=== PATIENT | male | born 1960 | race American Indian/Alaskan Native ===

== ENCOUNTER 2018-03-21 13:48 | Inpatient (IN) | payer OTHER ==
[2018-03-21] MEDS ORDERED: NACL 0.9% 1000 ML 2,000 ML ONE (14:19)
[2018-03-21] MEDS ORDERED: NACL 0.9% 500 ML 500 ML IV ONE (14:21)
[2018-03-21] MEDS ORDERED: TYLENOL PO STA (14:21)
[2018-03-21 14:25] LABS: Hematocrit 41.8 % (35.5-45.6); Hemoglobin 14.2 gm/dl (11.8-15.2); Mean Corpuscular HGB Conc 34 % (32-34); Mean Corpuscular Hemoglobin 32 pg (28-32); Mean Corpuscular Volume 95 fl (84-94); Platelet Count 142 K/mm3 (140-440); Red Blood Count 4.39 M/mm3 (3.65-5.03); Red Cell Distribution Width 15.6 % (13.2-15.2)
[2018-03-21 14:34] LABS: Calcium 9.1 mg/dL (8.4-10.2)
[2018-03-21 15:01] LABS: Basophils % (Manual) 0 % (0.0-1.8); Eosinophils % (Manual) 0 % (0.0-4.3); Total Cells Counted 100
[2018-03-21 15:02] LABS: INR 0.97 (0.87-1.13)
[2018-03-21 15:02] LABS: Anisocytosis 1+; Large Platelets Few; Platelet Estimate Cons
[2018-03-21] MEDS ORDERED: VANCOMYCIN/NS 1 GM/250 ML 1 GM/250 ML BAG IV ONE (15:08)
[2018-03-21] MEDS ORDERED: ROCEPHIN 1,000 MG in NACL 0.9% 50 ML IV ONE (15:08)
[2018-03-21] MEDS ORDERED: NACL 0.9% 1000 ML 1,000 ML IV ONE (15:11)
--- NOTE | 2018-03-21 15:14 | XRay Report ---
AP chest: SOB There is a moderately dense infiltrate primarily involving the right upper lobe and probably also involving the perihilar region. The left lung appears generally clear. The lungs are hypoventilated making cardiac size evaluation difficult there is no overt evidence of enlargement or vascular congestion. There is no priors exam for comparison. Impressions: The findings are consistent with right sided pneumonia.
[2018-03-21 15:38] LABS: Bilirubin,Direct 2.2 mg/dL (0-0.2)
[2018-03-21] MEDS ORDERED: VANCOMYCIN 2,000 MG in NACL 0.9% 500 ML 500 ML IV ONE (16:00)
[2018-03-21] MEDS ORDERED: VANCOMYCIN PHARMACY TO DOSE IV SCH (16:00)
[2018-03-21] MEDS ORDERED: ROCEPHIN/NS 1 GM/50 ML 1 GM/50 ML BAG IV SCH (16:00)
--- NOTE | 2018-03-21 16:31 | Cat Scan Report ---
FINAL REPORT PROCEDURE: CT abdomen and pelvis without contrast. TECHNIQUE: Computerized axial tomography of the abdomen and pelvis was performed without intravenous contrast. This study is performed without intravascular contrast material and its sensitivity for abdominal and pelvic pathology, including neoplasms, inflammation, abscess, free fluid, thrombosis, arterial dissection and infarction, is reduced compared with a contrast enhanced study. HISTORY: Fever. COMPARISON: No prior studies are available for comparison. FINDINGS: There is some patchy opacity in both lower lobes. This could represent pneumonia or subsegmental atelectasis. There is a partially imaged nodule located peripherally in the right middle lobe. This measures 6.6 millimeters as far as visualized. Follow-up studies to document stability or resolution are recommended. There is a small right pleural effusion. The heart size is normal. There is a small focal mass of low attenuation in the left lobe of the liver. This measures 13 millimeters in maximum dimension. This probably represents a benign lesion such as a cyst or cavernous hemangioma. The exact etiology is uncertain however. The gallbladder is present. The pancreas and spleen are grossly normal. The adrenal glands are not enlarged. Both kidneys appear normal in size and configuration. There is a tiny nonobstructing calculus in the midportion of the right kidney. This measures 2.3 millimeters. The abdominal aorta has a normal caliber. There is no retroperitoneal adenopathy. The unopacified gastrointestinal tract is unremarkable. A normal appendix is visible. The bladder, seminal vesicles and prostate appear normal. The regional skeleton appears intact. IMPRESSION: Probable pneumonia or subsegmental atelectasis in both lower lobes. Small indeterminate nodule in the right middle lobe. Small mass in the left lobe of the liver which is likely benign. Tiny nonobstructing right renal calculus.
[2018-03-21] MEDS ORDERED: BENADRYL PO ONE (17:54)
[2018-03-21] MEDS ORDERED: NACL 0.9% 500 ML 500 ML ONE (17:54)
--- NOTE | 2018-03-21 18:07 | Emergency Department Report ---
ED Fever HPI - General Chief Complaint: Fever Stated Complaint: FEVER WEAK AND COLD Time Seen by Provider: 03/21/18 14:40 Source: patient, family Exam Limitations: no limitations - History of Present Illness Timing/Duration: week Fever Severity/Quality: subjective Associated Symptoms: cough (with sputum production), muscle aches, shortness of breath, weakness (generalized). denies: abdominal pain, chest pain, confusion, diaphoresis, headache, nausea/vomiting, rash, sore throat, stiff neck, syncope ED Review of Systems ROS: Stated complaint: FEVER WEAK AND COLD Other details as noted in HPI Other: GENERAL: fever chills SKIN: No changes in skin or hair, no itching, no rashes, no jaundice HEAD: No trauma, headache, or visual changes EYES: No blurriness, tearing, itching, acute visual loss, conjunctival discoloration, or scleral icterus EARS: No hearing loss, tinnitus, vertigo, or earache NOSE: No rhinorrhea, stuffiness, sneezing, itching, or epistaxis MOUTH: No bleeding gums, hoarseness, sore throat, or swelling CARDIAC: No new murmur, chest pain, palpitations, dyspnea on exertion, orthopnea , PND, or edema RESPIRATORY: dyspnea, cough productive GI: No change in appetite, nausea, vomiting, dysphagia, change in bowel frequency, diarrhea, constipation, bleeding, hematemesis, melena, hematochezia, or abdominal pain URINARY: No frequency, urgency, polyuria, dysuria, hematuria, or incontinence MUSCULOSKELETAL: No muscle weakness, joint stiffness, decrease in range of motion, redness, swelling NEUROLOGIC: weakness generalized. HEMATOLOGIC: No anemia, easy bruising, bleeding, petechiae, or purpura ED Past Medical Hx - Past Medical History Previous Medical History?: No - Surgical History Past Surgical History?: No - Social History Smoking Status: Current Every Day Smoker Substance Use Type: Alcohol ED Physical Exam - General Limitations: No Limitations - Other Other exam information: GENERAL: Patient in no acute distress. Febrile HEAD: Normocephalic, atraumatic EYES: PERRLA, EOM intact, no scleral icterus, visual horta and acuity wnl NOSE: No tenderness, discharge, sinus tenderness MOUTH: No erythema, bleeding, exudate HEART: Regular rate and rhythm, no murmur, S1-S2 are auscultated, pulses are symmetric LUNGS: tachypnea, rales ABDOMEN: Normal bowel sounds, no tenderness, no rebound, no guarding, no masses , no CVA tenderness MUSCULOSKELETAL: Normal joint range of motion, no redness, no swelling, no tenderness NEUROLOGIC: GCS 15, Alert and Oriented x3, Cranial nerves intact, normal sensation, normal strength, normal gait, no cerebellar deficit PSYCHIATRIC: No homicidal or suicidal ideation, no anxiety, no depression, no hallucinations SKIN: Skin is warm and dry, no wounds, no rashes ED Course Vital Signs 03/21/18 03/21/18 03/21/18 13:52 15:19 16:15 Temperature 103 F H Pulse Rate 108 H 91 H Respiratory 20 33 H Rate Blood Pressure 154/97 142/86 146/90 O2 Sat by Pulse 88 Oximetry 03/21/18 03/21/18 03/21/18 17:54 18:00 19:19 Temperature 99.2 F Pulse Rate 79 90 Respiratory 28 H 14 Rate Blood Pressure 145/72 135/70 O2 Sat by Pulse Oximetry ED Medical Decision Making - Lab Data Result diagrams: 03/21/18 14:06 03/21/18 14:06 Laboratory Results - last 24 hr 03/21/18 03/21/18 03/21/18 14:06 14:06 14:11 WBC 17.1 H RBC 4.39 Hgb 14.2 Hct 41.8 MCV 95 H MCH 32 MCHC 34 RDW 15.6 H Plt Count 142 Add Manual Diff Complete Total Counted 100 Seg Neuts % (Manual) 94.0 H Band Neutrophils % 0 Lymphocytes % (Manual) 4.0 L Reactive Lymphs % (Man) 0 Monocytes % (Manual) 2.0 Eosinophils % (Manual) 0 Basophils % (Manual) 0 Metamyelocytes % 0 Myelocytes % 0 Promyelocytes % 0 Blast Cells % 0 Nucleated RBC % Not Reportable Seg Neutrophils # Man 16.1 H Band Neutrophils # 0.0 Lymphocytes # (Manual) 0.7 L Abs React Lymphs (Man) 0.0 Monocytes # (Manual) 0.3 Eosinophils # (Manual) 0.0 Basophils # (Manual) 0.0 Metamyelocytes # 0.0 Myelocytes # 0.0 Promyelocytes # 0.0 Blast Cells # 0.0 WBC Morphology Not Reportable Hypersegmented Neuts Not Reportable Hyposegmented Neuts Not Reportable Hypogranular Neuts Not Reportable Smudge Cells Not Reportable Toxic Granulation Not Reportable Toxic Vacuolation Not Reportable Dohle Bodies Not Reportable Pelger-Huet Anomaly Not Reportable [place] Rods Not Reportable Platelet Estimate Cons Clumped Platelets Not Reportable Plt Clumps, EDTA Not Reportable Large Platelets Few Giant Platelets Not Reportable Platelet Satelliting Not Reportable Plt Morphology Comment Not Reportable RBC Morphology Not Reportable Dimorphic RBCs Not Reportable Polychromasia Not Reportable Hypochromasia Not Reportable Poikilocytosis Not Reportable Anisocytosis 1+ Microcytosis Not Reportable Macrocytosis Not Reportable Spherocytes Not Reportable Pappenheimer Bodies Not Reportable Sickle Cells Not Reportable Target Cells Not Reportable Tear Drop Cells Not Reportable Ovalocytes Not Reportable Helmet Cells Not Reportable [place] Bodies Not Reportable [place] Rings Not Reportable [place] Cells Not Reportable Bite Cells Not Reportable Crenated Cell Not Reportable Elliptocytes Not Reportable Acanthocytes (Spur) Not Reportable Rouleaux Not Reportable Hemoglobin C Crystals Not Reportable Schistocytes Not Reportable Malaria parasites Not Reportable Jeovany Bodies Not Reportable Hem Pathologist Commnt No PT INR VBG pH Sodium 127 L Potassium 3.5 L Chloride 83.6 L Carbon Dioxide 24 Anion Gap 23 BUN 49 H Creatinine 6.4 H Estimated GFR 11 BUN/Creatinine Ratio 8 Glucose 114 H Lactic Acid 1.50 Calcium 9.1 Total Bilirubin Direct Bilirubin Indirect Bilirubin AST ALT Alkaline Phosphatase Troponin T NT-Pro-B Natriuret Pep Total Protein Albumin Albumin/Globulin Ratio Urine Color Urine Turbidity Urine pH Ur Specific [place] Urine Protein Urine Glucose (UA) Urine Ketones Urine Blood Urine Nitrite Urine Bilirubin Urine Urobilinogen Ur Leukocyte Esterase Urine WBC (Auto) Urine RBC (Auto) U Epithel Cells (Auto) Urine Bacteria (Auto) Amorphous Crystals 03/21/18 03/21/18 03/21/18 14:25 14:31 15:13 WBC RBC Hgb Hct MCV MCH MCHC RDW Plt Count Add Manual Diff Total Counted Seg Neuts % (Manual) Band Neutrophils % Lymphocytes % (Manual) Reactive Lymphs % (Man) Monocytes % (Manual) Eosinophils % (Manual) Basophils % (Manual) Metamyelocytes % Myelocytes % Promyelocytes % Blast Cells % Nucleated RBC % Seg Neutrophils # Man Band Neutrophils # Lymphocytes # (Manual) Abs React Lymphs (Man) Monocytes # (Manual) Eosinophils # (Manual) Basophils # (Manual) Metamyelocytes # Myelocytes # Promyelocytes # Blast Cells # WBC Morphology Hypersegmented Neuts Hyposegmented Neuts Hypogranular Neuts Smudge Cells Toxic Granulation Toxic Vacuolation Dohle Bodies Pelger-Huet Anomaly [place] Rods Platelet Estimate Clumped Platelets Plt Clumps, EDTA Large Platelets Giant Platelets Platelet Satelliting Plt Morphology Comment RBC Morphology Dimorphic RBCs Polychromasia Hypochromasia Poikilocytosis Anisocytosis Microcytosis Macrocytosis Spherocytes Pappenheimer Bodies Sickle Cells Target Cells Tear Drop Cells Ovalocytes Helmet Cells [place]-L[place] Bodies [place] Rings [place] Cells Bite Cells Crenated Cell Elliptocytes Acanthocytes (Spur) Rouleaux Hemoglobin C Crystals Schistocytes Malaria parasites Jeovany Bodies Hem Pathologist Commnt PT 13.4 INR 0.97 VBG pH 7.371 Sodium Potassium Chloride Carbon Dioxide Anion Gap BUN Creatinine Estimated GFR BUN/Creatinine Ratio Glucose Lactic Acid Calcium Total Bilirubin 2.90 H Direct Bilirubin 2.2 H Indirect Bilirubin 0.7 AST 234 H ALT 195 H Alkaline Phosphatase 148 H Troponin T NT-Pro-B Natriuret Pep Total Protein 7.3 Albumin 3.0 L Albumin/Globulin Ratio 0.7 Urine Color Urine Turbidity Urine pH Ur Specific [place] Urine Protein Urine Glucose (UA) Urine Ketones Urine Blood Urine Nitrite Urine Bilirubin Urine Urobilinogen Ur Leukocyte Esterase Urine WBC (Auto) Urine RBC (Auto) U Epithel Cells (Auto) Urine Bacteria (Auto) Amorphous Crystals 03/21/18 03/21/18 03/21/18 15:17 17:11 17:52 WBC RBC Hgb Hct MCV MCH MCHC RDW Plt Count Add Manual Diff Total Counted Seg Neuts % (Manual) Band Neutrophils % Lymphocytes % (Manual) Reactive Lymphs % (Man) Monocytes % (Manual) Eosinophils % (Manual) Basophils % (Manual) Metamyelocytes % Myelocytes % Promyelocytes % Blast Cells % Nucleated RBC % Seg Neutrophils # Man Band Neutrophils # Lymphocytes # (Manual) Abs React Lymphs (Man) Monocytes # (Manual) Eosinophils # (Manual) Basophils # (Manual) Metamyelocytes # Myelocytes # Promyelocytes # Blast Cells # WBC Morphology Hypersegmented Neuts Hyposegmented Neuts Hypogranular Neuts Smudge Cells Toxic Granulation Toxic Vacuolation Dohle Bodies Pelger-Huet Anomaly [place] Rods Platelet Estimate Clumped Platelets Plt Clumps, EDTA Large Platelets Giant Platelets Platelet Satelliting Plt Morphology Comment RBC Morphology Dimorphic RBCs Polychromasia Hypochromasia Poikilocytosis Anisocytosis Microcytosis Macrocytosis Spherocytes Pappenheimer Bodies Sickle Cells Target Cells Tear Drop Cells Ovalocytes Helmet Cells [place] Bodies Elmer Rings [place] Cells Bite Cells Crenated Cell Elliptocytes Acanthocytes (Spur) Rouleaux Hemoglobin C Crystals Schistocytes Malaria parasites Jeovany Bodies Hem Pathologist Commnt PT INR VBG pH Sodium Potassium Chloride Carbon Dioxide Anion Gap BUN Creatinine Estimated GFR BUN/Creatinine Ratio Glucose Lactic Acid 1.10 Calcium Total Bilirubin Direct Bilirubin Indirect Bilirubin AST ALT Alkaline Phosphatase Troponin T < 0.010 NT-Pro-B Natriuret Pep 1188 H Total Protein Albumin Albumin/Globulin Ratio Urine Color Yellow Urine Turbidity Clear Urine pH 5.0 Ur Specific [place] 1.010 Urine Protein 30 mg/dl Urine Glucose (UA) Neg Urine Ketones Neg Urine Blood Mod Urine Nitrite Neg Urine Bilirubin Neg Urine Urobilinogen 4.0 Ur Leukocyte Esterase Neg Urine WBC (Auto) 5.0 Urine RBC (Auto) 16.0 U Epithel Cells (Auto) 1.0 Urine Bacteria (Auto) 1+ Amorphous Crystals Few - EKG Data When compared to previous EKG there are: no significant change - Radiology Data Radiology results: report reviewed - Medical Decision Making Patient comfortable. Updated with results. Plan admit for further evaluation. Hospitalists accepts admission. Critical care attestation.: If time is entered above; I have spent that time in minutes in the direct care of this critically ill patient, excluding procedure time. ED Disposition Clinical Impression: Weakness Sepsis Qualifiers: Sepsis type: sepsis due to unspecified organism Qualified Code(s): A41.9 - Sepsis, unspecified organism Pneumonia Qualifiers: Pneumonia type: due to unspecified organism Laterality: right Lung location: lower lobe of lung Qualified Code(s): J18.1 - Lobar pneumonia, unspecified organism Acute renal failure Qualifiers: Acute renal failure type: unspecified Qualified Code(s): N17.9 - Acute kidney failure, unspecified Disposition: OP ADMIT IP TO THIS HOSP Is pt being admited?: Yes Condition: Stable Instructions: Bacterial Pneumonia (ED) Referrals: PRIMARY CARE, [Primary Care Provider] - 3-5 Days Time of Disposition: 18:07
[2018-03-21 18:23] LABS: Amorphous Crystals,Urine Few; Bacteria,Urine 1+ /HPF (Negative); Bilirubin,Urine NEG (Negative); Blood,Urine MOD (Negative); Color,Urine Yellow (Yellow)
--- NOTE | 2018-03-21 18:56 | History and Physical Report ---
History of Present Illness Date of examination: 03/21/18 Date of admission: 03/21/2018 Chief complaint: Chief complaint: Fever and cough for 4 days History of present illness: History of present illness: 58-year-old black male with no significant past medical history comes in for fever and cough of 4 days duration. Cough productive of mucoid to yellow sputum. No chills. Some shortness of breath present. No chest pain. Patient smokes a word to half a pack a day. For the last 40 years. No other drugs. No history of congestive heart failure or coronary artery disease. No exacerbating or relieving factors Past History Past Medical History: No medical history Past Surgical History: No surgical history Social history: lives with family, smoking, full code Family history: hypertension Medications and Allergies Allergies Allergy/AdvReac Type Severity Reaction Status Date / Time No Known Allergies Allergy Unverified 03/21/18 13:52 Active Meds: Active Medications Ceftriaxone Sodium (Rocephin/Ns 1 Gm/50 Ml) 1 gm in 50 mls @ 100 mls/hr IV ONCE ALF Last Admin: 03/21/18 16:57 Dose: 100 mls/hr Vancomycin HCl (Vancomycin Pharmacy To Dose) 1 each IV PKCONSULT [facility] Review of Systems All systems: negative Constitutional: fever, sweats, weakness, malaise, no weight loss, no weight gain , no chills, no anorexia, no fatigue, no lethargy, no chronic headaches, no poor appetite, no daytime sleepiness, no chronic pain, no other Ears, nose, mouth and throat: no dysphagia, no hoarseness, no sore throat, no swelling in mouth, no swelling in throat Cardiovascular: shortness of breath, no chest pain, no orthopnea, no palpitations, no rapid/irregular heart beat, no edema, no syncope, no lightheadedness Respiratory: cough, cough with sputum, shortness of breath, congestion Gastrointestinal: no abdominal pain, no nausea, no vomiting, no diarrhea, no constipation, no change in bowel habits, no hematemesis, no coffee ground emesis Genitourinary Male: no dysuria, no hematuria, no flank pain, no discharge, no urinary frequency, no urinary hesitancy, no nocturia Musculoskeletal: no neck stiffness, no neck pain, no shooting arm pain, no arm numbness/tingling, no low back pain Integumentary: no rash, no pruritis, no redness, no sores, no wounds, no jaundice, no boils, no blisters Neurological: no head injury, no transient paralysis, no paralysis, no weakness , no parathesias, no numbness, no tingling, no seizures, no syncope, no tremors , no ataxia, no lack of coordination Psychiatric: no anxiety, no memory loss, no change in sleep habits, no sleep disturbances, no insomnia, no hypersomnia, no change in appetite, no change in libido, no suicidal ideation, no disorientation, no hallucinations Endocrine: no cold intolerance, no heat intolerance, no polyphagia, no excessive thirst, no polydipsia, no polyuria, no nocturia, no excessive sweating , no flushing, no weight change Hematologic/Lymphatic: no easy bruising, no easy bleeding Allergic/Immunologic: no urticaria, no allergic rhinitis, no wheezing Exam - Constitutional Vitals: Temp Pulse Resp BP Pulse Ox 99.2 F 108 H 20 154/97 88 03/21/18 17:54 03/21/18 13:52 03/21/18 13:52 03/21/18 13:52 03/21/18 13:52 General appearance: Present: no acute distress, well-nourished - EENT Eyes: Present: PERRL ENT: hearing intact, clear oral mucosa - Neck Neck: Present: supple, normal ROM - Respiratory Respiratory effort: normal Respiratory: bilateral: CTA - Cardiovascular Heart rate: 78 Rhythm: regular Heart Sounds: Present: S1 & S2. Absent: rub, click - Extremities Extremities: no ischemia, pulses intact, pulses symmetrical, No edema Peripheral Pulses: within normal limits - Abdominal General gastrointestinal: Present: soft, non-tender, non-distended, normal bowel sounds Male genitourinary: Present: normal - Integumentary Integumentary: Present: clear, warm, dry - Musculoskeletal Musculoskeletal: gait normal, strength equal bilaterally - Psychiatric Psychiatric: appropriate mood/affect, intact judgment & insight - Neurologic Neurologic: CNII-XII intact, moves all extremities - Allied Health Allied health notes reviewed: nursing, case management Results - Labs CBC & Chem 7: 03/21/18 14:06 03/21/18 14:06 Labs: Laboratory Last Values WBC 17.1 K/mm3 (4.5-11.0) H 03/21/18 14:06 RBC 4.39 M/mm3 (3.65-5.03) 03/21/18 14:06 Hgb 14.2 gm/dl (11.8-15.2) 03/21/18 14:06 Hct 41.8 % (35.5-45.6) 03/21/18 14:06 MCV 95 fl (84-94) H 03/21/18 14:06 MCH 32 pg (28-32) 03/21/18 14:06 MCHC 34 % (32-34) 03/21/18 14:06 RDW 15.6 % (13.2-15.2) H 03/21/18 14:06 Plt Count 142 K/mm3 (140-440) 03/21/18 14:06 Add Manual Diff Complete 03/21/18 14:06 Total Counted 100 03/21/18 14:06 Seg Neuts % (Manual) 94.0 % (40.0-70.0) H 03/21/18 14:06 Band Neutrophils % 0 % 03/21/18 14:06 Lymphocytes % (Manual) 4.0 % (13.4-35.0) L 03/21/18 14:06 Reactive Lymphs % (Man) 0 % 03/21/18 14:06 Monocytes % (Manual) 2.0 % (0.0-7.3) 03/21/18 14:06 Eosinophils % (Manual) 0 % (0.0-4.3) 03/21/18 14:06 Basophils % (Manual) 0 % (0.0-1.8) 03/21/18 14:06 Metamyelocytes % 0 % 03/21/18 14:06 Myelocytes % 0 % 03/21/18 14:06 Promyelocytes % 0 % 03/21/18 14:06 Blast Cells % 0 % 03/21/18 14:06 Nucleated RBC % Not Reportable 03/21/18 14:06 Seg Neutrophils # Man 16.1 K/mm3 (1.8-7.7) H 03/21/18 14:06 Band Neutrophils # 0.0 K/mm3 03/21/18 14:06 Lymphocytes # (Manual) 0.7 K/mm3 (1.2-5.4) L 03/21/18 14:06 Abs React Lymphs (Man) 0.0 K/mm3 03/21/18 14:06 Monocytes # (Manual) 0.3 K/mm3 (0.0-0.8) 03/21/18 14:06 Eosinophils # (Manual) 0.0 K/mm3 (0.0-0.4) 03/21/18 14:06 Basophils # (Manual) 0.0 K/mm3 (0.0-0.1) 03/21/18 14:06 Metamyelocytes # 0.0 K/mm3 03/21/18 14:06 Myelocytes # 0.0 K/mm3 03/21/18 14:06 Promyelocytes # 0.0 K/mm3 03/21/18 14:06 Blast Cells # 0.0 K/mm3 03/21/18 14:06 WBC Morphology Not Reportable 03/21/18 14:06 Hypersegmented Neuts Not Reportable 03/21/18 14:06 Hyposegmented Neuts Not Reportable 03/21/18 14:06 Hypogranular Neuts Not Reportable 03/21/18 14:06 Smudge Cells Not Reportable 03/21/18 14:06 Toxic Granulation Not Reportable 03/21/18 14:06 Toxic Vacuolation Not Reportable 03/21/18 14:06 Dohle Bodies Not Reportable 03/21/18 14:06 Pelger-Huet Anomaly Not Reportable 03/21/18 14:06 [place] Rods Not Reportable 03/21/18 14:06 Platelet Estimate Cons 03/21/18 14:06 Clumped Platelets Not Reportable 03/21/18 14:06 Plt Clumps, EDTA Not Reportable 03/21/18 14:06 Large Platelets Few 03/21/18 14:06 Giant Platelets Not Reportable 03/21/18 14:06 Platelet Satelliting Not Reportable 03/21/18 14:06 Plt Morphology Comment Not Reportable 03/21/18 14:06 RBC Morphology Not Reportable 03/21/18 14:06 Dimorphic RBCs Not Reportable 03/21/18 14:06 Polychromasia Not Reportable 03/21/18 14:06 Hypochromasia Not Reportable 03/21/18 14:06 Poikilocytosis Not Reportable 03/21/18 14:06 Anisocytosis 1+ 03/21/18 14:06 Microcytosis Not Reportable 03/21/18 14:06 Macrocytosis Not Reportable 03/21/18 14:06 Spherocytes Not Reportable 03/21/18 14:06 Pappenheimer Bodies Not Reportable 03/21/18 14:06 Sickle Cells Not Reportable 03/21/18 14:06 Target Cells Not Reportable 03/21/18 14:06 Tear Drop Cells Not Reportable 03/21/18 14:06 Ovalocytes Not Reportable 03/21/18 14:06 Helmet Cells Not Reportable 03/21/18 14:06 [place] Common Bodies Not Reportable 03/21/18 14:06 [place] Rings Not Reportable 03/21/18 14:06 Corn Cells Not Reportable 03/21/18 14:06 Bite Cells Not Reportable 03/21/18 14:06 Crenated Cell Not Reportable 03/21/18 14:06 Elliptocytes Not Reportable 03/21/18 14:06 Acanthocytes (Spur) Not Reportable 03/21/18 14:06 Rouleaux Not Reportable 03/21/18 14:06 Hemoglobin C Crystals Not Reportable 03/21/18 14:06 Schistocytes Not Reportable 03/21/18 14:06 Malaria parasites Not Reportable 03/21/18 14:06 Jeovany Bodies Not Reportable 03/21/18 14:06 Hem Pathologist Commnt No 03/21/18 14:06 PT 13.4 Sec. (12.2-14.9) 03/21/18 14:31 INR 0.97 (0.87-1.13) 03/21/18 14:31 VBG pH 7.371 (7.320-7.420) 03/21/18 14:25 Sodium 127 mmol/L (137-145) L 03/21/18 14:06 Potassium 3.5 mmol/L (3.6-5.0) L 03/21/18 14:06 Chloride 83.6 mmol/L (98-107) L 03/21/18 14:06 Carbon Dioxide 24 mmol/L (22-30) 03/21/18 14:06 Anion Gap 23 mmol/L 03/21/18 14:06 BUN 49 mg/dL (9-20) H 03/21/18 14:06 Creatinine 6.4 mg/dL (0.8-1.5) H 03/21/18 14:06 Estimated GFR 11 ml/min 03/21/18 14:06 BUN/Creatinine Ratio 8 % 03/21/18 14:06 Glucose 114 mg/dL (75-100) H 03/21/18 14:06 Lactic Acid 1.10 mmol/L (0.7-2.0) 03/21/18 17:11 Calcium 9.1 mg/dL (8.4-10.2) 03/21/18 14:06 Total Bilirubin 2.90 mg/dL (0.1-1.2) H 03/21/18 15:13 Direct Bilirubin 2.2 mg/dL (0-0.2) H 03/21/18 15:13 Indirect Bilirubin 0.7 mg/dL 03/21/18 15:13 AST 234 units/L (5-40) H 03/21/18 15:13 ALT 195 units/L (7-56) H 03/21/18 15:13 Alkaline Phosphatase 148 units/L (35-129) H 03/21/18 15:13 Troponin T < 0.010 ng/mL (0.00-0.029) 03/21/18 15:17 NT-Pro-B Natriuret Pep 1188 pg/mL (0-900) H 03/21/18 15:17 Total Protein 7.3 g/dL (6.3-8.2) 03/21/18 15:13 Albumin 3.0 g/dL (3.9-5) L 03/21/18 15:13 Albumin/Globulin Ratio 0.7 % 03/21/18 15:13 Urine Color Yellow (Yellow) 03/21/18 17:52 Urine Turbidity Clear (Clear) 03/21/18 17:52 Urine pH 5.0 (5.0-7.0) 03/21/18 17:52 Ur Specific [place] 1.010 (1.003-1.030) 03/21/18 17:52 Urine Protein 30 mg/dl mg/dL (Negative) 03/21/18 17:52 Urine Glucose (UA) Neg mg/dL (Negative) 03/21/18 17:52 Urine Ketones Neg mg/dL (Negative) 03/21/18 17:52 Urine Blood Mod (Negative) 03/21/18 17:52 Urine Nitrite Neg (Negative) 03/21/18 17:52 Urine Bilirubin Neg (Negative) 03/21/18 17:52 Urine Urobilinogen 4.0 mg/dL (<2.0) 03/21/18 17:52 Ur Leukocyte Esterase Neg (Negative) 03/21/18 17:52 Urine WBC (Auto) 5.0 /HPF (0.0-6.0) 03/21/18 17:52 Urine RBC (Auto) 16.0 /HPF (0.0-6.0) 03/21/18 17:52 U Epithel Cells (Auto) 1.0 /HPF (0-13.0) 03/21/18 17:52 Urine Bacteria (Auto) 1+ /HPF (Negative) 03/21/18 17:52 Amorphous Crystals Few 03/21/18 17:52 Short CBC 03/21/18 Range/Units 14:06 WBC 17.1 H (4.5-11.0) K/mm3 Hgb 14.2 (11.8-15.2) gm/dl Hct 41.8 (35.5-45.6) % Plt Count 142 (140-440) K/mm3 BMP 03/21/18 14:06 Sodium 127 L Potassium 3.5 L Chloride 83.6 L Carbon Dioxide 24 BUN 49 H Creatinine 6.4 H Glucose 114 H Calcium 9.1 Cardiac Enzymes 03/21/18 Range/Units 15:17 Troponin T < 0.010 (0.00-0.029) ng/mL Liver Function 03/21/18 Range/Units 15:13 Total Bilirubin 2.90 H (0.1-1.2) mg/dL Direct Bilirubin 2.2 H (0-0.2) mg/dL AST 234 H (5-40) units/L ALT 195 H (7-56) units/L Alkaline Phosphatase 148 H (35-129) units/L Albumin 3.0 L (3.9-5) g/dL Urine 03/21/18 Range/Units 17:52 Urine Color Yellow (Yellow) Urine pH 5.0 (5.0-7.0) Ur Specific [place] 1.010 (1.003-1.030) Urine Protein 30 mg/dl (Negative) mg/dL Urine Glucose (UA) Neg (Negative) mg/dL - Imaging and Cardiology EKG: report reviewed (sinus bradycardia heart rate of 53 per minute no acute ST- T wave changes EKG interpreted by me.) Chest x-ray: report reviewed Imaging and Cardiology: Chest x-ray There is a moderately dense infiltrate primarily involving the right upper lobe and probably also involving the perihilar region. The left lung appears generally clear. The lungs are hypoventilated making cardiac size evaluation difficult there is no overt evidence of enlargement or vascular congestion. There is no priors exam for comparison. Impressions: The findings are consistent with right sided pneumonia. CT abdomen: IMPRESSION: Probable pneumonia or subsegmental atelectasis in both lower lobes. Small indeterminate nodule in the right middle lobe. Small mass in the left lobe of the liver which is likely benign. Tiny nonobstructing right renal calculus. Assessment and Plan Advance Directives: Yes (full code) VTE prophylaxis?: Chemical Plan of care discussed with patient/family: Yes - Patient Problems (1) SIRS (systemic inflammatory response syndrome) Current Visit: Yes Status: Acute Plan to address problem: Given the Leukocytosis, Increased Creatinine and Hyponatremia --I am in favor of SIRS. (2) Acute respiratory failure Current Visit: Yes Status: Acute Qualifiers: Respiratory failure complication: hypoxia Qualified Code(s): J96.01 - Acute respiratory failure with hypoxia Plan to address problem: Initial sats are 88 2 liters oxygen (3) Pneumonia Current Visit: Yes Status: Acute Qualifiers: Pneumonia type: due to unspecified organism Laterality: right Lung location: lower lobe of lung Qualified Code(s): J18.1 - Lobar pneumonia, unspecified organism Plan to address problem: Extensive pneumonia on the right side of the lung involving upper middle and lower lobe. IV Rocephin and Zithromax initiated. Not in favor of aspiration pneumonia. Blood cultures sputum cultures ordered. ID consult if necessary (4) OSIEL (acute kidney injury) Current Visit: Yes Status: Acute Plan to address problem: IV fluids Nephrology consult (5) Acute hyponatremia Current Visit: Yes Status: Acute Plan to address problem: IV normal saline for now SIADH a possibilty because of pneumonia (6) DVT prophylaxis Current Visit: Yes Status: Acute Plan to address problem: On Heparin 5000 IU SQ Q12h
[2018-03-21] MEDS ORDERED: ZOFRAN IV PRN (19:25)
[2018-03-21] MEDS ORDERED: TYLENOL PO PRN (19:25)
[2018-03-21] MEDS ORDERED: MORPHINE IV PRN (19:25)
[2018-03-21] MEDS ORDERED: PERCOCET 5/325 PO PRN (19:25)
[2018-03-21] MEDS ORDERED: SODIUM CHLORIDE FLUSH SYRINGE 10 ML IV PRN (19:25)
[2018-03-21] MEDS ORDERED: DUONEB *Not for PRN Use IH ONE (22:09)
[2018-03-21] MEDS: HEPARIN SUB-Q SCH (23:23)
[2018-03-21] MEDS: D5NS 1,000 ML IV SCH (23:23)
[2018-03-21] MEDS: ZITHROMAX 500 MG in NACL 0.9% 250ML 250 ML IV SCH (23:24)
[2018-03-21] MEDS: SODIUM CHLORIDE FLUSH SYRINGE 10 ML IV SCH (23:24)
[2018-03-21] MEDS: DUONEB *Not for PRN Use IH SCH (23:49)
[2018-03-22 07:55] LABS: Hematocrit 36.6 % (35.5-45.6); Hemoglobin 12.4 gm/dl (11.8-15.2); Mean Corpuscular HGB Conc 34 % (32-34); Mean Corpuscular Hemoglobin 32 pg (28-32); Mean Corpuscular Volume 95 fl (84-94); Platelet Count 144 K/mm3 (140-440); Red Blood Count 3.85 M/mm3 (3.65-5.03); Red Cell Distribution Width 15.8 % (13.2-15.2)
[2018-03-22 08:12] LABS: Albumin 2.5 g/dL (3.9-5); Calcium 7.9 mg/dL (8.4-10.2)
[2018-03-22] MEDS: DUONEB *Not for PRN Use IH SCH ×4 (08:45→19:52)
--- NOTE | 2018-03-22 09:07 | Consultation ---
History of Present Illness - History of Present Illness Thank you for the consultation ! History of present illness: Patient is a 58-year-old -[place] male who has been admitted here with 4 -5 days of fever or chills cough congestion-like symptom at home the temperature was close to 101.5 he wasn't feeling well his appetite has been very poor. Patient does not follow up with any physician and does not remember seeing a doctor in getting any blood work last several years. Last time he was seen by a physician was for, sue Davis but no lab work was done. Patient is an extremely poor historian and often times during the conversation his who was present at the bedside Correcting him for several, that he made. Patient does not take any follow-up nonsteroidal drug he does not have any known history of hepatitis B C HIV. He is admitted here with acute severe renal failure, and has not been feeling well for last 7-10 days at least Past medical history is significant for No medical problem documented as patient has not been seeing a physician Current allergies: None as he is not taking any medication Social history: Very poorly involved in his health denies any history of alcohol abuse Positive for chronic tobacco abuse off and on for last 40 years Family history: Hypertension Review of system cough cold congestion fever poor appetite last 4-5 days ongoing chronic tobacco abuse No history of any difficulty voiding and joint pain all other review of systems negative Physical examination General: No acute distress HEENT: Oral mucosa dry no pharyngeal erythema no nasal bleeding Neck: Supple no evidence of any jugular venous distention no masses Chest: few basilar crackles Heart: Regular rate and rhythm S1 and S2 heard no S3-S4 or any pericardial rub Abdomen: Soft nontender bowel sounds present no renal bruit no suprapubic masses no CVA tenderness Extremity: Dry skin less than 1+ edema no peripheral petechial rashes Endocrine: Thyroid not enlarged Psychiatric: No evidence of any agitation or aggression noted Musculoskeletal: No joint effusion noted Lab studies and pertinent imagings were reviewed My assessment and plan are as follows My assessment and plan are as follows Renal failure; severe in a patient who is 58-year-old admitted with, currently no better, also has respiratory symptoms and hematuria, Patient is in need for further workup of renal failure and is no acute emergent indication for renal replacement therapy today Given that patient is presenting with pneumonia and renal failure would like to rule out any possibility of pulmonary renal syndrome patient will need a full workup for renal failure No old records available in our system CT scan of the abdomen pelvis obtained March 21 shows evidence of pneumonia; kidneys unremarkable small kidney stone nonobstructing If his renal function fails to improve patient may require initiation of renal replacement therapy with a central venous catheter, the sodium clearly discussed with patient as well as his Poorly compliant patient has never seen physicians in many many years, we may be dealing with a case of chronic kidney disease here we'll check renal ultrasonogram Abnormal liver function test currently improving, etiology unclear? Fatty liver rule out hepatitis rule out other causes Hypokalemia: To monitor and follow goal potassium around 4 check magnesium level as well Hyponatremia: Stable today at 129 improving correction of hypokalemia is also important No evidence of lactic acidosis bicarbonate around 22 Admitted with fever leukocytosis, in our system recorded MAXIMUM TEMPERATURE 102.6 blood pressure has been stable Patient was adequately counseled and educated regarding all the renal related issues Renal prognosis remains guarded at this time to follow, necessary labs and imagings will be honored as indicated by the clinical course We'll continue to follow and make recommendation from renal standpoint Thank you for the consultation. Past History Past Medical History: No medical history Past Surgical History: No surgical history Social history: lives with family, smoking, full code Family history: hypertension Medications and Allergies Allergies Allergy/AdvReac Type Severity Reaction Status Date / Time No Known Allergies Allergy Unverified 03/21/18 13:52 Home Medications Medication Instructions Recorded Confirmed Last Taken Type No Known Home Medications [No 03/21/18 03/21/18 Unknown History Reported Home Medications] Active Meds: Active Medications Acetaminophen (Tylenol) 650 mg PO Q4H PRN PRN Reason: Pain MILD(1-3)/Fever >100.5/KIRK Last Admin: 03/21/18 23:23 Dose: 650 mg Albuterol/Ipratropium (Duoneb *Not For Prn Use*) 1 ampul IH QIDRT [facility] Last Admin: 03/22/18 08:45 Dose: 1 ampul Heparin Sodium (Porcine) (Heparin) 5,000 unit SUB-Q Q12HR [facility] Last Admin: 03/21/18 23:23 Dose: 5,000 unit Dextrose/Sodium Chloride (D5ns) 1,000 mls @ 100 mls/hr IV DIRECT [facility] Last Admin: 03/21/18 23:23 Dose: 100 mls/hr Azithromycin 500 mg/ Sodium (Chloride) 250 mls @ 250 mls/hr IV Q24HR [facility] Last Admin: 03/21/18 23:24 Dose: 250 mls/hr Ceftriaxone Sodium (Rocephin/Ns 1 Gm/50 Ml) 1 gm in 50 mls @ 100 mls/hr IV Q24HR [facility] Morphine Sulfate (Morphine) 2 mg IV Q4H PRN PRN Reason: Pain, Moderate (4-6) Ondansetron HCl (Zofran) 4 mg IV Q8H PRN PRN Reason: Nausea And Vomiting Oxycodone/Acetaminophen (Percocet 5/325) 1 tab PO Q6H PRN PRN Reason: Pain, Moderate (4-6) Pneumococcal Polyvalent Vaccine (Pneumovax 23) 0.5 ml IM .ONCE ONE Stop: 03/22/18 12:01 Sodium Chloride (Sodium Chloride Flush Syringe 10 Ml) 10 ml IV BID [facility] Last Admin: 03/21/18 23:24 Dose: 10 ml Sodium Chloride (Sodium Chloride Flush Syringe 10 Ml) 10 ml IV PRN PRN PRN Reason: LINE FLUSH Exam - Vital Signs Vital signs: Vital Signs Temp Pulse Resp BP Pulse Ox 103 F H 108 H 20 154/97 88 03/21/18 13:52 03/21/18 13:52 03/21/18 13:52 03/21/18 13:52 03/21/18 13:52 Results - Lab Results 03/22/18 06:54 03/22/18 06:54 Most recent lab results Calcium 7.9 mg/dL (8.4-10.2) L 03/22/18 06:54
[2018-03-22 09:34] LABS: Anisocytosis 1+; Basophils % (Manual) 0 % (0.0-1.8); Eosinophils % (Manual) 0 % (0.0-4.3); Large Platelets Few; Total Cells Counted 100
[2018-03-22 09:35] LABS: Platelet Estimate Cons
[2018-03-22] MEDS: ZITHROMAX 500 MG in NACL 0.9% 250ML 250 ML IV SCH (10:01)
[2018-03-22] MEDS: HEPARIN SUB-Q SCH ×2 (10:02→22:20)
[2018-03-22] MEDS: SODIUM CHLORIDE FLUSH SYRINGE 10 ML IV SCH ×2 (10:02→22:21)
[2018-03-22] MEDS: ROCEPHIN/NS 1 GM/50 ML 1 GM/50 ML BAG IV SCH (10:04)
[2018-03-22] MEDS: D5NS 1,000 ML IV SCH (11:12)
--- NOTE | 2018-03-22 11:21 | Progress Note ---
Assessment and Plan Assessment and plan: Sepsis. Patient meets criteria given the fever, leukocytosis and diagnosis of pneumonia. Continue IV antibiotics and follow cultures. Acute hypoxemic respiratory failure. Cont O2 to maintain sats>92%. BiPap as clinically indicated. Right pneumonia. Extensive pneumonia on the right side of the lung involving upper middle and lower lobe. IV Rocephin and Zithromax initiated. Not in favor of aspiration pneumonia. Blood cultures sputum cultures ordered. ID consult if necessary Acute renal failure. Patient with a creatinine greater than 6. We do not have a baseline creatinine to compare. However, after discussion with Dr. Duong Ozuna of nephrology, we believe that this most likely represents acute on chronic disease. Continue to follow closely and patient may need PHARMACEUTICAL DETAILER if no significant improvement. Hyponatremia. 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 Continue to follow BMP. DVT prophylaxis. Continue heparin. History Interval history: No new issues overnight. Hospitalist Physical - Constitutional Vitals: Temp Pulse Resp BP Pulse Ox 101.1 F H 97 H 24 145/92 92 03/22/18 11:01 03/22/18 11:01 03/22/18 11:01 03/22/18 11:01 03/22/18 11:01 General appearance: Present: no acute distress, well-nourished - EENT Eyes: Present: PERRL, EOM intact ENT: hearing intact, clear oral mucosa, dentition normal - Neck Neck: Present: supple, normal ROM - Respiratory Respiratory effort: normal Respiratory: bilateral: diminished, rhonchi - Cardiovascular Rhythm: regular Heart Sounds: Present: S1 & S2. Absent: gallop, rub - Extremities Extremities: no ischemia, No edema, Full ROM - Abdominal General gastrointestinal: soft, non-tender, non-distended, normal bowel sounds - Integumentary Integumentary: Present: clear, warm, dry - Neurologic Neurologic: CNII-XII intact, moves all extremities Results - Labs CBC & Chem 7: 03/22/18 06:54 03/22/18 06:54 Labs: Laboratory Last Values WBC 16.9 K/mm3 (4.5-11.0) H 03/22/18 06:54 RBC 3.85 M/mm3 (3.65-5.03) 03/22/18 06:54 Hgb 12.4 gm/dl (11.8-15.2) 03/22/18 06:54 Hct 36.6 % (35.5-45.6) 03/22/18 06:54 MCV 95 fl (84-94) H 03/22/18 06:54 MCH 32 pg (28-32) 03/22/18 06:54 MCHC 34 % (32-34) 03/22/18 06:54 RDW 15.8 % (13.2-15.2) H 03/22/18 06:54 Plt Count 144 K/mm3 (140-440) 03/22/18 06:54 Add Manual Diff Complete 03/22/18 06:54 Total Counted 100 03/22/18 06:54 Seg Neuts % (Manual) 94.0 % (40.0-70.0) H 03/22/18 06:54 Band Neutrophils % 0 % 03/22/18 06:54 Lymphocytes % (Manual) 4.0 % (13.4-35.0) L 03/22/18 06:54 Reactive Lymphs % (Man) 0 % 03/22/18 06:54 Monocytes % (Manual) 2.0 % (0.0-7.3) 03/22/18 06:54 Eosinophils % (Manual) 0 % (0.0-4.3) 03/22/18 06:54 Basophils % (Manual) 0 % (0.0-1.8) 03/22/18 06:54 Metamyelocytes % 0 % 03/22/18 06:54 Myelocytes % 0 % 03/22/18 06:54 Promyelocytes % 0 % 03/22/18 06:54 Blast Cells % 0 % 03/22/18 06:54 Nucleated RBC % Not Reportable 03/22/18 06:54 Seg Neutrophils # Man 15.9 K/mm3 (1.8-7.7) H 03/22/18 06:54 Band Neutrophils # 0.0 K/mm3 03/22/18 06:54 Lymphocytes # (Manual) 0.7 K/mm3 (1.2-5.4) L 03/22/18 06:54 Abs React Lymphs (Man) 0.0 K/mm3 03/22/18 06:54 Monocytes # (Manual) 0.3 K/mm3 (0.0-0.8) 03/22/18 06:54 Eosinophils # (Manual) 0.0 K/mm3 (0.0-0.4) 03/22/18 06:54 Basophils # (Manual) 0.0 K/mm3 (0.0-0.1) 03/22/18 06:54 Metamyelocytes # 0.0 K/mm3 03/22/18 06:54 Myelocytes # 0.0 K/mm3 03/22/18 06:54 Promyelocytes # 0.0 K/mm3 03/22/18 06:54 Blast Cells # 0.0 K/mm3 03/22/18 06:54 WBC Morphology Not Reportable 03/22/18 06:54 Hypersegmented Neuts Not Reportable 03/22/18 06:54 Hyposegmented Neuts Not Reportable 03/22/18 06:54 Hypogranular Neuts Not Reportable 03/22/18 06:54 Smudge Cells Not Reportable 03/22/18 06:54 Toxic Granulation Not Reportable 03/22/18 06:54 Toxic Vacuolation Not Reportable 03/22/18 06:54 Dohle Bodies Not Reportable 03/22/18 06:54 Pelger-Huet Anomaly Not Reportable 03/22/18 06:54 [place] Rods Not Reportable 03/22/18 06:54 Platelet Estimate Cons 03/22/18 06:54 Clumped Platelets Not Reportable 03/22/18 06:54 Plt Clumps, EDTA Not Reportable 03/22/18 06:54 Large Platelets Few 03/22/18 06:54 Giant Platelets Not Reportable 03/22/18 06:54 Platelet Satelliting Not Reportable 03/22/18 06:54 Plt Morphology Comment Not Reportable 03/22/18 06:54 RBC Morphology Not Reportable 03/22/18 06:54 Dimorphic RBCs Not Reportable 03/22/18 06:54 Polychromasia Not Reportable 03/22/18 06:54 Hypochromasia Not Reportable 03/22/18 06:54 Poikilocytosis Not Reportable 03/22/18 06:54 Anisocytosis 1+ 03/22/18 06:54 Microcytosis Not Reportable 03/22/18 06:54 Macrocytosis Not Reportable 03/22/18 06:54 Spherocytes Not Reportable 03/22/18 06:54 Pappenheimer Bodies Not Reportable 03/22/18 06:54 Sickle Cells Not Reportable 03/22/18 06:54 Target Cells Not Reportable 03/22/18 06:54 Tear Drop Cells Not Reportable 03/22/18 06:54 Ovalocytes Not Reportable 03/22/18 06:54 Helmet Cells Not Reportable 03/22/18 06:54 [place] Bodies Not Reportable 03/22/18 06:54 [place] Rings Not Reportable 03/22/18 06:54 [place] Cells Not Reportable 03/22/18 06:54 Bite Cells Not Reportable 03/22/18 06:54 Crenated Cell Not Reportable 03/22/18 06:54 Elliptocytes Not Reportable 03/22/18 06:54 Acanthocytes (Spur) Not Reportable 03/22/18 06:54 Rouleaux Not Reportable 03/22/18 06:54 Hemoglobin C Crystals Not Reportable 03/22/18 06:54 Schistocytes Not Reportable 03/22/18 06:54 Malaria parasites Not Reportable 03/22/18 06:54 [place] Bodies Not Reportable 03/22/18 06:54 Hem Pathologist Commnt No 03/22/18 06:54 PT 13.4 Sec. (12.2-14.9) 03/21/18 14:31 INR 0.97 (0.87-1.13) 03/21/18 14:31 VBG pH 7.371 (7.320-7.420) 03/21/18 14:25 Sodium 129 mmol/L (137-145) L 03/22/18 06:54 Potassium 3.5 mmol/L (3.6-5.0) L 03/22/18 06:54 Chloride 89.6 mmol/L (98-107) L 03/22/18 06:54 Carbon Dioxide 22 mmol/L (22-30) 03/22/18 06:54 Anion Gap 21 mmol/L 03/22/18 06:54 BUN 55 mg/dL (9-20) H 03/22/18 06:54 Creatinine 6.8 mg/dL (0.8-1.5) H 03/22/18 06:54 Estimated GFR 10 ml/min 03/22/18 06:54 BUN/Creatinine Ratio 8 % 03/22/18 06:54 Glucose 117 mg/dL (75-100) H 03/22/18 06:54 Hemoglobin A1c 5.8 % (4-6) 03/21/18 14:06 Lactic Acid 1.10 mmol/L (0.7-2.0) 03/21/18 17:11 Calcium 7.9 mg/dL (8.4-10.2) L 03/22/18 06:54 Total Bilirubin 1.90 mg/dL (0.1-1.2) H 03/22/18 06:54 Direct Bilirubin 2.2 mg/dL (0-0.2) H 03/21/18 15:13 Indirect Bilirubin 0.7 mg/dL 03/21/18 15:13 AST 136 units/L (5-40) H 03/22/18 06:54 ALT 142 units/L (7-56) H 03/22/18 06:54 Alkaline Phosphatase 135 units/L (35-129) H 03/22/18 06:54 Troponin T < 0.010 ng/mL (0.00-0.029) 03/21/18 15:17 NT-Pro-B Natriuret Pep 1188 pg/mL (0-900) H 03/21/18 15:17 Total Protein 6.0 g/dL (6.3-8.2) L 03/22/18 06:54 Albumin 2.5 g/dL (3.9-5) L 03/22/18 06:54 Albumin/Globulin Ratio 0.7 % 03/22/18 06:54 Urine Color Yellow (Yellow) 03/21/18 17:52 Urine Turbidity Clear (Clear) 03/21/18 17:52 Urine pH 5.0 (5.0-7.0) 03/21/18 17:52 Ur Specific [place] 1.010 (1.003-1.030) 03/21/18 17:52 Urine Protein 30 mg/dl mg/dL (Negative) 03/21/18 17:52 Urine Glucose (UA) Neg mg/dL (Negative) 03/21/18 17:52 Urine Ketones Neg mg/dL (Negative) 03/21/18 17:52 Urine Blood Mod (Negative) 03/21/18 17:52 Urine Nitrite Neg (Negative) 03/21/18 17:52 Urine Bilirubin Neg (Negative) 03/21/18 17:52 Urine Urobilinogen 4.0 mg/dL (<2.0) 03/21/18 17:52 Ur Leukocyte Esterase Neg (Negative) 03/21/18 17:52 Urine WBC (Auto) 5.0 /HPF (0.0-6.0) 03/21/18 17:52 Urine RBC (Auto) 16.0 /HPF (0.0-6.0) 03/21/18 17:52 U Epithel Cells (Auto) 1.0 /HPF (0-13.0) 03/21/18 17:52 Urine Bacteria (Auto) 1+ /HPF (Negative) 03/21/18 17:52 Amorphous Crystals Few 03/21/18 17:52
[2018-03-22] MEDS ORDERED: PNEUMOVAX 23 IM ONE (12:00)
[2018-03-22] MEDS ORDERED: ZOSYN/NS 2.25 GM/50ML 2.25 GM/50 ML BAG IV SCH (16:00)
--- NOTE | 2018-03-22 16:49 | XRay Report ---
FINAL REPORT EXAM: XR CHEST 1V AP HISTORY: resp failure TECHNIQUE: Frontal chest radiograph. PRIORS: None. FINDINGS: The cardiomediastinal silhouette is normal. Multifocal patchy consolidative opacities are seen, most severe in the upper lobes. No pleural effusion. No pneumothorax. No acute osseous abnormality. IMPRESSION: Multifocal patchy opacities in the lungs, most severe in the upper lobes concerning for multifocal pneumonia.
[2018-03-22 17:13] LABS: Hepatitis A Antibody IgM Non-Reactive (NonReactive); Hepatitis B Core IgM Non-Reactive (NonReactive); Hepatitis B Surface Antigen Non-Reactive (Negative); Hepatitis C Virus Antibody Non-Reactive (NonReactive)
[2018-03-22] MEDS ORDERED: ZOSYN/NS 3.375GM/50ML 3.375 GM/50 ML BAG IV SCH (22:00)
[2018-03-22] MEDS: ZOSYN/NS 2.25 GM/50ML 2.25 GM/50 ML BAG IV SCH (22:09)
[2018-03-23] MEDS: D5NS 1,000 ML IV SCH ×2 (03:00→19:32)
[2018-03-23] MEDS: ZOSYN/NS 2.25 GM/50ML 2.25 GM/50 ML BAG IV SCH ×3 (05:00→23:04)
[2018-03-23] MEDS: DUONEB *Not for PRN Use IH SCH ×4 (08:20→20:56)
--- NOTE | 2018-03-23 09:04 | Progress Note ---
Subjective Interval history: Came to see the patient in the room patient has gone down for testing: Met with patient's according to him he has been urinating within 5 and 6 times a day , Reviewed the labs doesn't and chart vitals intake and output. Intake and output niece to be monitored closely Will follow up on the pending labs, obtain renal ultrasonogram there is no emergent indication for renal replacement therapy but if kidney function does not improve by tomorrow patient may need initiation of therapy Objective - Vital Signs Vital signs: Vital Signs - 12hr 03/22/18 03/22/18 22:00 23:07 Temperature 97.5 F L Pulse Rate 69 Respiratory 18 18 Rate Blood Pressure 140/90 O2 Sat by Pulse 96 96 Oximetry - Lab 03/23/18 14:58 03/23/18 13:47 Most recent lab results Calcium 7.9 mg/dL (8.4-10.2) L 03/22/18 06:54
--- NOTE | 2018-03-23 09:12 | Cat Scan Report ---
CTA CHEST INDICATION: Hypoxia. COMPARISON: 03/21/[address] FINDINGS: Chest CTA performed following intravenous administration of 100 cc of Omnipaque 350. Rotational MIP's also obtained. Limited inspiration with mild exaggerated heart size/borderline cardiomegaly. No pericardial effusion. Minimal left pleural effusion. Small right pleural effusion measuring 2.5 cm AP thickness. Mild bibasilar atelectasis. Diffuse bilateral multifocal pneumonias noted, most involving the right upper lobe with an index confluent measurement of approximately 10 x 6.5 cm as on axial series 2, image 28. Pneumonias appear nodular at places, most in the left upper lobe as on axial images 27-57 with the largest index peripheral lesion measuring approximately 2 cm on axial image 31. Air bronchograms, mild peribronchial consolidation and right hilar lymphoid soft tissue prominence also noted. No discrete remainder lymphadenopathy. Patent central airway. No aortic aneurysm or dissection. Mild aortic arch calcifications. No focal suspicious pulmonary arterial filling defects, to the extent assessed. Normal imaged thyroid. Slight nonspecific distal esophageal prominence/thickening. Minimal upper abdominal ascites noted anterior perihepatic and perisplenic as on axial image 87, amongst others. A 0.9 cm indeterminate left hepatic hypodensity. Slight bilateral perinephric stranding. Multilevel mid to lower thoracic spine degenerative spurring noted. CONCLUSION: 1. Extensive bilateral pneumonias and small pleural effusions, right more than left, as described above. 2. No CT evidence of pulmonary embolism, to the extent assessed with various other findings, including minimal upper abdominal ascites, new since 2 days ago. Please correlate. Thank you for the opportunity to participate in this patient's care.
--- NOTE | 2018-03-23 09:48 | Event Note ---
Date: 03/23/18 Came by to see patient but he was off the floor for testing. Will f/u in AM.
[2018-03-23] MEDS: ZITHROMAX 500 MG in NACL 0.9% 250ML 250 ML IV SCH (10:00)
[2018-03-23] MEDS: HEPARIN SUB-Q SCH ×2 (10:00→23:03)
[2018-03-23] MEDS: SODIUM CHLORIDE FLUSH SYRINGE 10 ML IV SCH (10:00)
--- NOTE | 2018-03-23 10:40 | Progress Note ---
Assessment and Plan Assessment and plan: Sepsis. Patient meets criteria given the fever, leukocytosis and diagnosis of pneumonia. Continue IV antibiotics and follow cultures. ID consultation. Acute hypoxemic respiratory failure. Cont O2 to maintain sats>92%. BiPap as clinically indicated. Pulmonary consultation pending. CTA negative for PE Bilateral pneumonia. Patient was admitted with IV Rocephin and Zithromax. Zosyn added yesterday. ID consultation pending. Acute renal failure. Patient was admitted with a creatinine greater than 6. We do not have a baseline creatinine to compare. This most likely represents acute on chronic disease. 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 Renal ultrasound is pending Hyponatremia. 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 Continue to follow BMP. DVT prophylaxis. Continue heparin. History Interval history: No new issues overnight. Hospitalist Physical - Constitutional Vitals: Temp Pulse Resp BP Pulse Ox 97.5 F L 69 18 140/90 96 03/22/18 23:07 03/22/18 23:07 03/22/18 23:07 03/22/18 23:07 03/22/18 23:07 General appearance: Present: mild distress, well-nourished - EENT Eyes: Present: PERRL, EOM intact ENT: hearing intact, clear oral mucosa, dentition normal - Neck Neck: Present: supple, normal ROM - Respiratory Respiratory effort: normal Respiratory: bilateral: CTA - Cardiovascular Rhythm: regular Heart Sounds: Present: S1 & S2. Absent: gallop, rub - Extremities Extremities: no ischemia, No edema, Full ROM - Abdominal General gastrointestinal: soft, non-tender, non-distended, normal bowel sounds - Integumentary Integumentary: Present: clear, warm, dry - Neurologic Neurologic: CNII-XII intact, moves all extremities Results - Labs CBC & Chem 7: 03/22/18 06:54 03/22/18 06:54 Labs: Laboratory Last Values WBC 16.9 K/mm3 (4.5-11.0) H 03/22/18 06:54 RBC 3.85 M/mm3 (3.65-5.03) 03/22/18 06:54 Hgb 12.4 gm/dl (11.8-15.2) 03/22/18 06:54 Hct 36.6 % (35.5-45.6) 03/22/18 06:54 MCV 95 fl (84-94) H 03/22/18 06:54 MCH 32 pg (28-32) 03/22/18 06:54 MCHC 34 % (32-34) 03/22/18 06:54 RDW 15.8 % (13.2-15.2) H 03/22/18 06:54 Plt Count 144 K/mm3 (140-440) 03/22/18 06:54 Add Manual Diff Complete 03/22/18 06:54 Total Counted 100 03/22/18 06:54 Seg Neuts % (Manual) 94.0 % (40.0-70.0) H 03/22/18 06:54 Band Neutrophils % 0 % 03/22/18 06:54 Lymphocytes % (Manual) 4.0 % (13.4-35.0) L 03/22/18 06:54 Reactive Lymphs % (Man) 0 % 03/22/18 06:54 Monocytes % (Manual) 2.0 % (0.0-7.3) 03/22/18 06:54 Eosinophils % (Manual) 0 % (0.0-4.3) 03/22/18 06:54 Basophils % (Manual) 0 % (0.0-1.8) 03/22/18 06:54 Metamyelocytes % 0 % 03/22/18 06:54 Myelocytes % 0 % 03/22/18 06:54 Promyelocytes % 0 % 03/22/18 06:54 Blast Cells % 0 % 03/22/18 06:54 Nucleated RBC % Not Reportable 03/22/18 06:54 Seg Neutrophils # Man 15.9 K/mm3 (1.8-7.7) H 03/22/18 06:54 Band Neutrophils # 0.0 K/mm3 03/22/18 06:54 Lymphocytes # (Manual) 0.7 K/mm3 (1.2-5.4) L 03/22/18 06:54 Abs React Lymphs (Man) 0.0 K/mm3 03/22/18 06:54 Monocytes # (Manual) 0.3 K/mm3 (0.0-0.8) 03/22/18 06:54 Eosinophils # (Manual) 0.0 K/mm3 (0.0-0.4) 03/22/18 06:54 Basophils # (Manual) 0.0 K/mm3 (0.0-0.1) 03/22/18 06:54 Metamyelocytes # 0.0 K/mm3 03/22/18 06:54 Myelocytes # 0.0 K/mm3 03/22/18 06:54 Promyelocytes # 0.0 K/mm3 03/22/18 06:54 Blast Cells # 0.0 K/mm3 03/22/18 06:54 WBC Morphology Not Reportable 03/22/18 06:54 Hypersegmented Neuts Not Reportable 03/22/18 06:54 Hyposegmented Neuts Not Reportable 03/22/18 06:54 Hypogranular Neuts Not Reportable 03/22/18 06:54 Smudge Cells Not Reportable 03/22/18 06:54 Toxic Granulation Not Reportable 03/22/18 06:54 Toxic Vacuolation Not Reportable 03/22/18 06:54 Dohle Bodies Not Reportable 03/22/18 06:54 Pelger-Huet Anomaly Not Reportable 03/22/18 06:54 [place] Rods Not Reportable 03/22/18 06:54 Platelet Estimate Cons 03/22/18 06:54 Clumped Platelets Not Reportable 03/22/18 06:54 Plt Clumps, EDTA Not Reportable 03/22/18 06:54 Large Platelets Few 03/22/18 06:54 Giant Platelets Not Reportable 03/22/18 06:54 Platelet Satelliting Not Reportable 03/22/18 06:54 Plt Morphology Comment Not Reportable 03/22/18 06:54 RBC Morphology Not Reportable 03/22/18 06:54 Dimorphic RBCs Not Reportable 03/22/18 06:54 Polychromasia Not Reportable 03/22/18 06:54 Hypochromasia Not Reportable 03/22/18 06:54 Poikilocytosis Not Reportable 03/22/18 06:54 Anisocytosis 1+ 03/22/18 06:54 Microcytosis Not Reportable 03/22/18 06:54 Macrocytosis Not Reportable 03/22/18 06:54 Spherocytes Not Reportable 03/22/18 06:54 Pappenheimer Bodies Not Reportable 03/22/18 06:54 Sickle Cells Not Reportable 03/22/18 06:54 Target Cells Not Reportable 03/22/18 06:54 Tear Drop Cells Not Reportable 03/22/18 06:54 Ovalocytes Not Reportable 03/22/18 06:54 Helmet Cells Not Reportable 03/22/18 06:54 [place] Bodies Not Reportable 03/22/18 06:54 [place] Rings Not Reportable 03/22/18 06:54 [place] Cells Not Reportable 03/22/18 06:54 Bite Cells Not Reportable 03/22/18 06:54 Crenated Cell Not Reportable 03/22/18 06:54 Elliptocytes Not Reportable 03/22/18 06:54 Acanthocytes (Spur) Not Reportable 03/22/18 06:54 Rouleaux Not Reportable 03/22/18 06:54 Hemoglobin C Crystals Not Reportable 03/22/18 06:54 Schistocytes Not Reportable 03/22/18 06:54 Malaria parasites Not Reportable 03/22/18 06:54 [place] Bodies Not Reportable 03/22/18 06:54 Hem Pathologist Commnt No 03/22/18 06:54 PT 13.4 Sec. (12.2-14.9) 03/21/18 14:31 INR 0.97 (0.87-1.13) 03/21/18 14:31 POC ABG pH 7.376 (7.35-7.45) 03/22/18 15:07 POC ABG pCO2 36.9 (35-45) 03/22/18 15:07 POC ABG pO2 62 (80-105) L 03/22/18 15:07 POC ABG HCO3 21.6 03/22/18 15:07 POC ABG Total CO2 23 03/22/18 15:07 POC ABG O2 Sat 91 03/22/18 15:07 POC ABG Base Excess -4 03/22/18 15:07 VBG pH 7.371 (7.320-7.420) 03/21/18 14:25 FiO2 40 % 03/22/18 15:07 Sodium 129 mmol/L (137-145) L 03/22/18 06:54 Potassium 3.5 mmol/L (3.6-5.0) L 03/22/18 06:54 Chloride 89.6 mmol/L (98-107) L 03/22/18 06:54 Carbon Dioxide 22 mmol/L (22-30) 03/22/18 06:54 Anion Gap 21 mmol/L 03/22/18 06:54 BUN 55 mg/dL (9-20) H 03/22/18 06:54 Creatinine 6.8 mg/dL (0.8-1.5) H 03/22/18 06:54 Estimated GFR 10 ml/min 03/22/18 06:54 BUN/Creatinine Ratio 8 % 03/22/18 06:54 Glucose 117 mg/dL (75-100) H 03/22/18 06:54 Hemoglobin A1c 5.8 % (4-6) 03/21/18 14:06 Lactic Acid 1.10 mmol/L (0.7-2.0) 03/21/18 17:11 Uric Acid 7.2 mg/dL (3.5-7.6) 03/22/18 16:21 Calcium 7.9 mg/dL (8.4-10.2) L 03/22/18 06:54 Total Bilirubin 1.90 mg/dL (0.1-1.2) H 03/22/18 06:54 Direct Bilirubin 2.2 mg/dL (0-0.2) H 03/21/18 15:13 Indirect Bilirubin 0.7 mg/dL 03/21/18 15:13 AST 136 units/L (5-40) H 03/22/18 06:54 ALT 142 units/L (7-56) H 03/22/18 06:54 Alkaline Phosphatase 135 units/L (35-129) H 03/22/18 06:54 Troponin T < 0.010 ng/mL (0.00-0.029) 03/21/18 15:17 NT-Pro-B Natriuret Pep 1188 pg/mL (0-900) H 03/21/18 15:17 Total Protein 6.0 g/dL (6.3-8.2) L 03/22/18 06:54 Albumin 2.5 g/dL (3.9-5) L 03/22/18 06:54 Albumin/Globulin Ratio 0.7 % 03/22/18 06:54 Urine Color Yellow (Yellow) 03/21/18 17:52 Urine Turbidity Clear (Clear) 03/21/18 17:52 Urine pH 5.0 (5.0-7.0) 03/21/18 17:52 Ur Specific [place] 1.010 (1.003-1.030) 03/21/18 17:52 Urine Protein 30 mg/dl mg/dL (Negative) 03/21/18 17:52 Urine Glucose (UA) Neg mg/dL (Negative) 03/21/18 17:52 Urine Ketones Neg mg/dL (Negative) 03/21/18 17:52 Urine Blood Mod (Negative) 03/21/18 17:52 Urine Nitrite Neg (Negative) 03/21/18 17:52 Urine Bilirubin Neg (Negative) 03/21/18 17:52 Urine Urobilinogen 4.0 mg/dL (<2.0) 03/21/18 17:52 Ur Leukocyte Esterase Neg (Negative) 03/21/18 17:52 Urine WBC (Auto) 5.0 /HPF (0.0-6.0) 03/21/18 17:52 Urine RBC (Auto) 16.0 /HPF (0.0-6.0) 03/21/18 17:52 U Epithel Cells (Auto) 1.0 /HPF (0-13.0) 03/21/18 17:52 Urine Bacteria (Auto) 1+ /HPF (Negative) 03/21/18 17:52 Amorphous Crystals Few 03/21/18 17:52 Hepatitis A IgM Ab Non-reactive (NonReactive) 03/22/18 16:21 Hep Bs Antigen Non-reactive (Negative) 03/22/18 16:21 Hep B Core IgM Ab Non-reactive (NonReactive) 03/22/18 16:21 Hepatitis C Antibody Non-reactive (NonReactive) 03/22/18 16:21
[2018-03-23] MEDS: ROCEPHIN/NS 1 GM/50 ML 1 GM/50 ML BAG IV SCH (11:47)
--- NOTE | 2018-03-23 13:47 | Ultrasound Report ---
ULTRASOUND RENAL INDICATION: Renal failure. COMPARISON: None similar. FINDINGS: Renal sonography suggests mild increased renal cortical echogenicity. Grossly preserved contours. No hydronephrosis. RIGHT KIDNEY measures 11.1 x 6.1 x 6.2 cm with cortical thickness of 2 cm. LEFT KIDNEY estimated at 9 x 5.2 x 5.8 cm with cortical thickness of 1.7 cm. URINARY BLADDER suboptimally distended and assessed, though grossly unremarkable, in so far seen. CONCLUSION: Mild underlying medical renal disease sonographically without acute renal abnormality. Please correlate. Thank you for the opportunity to participate in this patient's care.
[2018-03-23 14:42] LABS: Calcium 8.5 mg/dL (8.4-10.2)
[2018-03-23 15:27] LABS: Hematocrit 39.4 % (35.5-45.6); Hemoglobin 13.1 gm/dl (11.8-15.2); Mean Corpuscular HGB Conc 33 % (32-34); Mean Corpuscular Hemoglobin 32 pg (28-32); Mean Corpuscular Volume 96 fl (84-94); Platelet Count 215 K/mm3 (140-440); Red Blood Count 4.11 M/mm3 (3.65-5.03); Red Cell Distribution Width 15.9 % (13.2-15.2)
[2018-03-23 16:55] LABS: Basophils % (Manual) 0 % (0.0-1.8); Eosinophils % (Manual) 0 % (0.0-4.3); Total Cells Counted 100
[2018-03-23 16:56] LABS: RBC Morphology Normal
[2018-03-23 22:08] LABS: Creatinine,Urine 87.4 mg/dL (0.1-20.0)
[2018-03-24] MEDS: SODIUM CHLORIDE FLUSH SYRINGE 10 ML IV SCH ×3 (00:56→21:59)
[2018-03-24] MEDS: ZOSYN/NS 2.25 GM/50ML 2.25 GM/50 ML BAG IV SCH (05:44)
[2018-03-24] MEDS: D5NS 1,000 ML IV SCH (05:44)
[2018-03-24 06:27] LABS: Hematocrit 34.7 % (35.5-45.6); Hemoglobin 11.7 gm/dl (11.8-15.2); Mean Corpuscular HGB Conc 34 % (32-34); Mean Corpuscular Hemoglobin 32 pg (28-32); Mean Corpuscular Volume 94 fl (84-94); Platelet Count 240 K/mm3 (140-440)
[2018-03-24 06:53] LABS: Calcium 8.6 mg/dL (8.4-10.2)
[2018-03-24 08:02] LABS: Acanthocytes Few; Anisocytosis 1+; Band Neutrophils # (Manual) 0.2 K/mm3; Basophils % (Manual) 0 % (0.0-1.8); Eosinophils % (Manual) 0 % (0.0-4.3); Poikilocytosis 1+; Target Cells Few; Total Cells Counted 100
[2018-03-24 08:03] LABS: Large Platelets Few; Platelet Estimate Cons
[2018-03-24] MEDS: DUONEB *Not for PRN Use IH SCH ×4 (08:28→19:33)
[2018-03-24] MEDS ORDERED: LEVAQUIN 750MG/150ML 750 MG/150 ML BAG IV SCH (10:00)
--- NOTE | 2018-03-24 10:22 | Progress Note ---
Assessment and Plan Assessment and plan: Sepsis. Patient meets criteria given the fever, leukocytosis and diagnosis of pneumonia. Continue IV antibiotics and follow cultures. ID consultation. Acute hypoxemic respiratory failure. Cont O2 to maintain sats>92%. BiPap as clinically indicated. Pulmonary consultation pending. CTA negative for PE Bilateral pneumonia. Continue antibiotics per ID recommendations. Acute renal failure. Patient was admitted with a creatinine greater than 6. We do not have a baseline creatinine to compare. This most likely represents acute on chronic disease. 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 Renal ultrasound is pending Hyponatremia. Improved. 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 Continue to follow BMP. DVT prophylaxis. Continue heparin. History Interval history: Patient appears much improved today. Hospitalist Physical - Constitutional Vitals: Temp Pulse Resp BP Pulse Ox 97.6 F 73 20 152/85 98 03/23/18 23:49 03/23/18 23:49 03/23/18 23:49 03/23/18 23:49 03/23/18 23:49 General appearance: Present: no acute distress, well-nourished - EENT Eyes: Present: PERRL, EOM intact ENT: hearing intact, clear oral mucosa, dentition normal - Neck Neck: Present: supple, normal ROM - Respiratory Respiratory effort: normal Respiratory: bilateral: CTA - Cardiovascular Rhythm: regular Heart Sounds: Present: S1 & S2. Absent: gallop, rub - Extremities Extremities: no ischemia, No edema, Full ROM - Abdominal General gastrointestinal: soft, non-tender, non-distended, normal bowel sounds - Integumentary Integumentary: Present: clear, warm, dry - Neurologic Neurologic: CNII-XII intact, moves all extremities Results - Labs CBC & Chem 7: 03/24/18 05:54 03/24/18 05:54 Labs: Laboratory Last Values WBC 22.6 K/mm3 (4.5-11.0) H 03/24/18 05:54 RBC 3.70 M/mm3 (3.65-5.03) 03/24/18 05:54 Hgb 11.7 gm/dl (11.8-15.2) L 03/24/18 05:54 Hct 34.7 % (35.5-45.6) L 03/24/18 05:54 MCV 94 fl (84-94) 03/24/18 05:54 MCH 32 pg (28-32) 03/24/18 05:54 MCHC 34 % (32-34) 03/24/18 05:54 RDW 16.0 % (13.2-15.2) H 03/24/18 05:54 Plt Count 240 K/mm3 (140-440) 03/24/18 05:54 Lymph % (Auto) Creel Clerk 03/23/18 14:58 Schuyler % (Auto) Creel Clerk 03/23/18 14:58 Eos % (Auto) Creel Clerk 03/23/18 14:58 Baso % (Auto) Creel Clerk 03/23/18 14:58 Lymph # Creel Clerk 03/23/18 14:58 [place]uyler # Creel Clerk 03/23/18 14:58 Eos # Creel Clerk 03/23/18 14:58 Baso # Creel Clerk 03/23/18 14:58 Add Manual Diff Complete 03/24/18 05:54 Total Counted 100 03/24/18 05:54 Seg Neutrophils % Creel Clerk 03/24/18 05:54 Seg Neuts % (Manual) 96.0 % (40.0-70.0) H 03/24/18 05:54 Band Neutrophils % 1.0 % 03/24/18 05:54 Lymphocytes % (Manual) 2.0 % (13.4-35.0) L 03/24/18 05:54 Reactive Lymphs % (Man) 0 % 03/24/18 05:54 Monocytes % (Manual) 1.0 % (0.0-7.3) 03/24/18 05:54 Eosinophils % (Manual) 0 % (0.0-4.3) 03/24/18 05:54 Basophils % (Manual) 0 % (0.0-1.8) 03/24/18 05:54 Metamyelocytes % 0 % 03/24/18 05:54 Myelocytes % 0 % 03/24/18 05:54 Promyelocytes % 0 % 03/24/18 05:54 Blast Cells % 0 % 03/24/18 05:54 Nucleated RBC % Not Reportable 03/24/18 05:54 Seg Neutrophils # Creel Clerk 03/23/18 14:58 Seg Neutrophils # Man 21.7 K/mm3 (1.8-7.7) H 03/24/18 05:54 Band Neutrophils # 0.2 K/mm3 03/24/18 05:54 Lymphocytes # (Manual) 0.5 K/mm3 (1.2-5.4) L 03/24/18 05:54 Abs React Lymphs (Man) 0.0 K/mm3 03/24/18 05:54 Monocytes # (Manual) 0.2 K/mm3 (0.0-0.8) 03/24/18 05:54 Eosinophils # (Manual) 0.0 K/mm3 (0.0-0.4) 03/24/18 05:54 Basophils # (Manual) 0.0 K/mm3 (0.0-0.1) 03/24/18 05:54 Metamyelocytes # 0.0 K/mm3 03/24/18 05:54 Myelocytes # 0.0 K/mm3 03/24/18 05:54 Promyelocytes # 0.0 K/mm3 03/24/18 05:54 Blast Cells # 0.0 K/mm3 03/24/18 05:54 WBC Morphology Not Reportable 03/24/18 05:54 Hypersegmented Neuts Not Reportable 03/24/18 05:54 Hyposegmented Neuts Not Reportable 03/24/18 05:54 Hypogranular Neuts Not Reportable 03/24/18 05:54 Smudge Cells Not Reportable 03/24/18 05:54 Toxic Granulation Not Reportable 03/24/18 05:54 Toxic Vacuolation Not Reportable 03/24/18 05:54 Dohle Bodies Not Reportable 03/24/18 05:54 Pelger-Huet Anomaly Not Reportable 03/24/18 05:54 [place] Rods Not Reportable 03/24/18 05:54 Platelet Estimate Cons 03/24/18 05:54 Clumped Platelets Not Reportable 03/24/18 05:54 Plt Clumps, EDTA Not Reportable 03/24/18 05:54 Large Platelets Few 03/24/18 05:54 Giant Platelets Not Reportable 03/24/18 05:54 Platelet Satelliting Not Reportable 03/24/18 05:54 Plt Morphology Comment Not Reportable 03/24/18 05:54 RBC Morphology Not Reportable 03/24/18 05:54 Dimorphic RBCs Not Reportable 03/24/18 05:54 Polychromasia Not Reportable 03/24/18 05:54 Hypochromasia Not Reportable 03/24/18 05:54 Poikilocytosis 1+ 03/24/18 05:54 Anisocytosis 1+ 03/24/18 05:54 Microcytosis Not Reportable 03/24/18 05:54 Macrocytosis Not Reportable 03/24/18 05:54 Spherocytes Not Reportable 03/24/18 05:54 Pappenheimer Bodies Not Reportable 03/24/18 05:54 Sickle Cells Not Reportable 03/24/18 05:54 Target Cells Few 03/24/18 05:54 Tear Drop Cells Not Reportable 03/24/18 05:54 Ovalocytes Not Reportable 03/24/18 05:54 Helmet Cells Not Reportable 03/24/18 05:54 [place] Bodies Not Reportable 03/24/18 05:54 [place] Rings Not Reportable 03/24/18 05:54 [place] Cells Not Reportable 03/24/18 05:54 Bite Cells Not Reportable 03/24/18 05:54 Crenated Cell Not Reportable 03/24/18 05:54 Elliptocytes Not Reportable 03/24/18 05:54 Acanthocytes (Spur) Few 03/24/18 05:54 Rouleaux Not Reportable 03/24/18 05:54 Hemoglobin C Crystals Not Reportable 03/24/18 05:54 Schistocytes Not Reportable 03/24/18 05:54 Malaria parasites Not Reportable 03/24/18 05:54 [place] Bodies Not Reportable 03/24/18 05:54 Hem Pathologist Commnt No 03/24/18 05:54 PT 13.4 Sec. (12.2-14.9) 03/21/18 14:31 INR 0.97 (0.87-1.13) 03/21/18 14:31 POC ABG pH 7.376 (7.35-7.45) 03/22/18 15:07 POC ABG pCO2 36.9 (35-45) 03/22/18 15:07 POC ABG pO2 62 (80-105) L 03/22/18 15:07 POC ABG HCO3 21.6 03/22/18 15:07 POC ABG Total CO2 23 03/22/18 15:07 POC ABG O2 Sat 91 03/22/18 15:07 POC ABG Base Excess -4 03/22/18 15:07 VBG pH 7.371 (7.320-7.420) 03/21/18 14:25 FiO2 40 % 03/22/18 15:07 Sodium 136 mmol/L (137-145) L D 03/24/18 05:54 Potassium 4.1 mmol/L (3.6-5.0) 03/24/18 05:54 Chloride 99.1 mmol/L (98-107) 03/24/18 05:54 Carbon Dioxide 19 mmol/L (22-30) L 03/24/18 05:54 Anion Gap 22 mmol/L 03/24/18 05:54 BUN 74 mg/dL (9-20) H 03/24/18 05:54 Creatinine 7.2 mg/dL (0.8-1.5) H 03/24/18 05:54 Estimated GFR 9 ml/min 03/24/18 05:54 BUN/Creatinine Ratio 10 % 03/24/18 05:54 Glucose 136 mg/dL (75-100) H 03/24/18 05:54 Hemoglobin A1c 5.8 % (4-6) 03/21/18 14:06 Lactic Acid 1.10 mmol/L (0.7-2.0) 03/21/18 17:11 Uric Acid 7.2 mg/dL (3.5-7.6) 03/22/18 16:21 Calcium 8.6 mg/dL (8.4-10.2) 03/24/18 05:54 Total Bilirubin 1.90 mg/dL (0.1-1.2) H 03/22/18 06:54 Direct Bilirubin 2.2 mg/dL (0-0.2) H 03/21/18 15:13 Indirect Bilirubin 0.7 mg/dL 03/21/18 15:13 AST 136 units/L (5-40) H 03/22/18 06:54 ALT 142 units/L (7-56) H 03/22/18 06:54 Alkaline Phosphatase 135 units/L (35-129) H 03/22/18 06:54 Troponin T < 0.010 ng/mL (0.00-0.029) 03/21/18 15:17 NT-Pro-B Natriuret Pep 1188 pg/mL (0-900) H 03/21/18 15:17 Total Protein 6.0 g/dL (6.3-8.2) L 03/22/18 06:54 Albumin 2.5 g/dL (3.9-5) L 03/22/18 06:54 Albumin/Globulin Ratio 0.7 % 03/22/18 06:54 Urine Color Yellow (Yellow) 03/21/18 17:52 Urine Turbidity Clear (Clear) 03/21/18 17:52 Urine pH 5.0 (5.0-7.0) 03/21/18 17:52 Ur Specific [place] 1.010 (1.003-1.030) 03/21/18 17:52 Urine Protein 30 mg/dl mg/dL (Negative) 03/21/18 17:52 Urine Glucose (UA) Neg mg/dL (Negative) 03/21/18 17:52 Urine Ketones Neg mg/dL (Negative) 03/21/18 17:52 Urine Blood Mod (Negative) 03/21/18 17:52 Urine Nitrite Neg (Negative) 03/21/18 17:52 Urine Bilirubin Neg (Negative) 03/21/18 17:52 Urine Urobilinogen 4.0 mg/dL (<2.0) 03/21/18 17:52 Ur Leukocyte Esterase Neg (Negative) 03/21/18 17:52 Urine WBC (Auto) 5.0 /HPF (0.0-6.0) 03/21/18 17:52 Urine RBC (Auto) 16.0 /HPF (0.0-6.0) 03/21/18 17:52 U Epithel Cells (Auto) 1.0 /HPF (0-13.0) 03/21/18 17:52 Urine Bacteria (Auto) 1+ /HPF (Negative) 03/21/18 17:52 Amorphous Crystals Few 03/21/18 17:52 Urine Creatinine 87.4 mg/dL (0.1-20.0) H 03/23/18 21:15 Urine Sodium 53 mmol/L 03/23/18 21:15 Urine Total Protein 21 mg/dL (5-11.8) H 03/23/18 21:15 Hepatitis A IgM Ab Non-reactive (NonReactive) 03/22/18 16:21 Hep Bs Antigen Non-reactive (Negative) 03/22/18 16:21 Hep B Core IgM Ab Non-reactive (NonReactive) 03/22/18 16:21 Hepatitis C Antibody Non-reactive (NonReactive) 03/22/18 16:21
[2018-03-24] MEDS: HEPARIN SUB-Q SCH ×2 (11:09→21:59)
[2018-03-24] MEDS: LEVAQUIN 750MG/150ML 750 MG/150 ML BAG IV SCH (11:10)
--- NOTE | 2018-03-24 11:43 | Consultation ---
History of Present Illness - Reason for Consult Consult date: 03/24/18 bilateral pneumonia/sepsis Requesting physician: COLLEEN FRANCO - History of Present Illness 58 y/o male with no significant past medical history except for obesity; admitted on 03/16/2018 due to fever at 101.8, anorexia, malaise and cough of 4 days duration. Cough productive of mucoid to yellow sputum. No chills. Some shortness of breath present. He is a heavy smoker for 40 years. No chest pain. Patient smokes a word to half a pack a day. In the ED, initial temperature was 103, heart rate 108, respiration 20, O2 sat 88, blood pressure 154/97. Initial white count 17. Hemoglobin 14. Platelets 142. Sodium 127. creatinine 6.4. AST 234, ALT 195. CTA show extensive bilateral pneumonia right more than left. Kidney ultrasound was unremarkable. CT of the abdomen shows sina pneumonia. Microbiology: Blood cultures: 03/21 ngtd Urine cultures: 03/21 10-100K mixed Other: Current Antimicrobials: Zosyn Ceftriaxone Vancomycin Previous Antimicrobials: Past History Past Medical History: No medical history Past Surgical History: No surgical history Social history: lives with family, smoking, full code Family history: hypertension Medications and Allergies Allergies Allergy/AdvReac Type Severity Reaction Status Date / Time No Known Allergies Allergy Unverified 03/21/18 13:52 Home Medications Medication Instructions Recorded Confirmed Last Taken Type No Known Home Medications [No 03/21/18 03/21/18 Unknown History Reported Home Medications] Active Meds: Active Medications Acetaminophen (Tylenol) 650 mg PO Q4H PRN PRN Reason: Pain MILD(1-3)/Fever >100.5/KIRK Last Admin: 03/21/18 23:23 Dose: 650 mg Albuterol/Ipratropium (Duoneb *Not For Prn Use*) 1 ampul IH QIDRT [facility] Last Admin: 03/24/18 08:28 Dose: 1 ampul Heparin Sodium (Porcine) (Heparin) 5,000 unit SUB-Q Q12HR [facility] Last Admin: 03/24/18 11:09 Dose: 5,000 unit Dextrose/Sodium Chloride (D5ns) 1,000 mls @ 100 mls/hr IV DIRECT [facility] Last Admin: 03/24/18 05:44 Dose: 100 mls/hr Ceftriaxone Sodium (Rocephin/Ns 2 Gm/100 Ml) 2 gm in 100 mls @ 200 mls/hr IV Q24HR [facility]; Protocol Levofloxacin/Dextrose (Levaquin 750mg/150ml) 750 mg in 150 mls @ 100 mls/hr IV Q48HR ALF; Protocol Last Admin: 03/24/18 11:10 Dose: 100 mls/hr Methylprednisolone Sodium Succinate (Solu-Medrol) 40 mg IV Q8HR [facility] Last Admin: 03/24/18 05:44 Dose: 40 mg Morphine Sulfate (Morphine) 2 mg IV Q4H PRN PRN Reason: Pain, Moderate (4-6) Ondansetron HCl (Zofran) 4 mg IV Q8H PRN PRN Reason: Nausea And Vomiting Oxycodone/Acetaminophen (Percocet 5/325) 1 tab PO Q6H PRN PRN Reason: Pain, Moderate (4-6) Sodium Chloride (Sodium Chloride Flush Syringe 10 Ml) 10 ml IV BID [facility] Last Admin: 03/24/18 11:10 Dose: 10 ml Sodium Chloride (Sodium Chloride Flush Syringe 10 Ml) 10 ml IV PRN PRN PRN Reason: LINE FLUSH Review of Systems All systems: negative (as per HPI) Physical Examination - Physical Exam Narrative exam: General appearance: Alert in NAD, conversant Eyes: anicteric sclerae, moist conjunctivae; no lid-lag; PERRLA HENT: Atraumatic; oropharynx clear with moist mucous membranes and no mucosal ulcerations/no oral thrush; normal hard and soft palate. Normal external ears. Neck: Trachea midline; supple, no thyromegaly or lymphadenopathy Lungs: sina crackles CV: RRR, no murmurs Abdomen: Soft, non-tender; no masses or hepatosplenomegaly Extremities: No peripheral edema or extremity lymphadenopathy Skin: Normal temperature, turgor and texture; no rash, ulcers or subcutaneous nodules Psych: Appropriate affect, alert and oriented to person, place and time. Neuro: alert and oriented x 3. Moving all extermities Lines: No CVL / PICC - Constitutional Vitals: Vital Signs Temp Pulse Resp BP Pulse Ox 97.6 F 72 20 152/85 93 03/23/18 23:49 03/24/18 08:28 03/24/18 08:28 03/23/18 23:49 03/24/18 08:28 Temperature -Last 24 Hours Temperature 97.6 F Temperature 96.5 F Temperature 97.4 F Results - Labs CBC & Chem 7: 03/24/18 05:54 03/24/18 05:54 Labs: Abnormal lab results 03/23/18 03/23/18 03/23/18 Range/Units 13:47 14:58 21:15 WBC 24.0 H (4.5-11.0) K/mm3 Hgb (11.8-15.2) gm/dl Hct (35.5-45.6) % MCV 96 H (84-94) fl RDW 15.9 H (13.2-15.2) % Seg Neuts % (Manual) 94.0 H (40.0-70.0) % Lymphocytes % (Manual) 4.0 L (13.4-35.0) % Seg Neutrophils # Man 22.6 H (1.8-7.7) K/mm3 Lymphocytes # (Manual) 1.0 L (1.2-5.4) K/mm3 Sodium 128 L (137-145) mmol/L Chloride 92.9 L (98-107) mmol/L Carbon Dioxide 18 L (22-30) mmol/L BUN 67 H (9-20) mg/dL Creatinine 6.8 H (0.8-1.5) mg/dL Glucose 183 H (75-100) mg/dL Urine Creatinine 87.4 H (0.1-20.0) mg/dL Urine Total Protein 21 H (5-11.8) mg/dL 03/24/18 03/24/18 Range/Units 05:54 05:54 WBC 22.6 H (4.5-11.0) K/mm3 Hgb 11.7 L (11.8-15.2) gm/dl Hct 34.7 L (35.5-45.6) % MCV (84-94) fl RDW 16.0 H (13.2-15.2) % Seg Neuts % (Manual) 96.0 H (40.0-70.0) % Lymphocytes % (Manual) 2.0 L (13.4-35.0) % Seg Neutrophils # Man 21.7 H (1.8-7.7) K/mm3 Lymphocytes # (Manual) 0.5 L (1.2-5.4) K/mm3 Sodium 136 L D (137-145) mmol/L Chloride (98-107) mmol/L Carbon Dioxide 19 L (22-30) mmol/L BUN 74 H (9-20) mg/dL Creatinine 7.2 H (0.8-1.5) mg/dL Glucose 136 H (75-100) mg/dL Urine Creatinine (0.1-20.0) mg/dL Urine Total Protein (5-11.8) mg/dL Assessment and Plan Assessment: 1) Sepsis: Present on admission, manifested by fever, tachycardia, leukocytosis. Etiology most likely bilateral pneumonia. 2) Bilateral pneumonia/CAP: DDx. Strep, Legionaires -CTA show extensive bilateral pneumonia right more than left 3) Acute respiratory failure 4) Smoking abuse 5) Elevated LFTs ? viral hepatitis panel neg 6) OSIEL - Kidney ultrasound was unremarkable. Plan: -follow-up blood cultures -obtain respiratory cultures -check influenza antigen PCR in nasopharinx -check Legionella urine antigen, Streptococcus pneumoniae urine antigen, Mycoplasma serology, Chlamydia pneumophila serology -check CRP, URIEL with reflex, C3, C4, ANCA, HIV -stop zosyn -increase ceftriaxone 2 g IV qday -add levaquin -close monitoring I am rounding this weekend Thank you for your consultation, will follow up with you. Cassia Ridley MD Infectious Diseases Specialist [facility] M [phone] O [phone]
--- NOTE | 2018-03-24 12:46 | Progress Note ---
Subjective Interval history: Patient was seen today for follow-up on multiple renal related issues No complaints of any chest pain pressure or shortness of breath or any voiding problems he appears to be feeling better Urinated 10-15 times yesterday but not documented Since morning about 500 cc today Events of this hospitalization noted Interdisciplinary notes were also reviewed Past medical history: Reviewed Family history: Reviewed Social history: Reviewed Vitals: Reviewed HEENT: Oral mucosa dry Neck: Supple no thyromegaly no JVD Chest: bilateral basilar crackles Heart: Regular rate and rhythm S1-S2 heard no S3-S4 Abdomen: Soft nontender dry skin and no organomegaly Extremity: Less than 1+ edema dry skin no petechial rash Musculoskeletal: No joint effusion noted Assessment and plan: Renal failure severe creatinine worse but patient's urine output has markedly improved, no emergent indication for renal replacement therapy today will need to follow, electrolytes appears to be stabilizing sodium better potassium stable Discussed at length with patient as well as his about the nature and severity of renal failure: The act surprised which is very bothersome despite counseling and education that he has severe renal failure patient has never been involved in his health Status post IV contrast March 23, 2018 patient has bilateral pneumonia effusion no evidence of pulmonary embolism, contrast related renal injury can compromise his recovery, we'll still continue to monitor He has received enough education and counseling regarding renal failure possibilities pending lab etc. Blood pressure is satisfactory heart rate stable no fever Leukocytosis? Stress response, dehydration, infection, steroid despite request patient's urine output has not been measured well in fact ever since this morning he has made about 500 cc of urine which needs to be documented, per patient he has urinated at least 10-15 times yesterday Strict I intake and output should be obtained Hepatitis profile and HIV negative All related issues were discussed with patient Renal prognosis remains guarded at this time Patient does exhibit good understanding of all the renal related issues We'll continue to follow and make recommendations from renal standpoint For any questions feel free to contact me at [phone] Objective - Vital Signs Vital signs: Vital Signs - 12hr 03/24/18 03/24/18 03/24/18 08:28 11:44 11:55 Pulse Rate [ 72 79 78 Anterior Bilateral Throughout] Respiratory 20 20 20 Rate [Anterior Bilateral Throughout] O2 Sat by Pulse 98 Oximetry - Lab 03/24/18 05:54 03/24/18 05:54 Most recent lab results Calcium 8.6 mg/dL (8.4-10.2) 03/24/18 05:54 Urine Creatinine 87.4 mg/dL (0.1-20.0) H 03/23/18 21:15 Urine Sodium 53 mmol/L 03/23/18 21:15 Urine Total Protein 21 mg/dL (5-11.8) H 03/23/18 21:15
[2018-03-24] MEDS: ROCEPHIN/NS 2 GM/100 ML 2 GM/100 ML BAG IV SCH (13:07)
--- NOTE | 2018-03-24 15:35 | Consultation ---
History of Present Illness Consult date: 03/24/18 Requesting physician: COLLEEN FRANCO Reason for consult: dyspnea History of present illness: 58 yo who has not seen an MD for some time, presents with fairly acute onset SOB , fevers, cough with yellow sputum. He is now coughing up some blood-tinged sputum but SOB has improved since admit. No chest pain. Active Medications Acetaminophen (Tylenol) 650 mg PO Q4H PRN PRN Reason: Pain MILD(1-3)/Fever >100.5/KIRK Last Admin: 03/21/18 23:23 Dose: 650 mg Albuterol/Ipratropium (Duoneb *Not For Prn Use*) 1 ampul IH QIDRT [facility] Last Admin: 03/24/18 11:44 Dose: 1 ampul Heparin Sodium (Porcine) (Heparin) 5,000 unit SUB-Q Q12HR [facility] Last Admin: 03/24/18 11:09 Dose: 5,000 unit Dextrose/Sodium Chloride (D5ns) 1,000 mls @ 100 mls/hr IV DIRECT [facility] Last Admin: 03/24/18 05:44 Dose: 100 mls/hr Ceftriaxone Sodium (Rocephin/Ns 2 Gm/100 Ml) 2 gm in 100 mls @ 200 mls/hr IV Q24HR [facility]; Protocol Last Admin: 03/24/18 13:07 Dose: 200 mls/hr Levofloxacin/Dextrose (Levaquin 750mg/150ml) 750 mg in 150 mls @ 100 mls/hr IV Q48HR [facility]; Protocol Last Admin: 03/24/18 11:10 Dose: 100 mls/hr Methylprednisolone Sodium Succinate (Solu-Medrol) 40 mg IV Q8HR [facility] Last Admin: 03/24/18 05:44 Dose: 40 mg Morphine Sulfate (Morphine) 2 mg IV Q4H PRN PRN Reason: Pain, Moderate (4-6) Ondansetron HCl (Zofran) 4 mg IV Q8H PRN PRN Reason: Nausea And Vomiting Oxycodone/Acetaminophen (Percocet 5/325) 1 tab PO Q6H PRN PRN Reason: Pain, Moderate (4-6) Sodium Chloride (Sodium Chloride Flush Syringe 10 Ml) 10 ml IV BID [facility] Last Admin: 03/24/18 11:10 Dose: 10 ml Sodium Chloride (Sodium Chloride Flush Syringe 10 Ml) 10 ml IV PRN PRN PRN Reason: LINE FLUSH Past History Past Medical History: No medical history Past Surgical History: No surgical history Social history: lives with family, smoking, full code Family history: hypertension Medications and Allergies Allergies Allergy/AdvReac Type Severity Reaction Status Date / Time No Known Allergies Allergy Unverified 03/21/18 13:52 Home Medications Medication Instructions Recorded Confirmed Last Taken Type No Known Home Medications [No 03/21/18 03/21/18 Unknown History Reported Home Medications] Active Meds: Active Medications Acetaminophen (Tylenol) 650 mg PO Q4H PRN PRN Reason: Pain MILD(1-3)/Fever >100.5/KIRK Last Admin: 03/21/18 23:23 Dose: 650 mg Albuterol/Ipratropium (Duoneb *Not For Prn Use*) 1 ampul IH QIDRT [facility] Last Admin: 03/24/18 11:44 Dose: 1 ampul Heparin Sodium (Porcine) (Heparin) 5,000 unit SUB-Q Q12HR [facility] Last Admin: 03/24/18 11:09 Dose: 5,000 unit Dextrose/Sodium Chloride (D5ns) 1,000 mls @ 100 mls/hr IV DIRECT [facility] Last Admin: 03/24/18 05:44 Dose: 100 mls/hr Ceftriaxone Sodium (Rocephin/Ns 2 Gm/100 Ml) 2 gm in 100 mls @ 200 mls/hr IV Q24HR [facility]; Protocol Last Admin: 03/24/18 13:07 Dose: 200 mls/hr Levofloxacin/Dextrose (Levaquin 750mg/150ml) 750 mg in 150 mls @ 100 mls/hr IV Q48HR [facility]; Protocol Last Admin: 03/24/18 11:10 Dose: 100 mls/hr Methylprednisolone Sodium Succinate (Solu-Medrol) 40 mg IV Q8HR [facility] Last Admin: 03/24/18 05:44 Dose: 40 mg Morphine Sulfate (Morphine) 2 mg IV Q4H PRN PRN Reason: Pain, Moderate (4-6) Ondansetron HCl (Zofran) 4 mg IV Q8H PRN PRN Reason: Nausea And Vomiting Oxycodone/Acetaminophen (Percocet 5/325) 1 tab PO Q6H PRN PRN Reason: Pain, Moderate (4-6) Sodium Chloride (Sodium Chloride Flush Syringe 10 Ml) 10 ml IV BID [facility] Last Admin: 03/24/18 11:10 Dose: 10 ml Sodium Chloride (Sodium Chloride Flush Syringe 10 Ml) 10 ml IV PRN PRN PRN Reason: LINE FLUSH Review of Systems All systems: negative Physical Examination Vital signs: Vital Signs Temp Pulse Resp BP Pulse Ox 103 F H 108 H 20 154/97 88 03/21/18 13:52 03/21/18 13:52 03/21/18 13:52 03/21/18 13:52 03/21/18 13:52 General appearance: no acute distress, alert Eyes: non-icteric ENT: oropharynx moist Neck: supple Effort: normal Ascultation: Bilateral: diminished breath sounds (bases), wheezes (very faint expiratory) Cardiovascular: regular rate and rhythm (no mrg) Gastrointestinal: normoactive bowel sounds, soft, non-tender, non-distended Integumentary: normal Extremities: no cyanosis, pink and warm, edema (trace bilateral LE edema) normal mental status, non-focal exam, pupils equal and round, CN II-XII normal mood appropriate, affect normal Results - Laboratory Findings CBC and BMP: 03/24/18 05:54 03/24/18 05:54 ABG POC ABG pH 7.376 (7.35-7.45) 03/22/18 15:07 POC ABG pCO2 36.9 (35-45) 03/22/18 15:07 POC ABG pO2 62 (80-105) L 03/22/18 15:07 POC ABG HCO3 21.6 03/22/18 15:07 POC ABG Total CO2 23 03/22/18 15:07 POC ABG O2 Sat 91 03/22/18 15:07 PT/INR, D-dimer PT 13.4 Sec. (12.2-14.9) 03/21/18 14:31 INR 0.97 (0.87-1.13) 03/21/18 14:31 Abnormal lab findings: Abnormal Labs 03/21/18 03/21/18 03/21/18 14:06 14:06 15:13 WBC 17.1 H Hgb Hct MCV 95 H RDW 15.6 H Seg Neuts % (Manual) 94.0 H Lymphocytes % (Manual) 4.0 L Seg Neutrophils # Man 16.1 H Lymphocytes # (Manual) 0.7 L POC ABG pO2 Sodium 127 L Potassium 3.5 L Chloride 83.6 L Carbon Dioxide BUN 49 H Creatinine 6.4 H Glucose 114 H Calcium Total Bilirubin 2.90 H Direct Bilirubin 2.2 H AST 234 H ALT 195 H Alkaline Phosphatase 148 H C-Reactive Protein NT-Pro-B Natriuret Pep Total Protein Albumin 3.0 L Urine Creatinine Urine Total Protein 03/21/18 03/22/18 03/22/18 15:17 06:54 06:54 WBC 16.9 H Hgb Hct MCV 95 H RDW 15.8 H Seg Neuts % (Manual) 94.0 H Lymphocytes % (Manual) 4.0 L Seg Neutrophils # Man 15.9 H Lymphocytes # (Manual) 0.7 L POC ABG pO2 Sodium 129 L Potassium 3.5 L Chloride 89.6 L Carbon Dioxide BUN 55 H Creatinine 6.8 H Glucose 117 H Calcium 7.9 L Total Bilirubin 1.90 H Direct Bilirubin AST 136 H ALT 142 H Alkaline Phosphatase 135 H C-Reactive Protein NT-Pro-B Natriuret Pep 1188 H Total Protein 6.0 L Albumin 2.5 L Urine Creatinine Urine Total Protein 03/22/18 03/23/18 03/23/18 15:07 13:47 14:58 WBC 24.0 H Hgb Hct MCV 96 H RDW 15.9 H Seg Neuts % (Manual) 94.0 H Lymphocytes % (Manual) 4.0 L Seg Neutrophils # Man 22.6 H Lymphocytes # (Manual) 1.0 L POC ABG pO2 62 L Sodium 128 L Potassium Chloride 92.9 L Carbon Dioxide 18 L BUN 67 H Creatinine 6.8 H Glucose 183 H Calcium Total Bilirubin Direct Bilirubin AST ALT Alkaline Phosphatase C-Reactive Protein NT-Pro-B Natriuret Pep Total Protein Albumin Urine Creatinine Urine Total Protein 03/23/18 03/24/18 03/24/18 21:15 05:54 05:54 WBC 22.6 H Hgb 11.7 L Hct 34.7 L MCV RDW 16.0 H Seg Neuts % (Manual) 96.0 H Lymphocytes % (Manual) 2.0 L Seg Neutrophils # Man 21.7 H Lymphocytes # (Manual) 0.5 L POC ABG pO2 Sodium 136 L D Potassium Chloride Carbon Dioxide 19 L BUN 74 H Creatinine 7.2 H Glucose 136 H Calcium Total Bilirubin Direct Bilirubin AST ALT Alkaline Phosphatase C-Reactive Protein NT-Pro-B Natriuret Pep Total Protein Albumin Urine Creatinine 87.4 H Urine Total Protein 21 H 03/24/ 12:08 WBC Hgb Hct MCV RDW Seg Neuts % (Manual) Lymphocytes % (Manual) Seg Neutrophils # Man Lymphocytes # (Manual) POC ABG pO2 Sodium Potassium Chloride Carbon Dioxide BUN Creatinine Glucose Calcium Total Bilirubin Direct Bilirubin AST ALT Alkaline Phosphatase C-Reactive Protein 9.90 H NT-Pro-B Natriuret Pep Total Protein Albumin Urine Creatinine Urine Total Protein - Diagnostic Findings Chest x-ray: report reviewed, image reviewed CT scan - chest: report reviewed, image reviewed Assessment and Plan Imp: 1. CAP 2. Sepsis 3. Acute respiratory failure, hypoxia 4. OSIEL +/- CKD 5. Chronic nicotine dependence, cigarettes Rec: 1. Agree with current ABX, empiric steroids in case there is some component of underlying COPD, bronchodilators 2. F/u cultures, URIEL, ANCAs, complements 3. Stop smoking 4. Check Echo 5. Outpatient PFTs 6. F/u chest imaging to complete resolution of infiltrates 7. Further plans pending clinical course Plan of care reviewed w/ patient/family, they understand/agree Thanks kindly for the consult. Will follow closely.
[2018-03-25 07:00] LABS: Hematocrit 33.4 % (35.5-45.6); Hemoglobin 11.2 gm/dl (11.8-15.2); Mean Corpuscular HGB Conc 34 % (32-34); Mean Corpuscular Hemoglobin 32 pg (28-32); Mean Corpuscular Volume 94 fl (84-94); Platelet Count 297 K/mm3 (140-440); Red Blood Count 3.56 M/mm3 (3.65-5.03); Red Cell Distribution Width 16.1 % (13.2-15.2)
[2018-03-25] MEDS: D5NS 1,000 ML IV SCH ×2 (07:03→18:04)
[2018-03-25 07:06] LABS: Calcium 8.8 mg/dL (8.4-10.2)
[2018-03-25] MEDS: DUONEB *Not for PRN Use IH SCH ×4 (07:36→19:58)
[2018-03-25 09:22] LABS: Anisocytosis 1+; Band Neutrophils # (Manual) 1.8 K/mm3; Basophils % (Manual) 0 % (0.0-1.8); Eosinophils % (Manual) 0 % (0.0-4.3); Poikilocytosis Rare; Total Cells Counted 100
[2018-03-25 09:23] LABS: Large Platelets Few
[2018-03-25] MEDS: ROCEPHIN/NS 2 GM/100 ML 2 GM/100 ML BAG IV SCH (10:00)
[2018-03-25] MEDS: SODIUM CHLORIDE FLUSH SYRINGE 10 ML IV SCH ×2 (10:00→23:39)
[2018-03-25] MEDS: HEPARIN SUB-Q SCH ×2 (11:01→23:38)
--- NOTE | 2018-03-25 11:19 | Progress Note ---
Assessment and Plan Assessment and plan: Sepsis. Patient meets criteria given the fever, leukocytosis and diagnosis of pneumonia. Continue IV antibiotics and follow cultures. ID following. Acute hypoxemic respiratory failure. BiPap as clinically indicated. CTA negative for PE. Check echocardiogram. The patient will need outpatient PFTs. The patient has been started on empiric steroids. Pulmonary following Bilateral pneumonia. Continue antibiotics per ID recommendations. Acute renal failure. Patient was admitted with a creatinine greater than 6. We do not have a baseline creatinine to compare. This most likely represents acute on chronic disease. Continue to follow closely and patient may need BILLPOSTER if no significant improvement. Renal ultrasound is negative for obstruction. Follow-up URIEL, ANCA and complement Hyponatremia. Improved. 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 Continue to follow BMP. DVT prophylaxis. Continue heparin. History Interval history: No new issues overnight. Hospitalist Physical - Constitutional Vitals: Temp Pulse Resp BP Pulse Ox 97.4 F L 85 18 167/85 96 03/25/18 05:40 03/25/18 07:43 03/25/18 07:43 03/25/18 05:40 03/25/18 07:38 General appearance: Present: no acute distress, well-nourished - EENT Eyes: Present: PERRL, EOM intact ENT: hearing intact, clear oral mucosa, dentition normal - Neck Neck: Present: supple, normal ROM - Respiratory Respiratory effort: normal Respiratory: bilateral: diminished, rhonchi - Cardiovascular Rhythm: regular Heart Sounds: Present: S1 & S2. Absent: gallop, rub - Extremities Extremities: no ischemia, No edema, Full ROM - Abdominal General gastrointestinal: soft, non-tender, non-distended, normal bowel sounds - Integumentary Integumentary: Present: clear, warm, dry - Neurologic Neurologic: CNII-XII intact, moves all extremities Results - Labs CBC & Chem 7: 03/25/18 05:59 03/25/18 05:59 Labs: Laboratory Last Values WBC 19.7 K/mm3 (4.5-11.0) H 03/25/18 05:59 RBC 3.56 M/mm3 (3.65-5.03) L 03/25/18 05:59 Hgb 11.2 gm/dl (11.8-15.2) L 03/25/18 05:59 Hct 33.4 % (35.5-45.6) L 03/25/18 05:59 MCV 94 fl (84-94) 03/25/18 05:59 MCH 32 pg (28-32) 03/25/18 05:59 MCHC 34 % (32-34) 03/25/18 05:59 RDW 16.1 % (13.2-15.2) H 03/25/18 05:59 Plt Count 297 K/mm3 (140-440) 03/25/18 05:59 Lymph % (Auto) [employer] 03/23/18 14:58 [place] % (Auto) [employer] 03/23/18 14:58 Eos % (Auto) [employer] 03/23/18 14:58 Baso % (Auto) [employer] 03/23/18 14:58 Lymph # [employer] 03/23/18 14:58 [place] # [employer] 03/23/18 14:58 Eos # [employer] 03/23/18 14:58 Baso # [employer] 03/23/18 14:58 Add Manual Diff Complete 03/25/18 05:59 Total Counted 100 03/25/18 05:59 Seg Neutrophils % [employer] 03/25/18 05:59 Seg Neuts % (Manual) 78.0 % (40.0-70.0) H 03/25/18 05:59 Band Neutrophils % 9.0 % 03/25/18 05:59 Lymphocytes % (Manual) 9.0 % (13.4-35.0) L 03/25/18 05:59 Reactive Lymphs % (Man) 0 % 03/25/18 05:59 Monocytes % (Manual) 4.0 % (0.0-7.3) 03/25/18 05:59 Eosinophils % (Manual) 0 % (0.0-4.3) 03/25/18 05:59 Basophils % (Manual) 0 % (0.0-1.8) 03/25/18 05:59 Metamyelocytes % 0 % 03/25/18 05:59 Myelocytes % 0 % 03/25/18 05:59 Promyelocytes % 0 % 03/25/18 05:59 Blast Cells % 0 % 03/25/18 05:59 Nucleated RBC % Not Reportable 03/25/18 05:59 Seg Neutrophils # [employer] 03/23/18 14:58 Seg Neutrophils # Man 15.4 K/mm3 (1.8-7.7) H 03/25/18 05:59 Band Neutrophils # 1.8 K/mm3 03/25/18 05:59 Lymphocytes # (Manual) 1.8 K/mm3 (1.2-5.4) 03/25/18 05:59 Abs React Lymphs (Man) 0.0 K/mm3 03/25/18 05:59 Monocytes # (Manual) 0.8 K/mm3 (0.0-0.8) 03/25/18 05:59 Eosinophils # (Manual) 0.0 K/mm3 (0.0-0.4) 03/25/18 05:59 Basophils # (Manual) 0.0 K/mm3 (0.0-0.1) 03/25/18 05:59 Metamyelocytes # 0.0 K/mm3 03/25/18 05:59 Myelocytes # 0.0 K/mm3 03/25/18 05:59 Promyelocytes # 0.0 K/mm3 03/25/18 05:59 Blast Cells # 0.0 K/mm3 03/25/18 05:59 WBC Morphology Not Reportable 03/25/18 05:59 Hypersegmented Neuts Not Reportable 03/25/18 05:59 Hyposegmented Neuts Not Reportable 03/25/18 05:59 Hypogranular Neuts Not Reportable 03/25/18 05:59 Smudge Cells Not Reportable 03/25/18 05:59 Toxic Granulation Not Reportable 03/25/18 05:59 Toxic Vacuolation Not Reportable 03/25/18 05:59 Dohle Bodies Not Reportable 03/25/18 05:59 Pelger-Huet Anomaly Not Reportable 03/25/18 05:59 [place] Rods Not Reportable 03/25/18 05:59 Platelet Estimate Appears normal 03/25/18 05:59 Clumped Platelets Not Reportable 03/25/18 05:59 Plt Clumps, EDTA Not Reportable 03/25/18 05:59 Large Platelets Few 03/25/18 05:59 Giant Platelets Not Reportable 03/25/18 05:59 Platelet Satelliting Not Reportable 03/25/18 05:59 Plt Morphology Comment Not Reportable 03/25/18 05:59 RBC Morphology Not Reportable 03/25/18 05:59 Dimorphic RBCs Not Reportable 03/25/18 05:59 Polychromasia Not Reportable 03/25/18 05:59 Hypochromasia Not Reportable 03/25/18 05:59 Poikilocytosis Rare 03/25/18 05:59 Anisocytosis 1+ 03/25/18 05:59 Microcytosis Not Reportable 03/25/18 05:59 Macrocytosis Not Reportable 03/25/18 05:59 Spherocytes Not Reportable 03/25/18 05:59 Pappenheimer Bodies Not Reportable 03/25/18 05:59 Sickle Cells Not Reportable 03/25/18 05:59 Target Cells Not Reportable 03/25/18 05:59 Tear Drop Cells Not Reportable 03/25/18 05:59 Ovalocytes Not Reportable 03/25/18 05:59 Helmet Cells Not Reportable 03/25/18 05:59 [place] Neck Bodies Not Reportable 03/25/18 05:59 [place] Rings Not Reportable 03/25/18 05:59 [place] Cells Not Reportable 03/25/18 05:59 Bite Cells Not Reportable 03/25/18 05:59 Crenated Cell Not Reportable 03/25/18 05:59 Elliptocytes Not Reportable 03/25/18 05:59 Acanthocytes (Spur) Not Reportable 03/25/18 05:59 Rouleaux Not Reportable 03/25/18 05:59 Hemoglobin C Crystals Not Reportable 03/25/18 05:59 Schistocytes Not Reportable 03/25/18 05:59 Malaria parasites Not Reportable 03/25/18 05:59 Jeovany Bodies Not Reportable 03/25/18 05:59 Hem Pathologist Commnt No 03/25/18 05:59 PT 13.4 Sec. (12.2-14.9) 03/21/18 14:31 INR 0.97 (0.87-1.13) 03/21/18 14:31 POC ABG pH 7.376 (7.35-7.45) 03/22/18 15:07 POC ABG pCO2 36.9 (35-45) 03/22/18 15:07 POC ABG pO2 62 (80-105) L 03/22/18 15:07 POC ABG HCO3 21.6 03/22/18 15:07 POC ABG Total CO2 23 03/22/18 15:07 POC ABG O2 Sat 91 03/22/18 15:07 POC ABG Base Excess -4 03/22/18 15:07 VBG pH 7.371 (7.320-7.420) 03/21/18 14:25 FiO2 40 % 03/22/18 15:07 Sodium 138 mmol/L (137-145) 03/25/18 05:59 Potassium 3.8 mmol/L (3.6-5.0) 03/25/18 05:59 Chloride 100.1 mmol/L (98-107) 03/25/18 05:59 Carbon Dioxide 20 mmol/L (22-30) L 03/25/18 05:59 Anion Gap 22 mmol/L 03/25/18 05:59 BUN 73 mg/dL (9-20) H 03/25/18 05:59 Creatinine 6.7 mg/dL (0.8-1.5) H 03/25/18 05:59 Estimated GFR 10 ml/min 03/25/18 05:59 BUN/Creatinine Ratio 11 % 03/25/18 05:59 Glucose 103 mg/dL (75-100) H 03/25/18 05:59 Hemoglobin A1c 5.8 % (4-6) 03/21/18 14:06 Lactic Acid 1.10 mmol/L (0.7-2.0) 03/21/18 17:11 Uric Acid 7.2 mg/dL (3.5-7.6) 03/22/18 16:21 Calcium 8.8 mg/dL (8.4-10.2) 03/25/18 05:59 Total Bilirubin 1.90 mg/dL (0.1-1.2) H 03/22/18 06:54 Direct Bilirubin 2.2 mg/dL (0-0.2) H 03/21/18 15:13 Indirect Bilirubin 0.7 mg/dL 03/21/18 15:13 AST 136 units/L (5-40) H 03/22/18 06:54 ALT 142 units/L (7-56) H 03/22/18 06:54 Alkaline Phosphatase 135 units/L (35-129) H 03/22/18 06:54 Troponin T < 0.010 ng/mL (0.00-0.029) 03/21/18 15:17 C-Reactive Protein 9.90 mg/dL (0.00-1.30) H 03/24/18 12:08 NT-Pro-B Natriuret Pep 1188 pg/mL (0-900) H 03/21/18 15:17 Total Protein 6.0 g/dL (6.3-8.2) L 03/22/18 06:54 Albumin 2.5 g/dL (3.9-5) L 03/22/18 06:54 Albumin/Globulin Ratio 0.7 % 03/22/18 06:54 Urine Color Yellow (Yellow) 03/21/18 17:52 Urine Turbidity Clear (Clear) 03/21/18 17:52 Urine pH 5.0 (5.0-7.0) 03/21/18 17:52 Ur Specific [place] 1.010 (1.003-1.030) 03/21/18 17:52 Urine Protein 30 mg/dl mg/dL (Negative) 03/21/18 17:52 Urine Glucose (UA) Neg mg/dL (Negative) 03/21/18 17:52 Urine Ketones Neg mg/dL (Negative) 03/21/18 17:52 Urine Blood Mod (Negative) 03/21/18 17:52 Urine Nitrite Neg (Negative) 03/21/18 17:52 Urine Bilirubin Neg (Negative) 03/21/18 17:52 Urine Urobilinogen 4.0 mg/dL (<2.0) 03/21/18 17:52 Ur Leukocyte Esterase Neg (Negative) 03/21/18 17:52 Urine WBC (Auto) 5.0 /HPF (0.0-6.0) 03/21/18 17:52 Urine RBC (Auto) 16.0 /HPF (0.0-6.0) 03/21/18 17:52 U Epithel Cells (Auto) 1.0 /HPF (0-13.0) 03/21/18 17:52 Urine Bacteria (Auto) 1+ /HPF (Negative) 03/21/18 17:52 Amorphous Crystals Few 03/21/18 17:52 Urine Creatinine 87.4 mg/dL (0.1-20.0) H 03/23/18 21:15 Urine Sodium 53 mmol/L 03/23/18 21:15 Urine Total Protein 21 mg/dL (5-11.8) H 03/23/18 21:15 Hepatitis A IgM Ab Non-reactive (NonReactive) 03/22/18 16:21 Hep Bs Antigen Non-reactive (Negative) 03/22/18 16:21 Hep B Core IgM Ab Non-reactive (NonReactive) 03/22/18 16:21 Hepatitis C Antibody Non-reactive (NonReactive) 03/22/18 16:21 HIV 1&2 Antibody Rapid Non react (Non React) 03/24/18 12:08 HIV P24 Antigen Non react (Non React) 03/24/18 12:08
--- NOTE | 2018-03-25 11:37 | Progress Note ---
Assessment and Plan Assessment and Plan Imp: 1. CAP 2. Sepsis 3. Acute respiratory failure, hypoxia 4. OSIEL +/- CKD 5. Chronic nicotine dependence, cigarettes Rec: 1. Agree with current ABX, empiric steroids in case there is some component of underlying COPD, bronchodilators 2. F/u cultures, URIEL, ANCAs, complements 3. Stop smoking 4. Check Echo 5. Outpatient PFTs 6. F/u chest imaging to complete resolution of infiltrates 7. Further plans pending clinical course Subjective Date of service: 03/25/18 Interval history: Patient seems to be doing better. No new complaints. On supplemental oxygen through nasal cannula. Objective Vital Signs - 12hr 03/25/18 03/25/18 03/25/18 00:20 05:40 07:37 Temperature 97.4 F L 97.4 F L Pulse Rate 77 69 Pulse Rate [ 84 Anterior Bilateral Lower Lobe] Respiratory 20 24 Rate Respiratory 18 Rate [Anterior Bilateral Lower Lobe] Blood Pressure 158/85 167/85 O2 Sat by Pulse 99 100 Oximetry 03/25/18 03/25/18 07:38 07:43 Temperature Pulse Rate Pulse Rate [ 85 Anterior Bilateral Lower Lobe] Respiratory Rate Respiratory 18 Rate [Anterior Bilateral Lower Lobe] Blood Pressure O2 Sat by Pulse 96 Oximetry Constitutional: no acute distress, alert, other (obese) Eyes: non-icteric ENT: oropharynx moist Neck: supple Effort: normal Ascultation: Bilateral: diminished breath sounds (bases), rhonchi Cardiovascular: regular rate and rhythm (no mrg) Gastrointestinal: normoactive bowel sounds, soft, non-tender, non-distended Integumentary: normal Extremities: no cyanosis, pink and warm, edema (trace bilateral LE edema) Neurologic: normal mental status, non-focal exam, pupils equal and round, CN II- XII normal Psychiatric: mood appropriate, affect normal CBC and BMP: 03/25/18 05:59 03/25/18 05:59 ABG, PT/INR, D-dimer: ABG POC ABG pH 7.376 (7.35-7.45) 03/22/18 15:07 POC ABG pCO2 36.9 (35-45) 03/22/18 15:07 POC ABG pO2 62 (80-105) L 03/22/18 15:07 POC ABG HCO3 21.6 03/22/18 15:07 POC ABG Total CO2 23 03/22/18 15:07 POC ABG O2 Sat 91 03/22/18 15:07 PT/INR, D-dimer PT 13.4 Sec. (12.2-14.9) 03/21/18 14:31 INR 0.97 (0.87-1.13) 03/21/18 14:31 Abnormal lab findings: Abnormal Labs 03/21/18 03/21/18 03/21/18 14:06 14:06 15:13 WBC 17.1 H RBC Hgb Hct MCV 95 H RDW 15.6 H Seg Neuts % (Manual) 94.0 H Lymphocytes % (Manual) 4.0 L Seg Neutrophils # Man 16.1 H Lymphocytes # (Manual) 0.7 L POC ABG pO2 Sodium 127 L Potassium 3.5 L Chloride 83.6 L Carbon Dioxide BUN 49 H Creatinine 6.4 H Glucose 114 H Calcium Total Bilirubin 2.90 H Direct Bilirubin 2.2 H AST 234 H ALT 195 H Alkaline Phosphatase 148 H C-Reactive Protein NT-Pro-B Natriuret Pep Total Protein Albumin 3.0 L Urine Creatinine Urine Total Protein 03/21/18 03/22/18 03/22/18 15:17 06:54 06:54 WBC 16.9 H RBC Hgb Hct MCV 95 H RDW 15.8 H Seg Neuts % (Manual) 94.0 H Lymphocytes % (Manual) 4.0 L Seg Neutrophils # Man 15.9 H Lymphocytes # (Manual) 0.7 L POC ABG pO2 Sodium 129 L Potassium 3.5 L Chloride 89.6 L Carbon Dioxide BUN 55 H Creatinine 6.8 H Glucose 117 H Calcium 7.9 L Total Bilirubin 1.90 H Direct Bilirubin AST 136 H ALT 142 H Alkaline Phosphatase 135 H C-Reactive Protein NT-Pro-B Natriuret Pep 1188 H Total Protein 6.0 L Albumin 2.5 L Urine Creatinine Urine Total Protein 03/22/18 03/23/18 03/23/18 15:07 13:47 14:58 WBC 24.0 H RBC Hgb Hct MCV 96 H RDW 15.9 H Seg Neuts % (Manual) 94.0 H Lymphocytes % (Manual) 4.0 L Seg Neutrophils # Man 22.6 H Lymphocytes # (Manual) 1.0 L POC ABG pO2 62 L Sodium 128 L Potassium Chloride 92.9 L Carbon Dioxide 18 L BUN 67 H Creatinine 6.8 H Glucose 183 H Calcium Total Bilirubin Direct Bilirubin AST ALT Alkaline Phosphatase C-Reactive Protein NT-Pro-B Natriuret Pep Total Protein Albumin Urine Creatinine Urine Total Protein 03/23/18 03/24/18 03/24/18 21:15 05:54 05:54 WBC 22.6 H RBC Hgb 11.7 L Hct 34.7 L MCV RDW 16.0 H Seg Neuts % (Manual) 96.0 H Lymphocytes % (Manual) 2.0 L Seg Neutrophils # Man 21.7 H Lymphocytes # (Manual) 0.5 L POC ABG pO2 Sodium 136 L D Potassium Chloride Carbon Dioxide 19 L BUN 74 H Creatinine 7.2 H Glucose 136 H Calcium Total Bilirubin Direct Bilirubin AST ALT Alkaline Phosphatase C-Reactive Protein NT-Pro-B Natriuret Pep Total Protein Albumin Urine Creatinine 87.4 H Urine Total Protein 21 H 03/24/18 03/25/18 03/25/18 12:08 05:59 05:59 WBC 19.7 H RBC 3.56 L Hgb 11.2 L Hct 33.4 L MCV RDW 16.1 H Seg Neuts % (Manual) 78.0 H Lymphocytes % (Manual) 9.0 L Seg Neutrophils # Man 15.4 H Lymphocytes # (Manual) POC ABG pO2 Sodium Potassium Chloride Carbon Dioxide 20 L BUN 73 H Creatinine 6.7 H Glucose 103 H Calcium Total Bilirubin Direct Bilirubin AST ALT Alkaline Phosphatase C-Reactive Protein 9.90 H NT-Pro-B Natriuret Pep Total Protein Albumin Urine Creatinine Urine Total Protein CT scan - chest: image reviewed (extensive bilateral infiltrates)
--- NOTE | 2018-03-25 13:33 | Progress Note ---
Assessment and Plan Assessment: 1) Sepsis: fever resolved, leukocytosis improving. Etiology most likely bilateral pneumonia. 2) Bilateral pneumonia/CAP: DDx. Strep, Legionnaires -CTA show extensive bilateral pneumonia right more than left -HIV neg 3) Acute respiratory failure 4) Smoking abuse 5) Elevated LFTs ? viral hepatitis panel neg 6) OSIEL - Kidney ultrasound was unremarkable. Plan: -obtain respiratory cultures -check influenza antigen PCR in nasopharinx - pending -check Legionella urine antigen, Streptococcus pneumoniae urine antigen, Mycoplasma serology, Chlamydia pneumophila serology - pending -check CRP, URIEL with reflex, C3, C4, ANCA - pending -continue ceftriaxone 2 g IV qday and levaquin -close monitoring I am rounding on 03/27 Thank you for your consultation, will follow up with you. Cassia Ridley MD Infectious Diseases Specialist [facility] [phone] Subjective Date of service: 03/25/18 Principal diagnosis: pneumonia Interval history: Feels better, on [place] O2, no fever x 48h Microbiology: Blood cultures: 03/21 ngtd Urine cultures: 03/21 10-100K mixed Other: Current Antimicrobials: Zosyn Ceftriaxone Vancomycin Objective - Exam Narrative Exam: General appearance: Alert in NAD, conversant on NC O2 Eyes: anicteric sclerae, moist conjunctivae; no lid-lag; PERRLA HENT: Atraumatic; oropharynx clear with moist mucous membranes and no mucosal ulcerations/no oral thrush; normal hard and soft palate. Normal external ears. Neck: Trachea midline; supple, no thyromegaly or lymphadenopathy Lungs: sina crackles CV: RRR, no murmurs Abdomen: Soft, non-tender; no masses or hepatosplenomegaly Extremities: No peripheral edema or extremity lymphadenopathy Skin: Normal temperature, turgor and texture; no rash, ulcers or subcutaneous nodules Psych: Appropriate affect, alert and oriented to person, place and time. Neuro: alert and oriented x 3. Moving all extermities Lines: No CVL / PICC - Constitutional Vitals: Vital Signs Temp Pulse Resp BP Pulse Ox 98.0 F 85 18 162/88 96 03/25/18 12:22 03/25/18 13:22 03/25/18 13:22 03/25/18 12:22 03/25/18 12:22 Temperature -Last 24 Hours Temperature 98.0 F Temperature 97.4 F Temperature 97.4 F Temperature 97.4 F - Labs CBC & Chem 7: 03/25/18 05:59 03/25/18 05:59 Labs: Abnormal lab results 03/25/18 03/25/18 Range/Units 05:59 05:59 WBC 19.7 H (4.5-11.0) K/mm3 RBC 3.56 L (3.65-5.03) M/mm3 Hgb 11.2 L (11.8-15.2) gm/dl Hct 33.4 L (35.5-45.6) % RDW 16.1 H (13.2-15.2) % Seg Neuts % (Manual) 78.0 H (40.0-70.0) % Lymphocytes % (Manual) 9.0 L (13.4-35.0) % Seg Neutrophils # Man 15.4 H (1.8-7.7) K/mm3 Carbon Dioxide 20 L (22-30) mmol/L BUN 73 H (9-20) mg/dL Creatinine 6.7 H (0.8-1.5) mg/dL Glucose 103 H (75-100) mg/dL
--- NOTE | 2018-03-25 15:18 | Progress Note ---
Subjective Principal diagnosis: pneumonia Interval history: Patient was seen today for follow-up of multiple renal related issues, around 10 :00 in the morning Events of 24 hours noted, nonoliguric Renal function better Vitals labs intake output medications reviewed Medication: Reviewed Social history: Reviewed Family history: Reviewed Physical examination Vitals: Reviewed General: No acute distress HEENT: Oral mucosa moist Neck: Supple no JVD Chest: bilateral basilar crackle Heart: Regular rate and rhythm S1-S2 heard no S3-S4 Abdomen: Soft nontender bowel sounds present Extremities: Edema less than 1+ dry skin peripheral pulses palpable Psych: No agitation and aggression noted Skin: No petechial rash Assessment and plan: Acute kidney injury patient is currently nonoliguric electrolytes stable etiology of renal failure appears to be complicated but there is no emergent indication for renal replacement therapy given that his renal function appears to be stabilizing force last getting better Patiently continue to monitor renal function monitor serologies currently pending Status post-radiocontrast exposure which will contribute to some degree of renal damage as well due to radiocontrast nephropathy but was needed Hypertension: Continue to monitor patient currently does not have any fever Care plan was discussed with patient as well as his at length His urine output is still not being recorded the rate should be Patient does need strict intake and output monitoring Renal care plan was discussed with patient at length all questions were answered labs were explained and simple [place] Prognosis: Guarded at this time We'll continue to follow and make recommendations from renal standpoint Objective - Vital Signs Vital signs: Vital Signs - 12hr 03/25/18 03/25/18 03/25/18 05:40 07:37 07:38 Temperature 97.4 F L Pulse Rate 69 Pulse Rate [ 84 Anterior Bilateral Lower Lobe] Respiratory 24 Rate Respiratory 18 Rate [Anterior Bilateral Lower Lobe] Blood Pressure 167/85 O2 Sat by Pulse 100 96 Oximetry 03/25/18 03/25/18 03/25/18 07:43 12:22 13:17 Temperature 98.0 F Pulse Rate 72 Pulse Rate [ 85 90 Anterior Bilateral Lower Lobe] Respiratory 20 Rate Respiratory 18 18 Rate [Anterior Bilateral Lower Lobe] Blood Pressure 162/88 O2 Sat by Pulse 96 Oximetry 03/25/18 13:22 Temperature Pulse Rate Pulse Rate [ 85 Anterior Bilateral Lower Lobe] Respiratory Rate Respiratory 18 Rate [Anterior Bilateral Lower Lobe] Blood Pressure O2 Sat by Pulse Oximetry - Lab 03/25/18 05:59 03/25/18 05:59 Most recent lab results Calcium 8.8 mg/dL (8.4-10.2) 03/25/18 05:59 Urine Creatinine 87.4 mg/dL (0.1-20.0) H 03/23/18 21:15 Urine Sodium 53 mmol/L 03/23/18 21:15 Urine Total Protein 21 mg/dL (5-11.8) H 03/23/18 21:15
[2018-03-26] MEDS: DUONEB *Not for PRN Use IH SCH ×4 (08:25→20:11)
--- NOTE | 2018-03-26 09:21 | Progress Note ---
Subjective Principal diagnosis: pneumonia Interval history: Patient was seen today for follow-up of multiple renal related issues, he is making good amount of urine No nausea vomiting Events of 24 hours noted Vitals labs intake output medications reviewed Medication: Reviewed Social history: Reviewed Family history: Reviewed Physical examination Vitals: Reviewed General: No acute distress HEENT: Oral mucosa moist Neck: Supple no JVD Chest: Clear to auscultation anteriorly Heart: Regular rate and rhythm S1-S2 heard no S3-S4 Abdomen: Soft nontender bowel sounds present Extremities: Edema less than 1+ dry skin peripheral pulses palpable Psych: No agitation and aggression noted Skin: No petechial rash Assessment and plan: Renal failure in a patient who has never been to physician for last many years admitted with pneumonia, also received CAT scan with contrast IV fortunately patient's urine output has improved creatinine has been trending down pending today's lab Need follow-up on the serologies including anti-GBM antibodies which is currently pending Patient may have underlying chronic kidney disease as he does have some risk factors for this Hyponatremia: Slowly improving Metabolic acidosis: Slowly improving to monitor and follow Pneumonia: Currently an antibiotic being followed by infectious disease Obesity, chronic tobacco abuse, poor lifestyle counseled educated discussed Renal prognosis still remains guarded to poor but there is no immediate need for renal replacement therapy continue to follow renal function Mark eckert and follow-up lab today for renal function monitor intake and output which was done very poorly in the beginning Patient and his were thoroughly educated about the renal related issues Renal care plan was discussed with patient at length all questions were answered labs were explained and simple [place] Prognosis: Guarded at this time We'll continue to follow and make recommendations from renal standpoint Objective - Vital Signs Vital signs: Vital Signs - 12hr 03/25/18 03/25/18 03/26/18 22:00 23:53 00:02 Temperature 98.3 F Pulse Rate 80 85 Pulse Rate [ Anterior Bilateral Throughout] Respiratory 16 18 22 Rate Respiratory Rate [Anterior Bilateral Throughout] Blood Pressure 132/69 O2 Sat by Pulse 92 100 Oximetry 03/26/18 03/26/18 03/26/18 06:03 08:00 08:28 Temperature 97.7 F Pulse Rate 70 Pulse Rate [ 84 Anterior Bilateral Throughout] Respiratory 18 Rate Respiratory 18 Rate [Anterior Bilateral Throughout] Blood Pressure 153/88 O2 Sat by Pulse 95 92 Oximetry 03/26/18 08:51 Temperature Pulse Rate Pulse Rate [ 85 Anterior Bilateral Throughout] Respiratory Rate Respiratory 18 Rate [Anterior Bilateral Throughout] Blood Pressure O2 Sat by Pulse Oximetry - Lab 03/25/18 05:59 03/26/18 11:07 Most recent lab results Calcium 8.8 mg/dL (8.4-10.2) 03/25/18 05:59 Urine Creatinine 87.4 mg/dL (0.1-20.0) H 03/23/18 21:15 Urine Sodium 53 mmol/L 03/23/18 21:15 Urine Total Protein 21 mg/dL (5-11.8) H 03/23/18 21:15
[2018-03-26] MEDS: ROCEPHIN/NS 2 GM/100 ML 2 GM/100 ML BAG IV SCH (10:08)
[2018-03-26] MEDS: HEPARIN SUB-Q SCH ×2 (10:09→21:45)
[2018-03-26] MEDS: SODIUM CHLORIDE FLUSH SYRINGE 10 ML IV SCH ×2 (11:10→21:45)
--- NOTE | 2018-03-26 11:24 | Progress Note ---
Assessment and Plan Assessment and Plan Imp: 1. CAP 2. Sepsis 3. Acute respiratory failure, hypoxia 4. OSIEL +/- CKD 5. Chronic nicotine dependence, cigarettes Rec: 1. Agree with current ABX, empiric steroids in case there is some component of underlying COPD, bronchodilators 2. F/u cultures, URIEL, ANCAs, complements 3. Stop smoking 4. Check Echo 5. Outpatient PFTs 6. F/u chest imaging to complete resolution of infiltrates 7. Further plans pending clinical course 8. Repeat CBC and chest x-ray Subjective Date of service: 03/26/18 Principal diagnosis: pneumonia Interval history: Patient seems to be doing better. No new complaints. On supplemental oxygen through nasal cannula. Objective Vital Signs - 12hr 03/25/18 03/26/18 03/26/18 23:53 00:02 06:03 Temperature 98.3 F 97.7 F Pulse Rate 80 85 70 Pulse Rate [ Anterior Bilateral Throughout] Respiratory 18 22 18 Rate Respiratory Rate [Anterior Bilateral Throughout] Blood Pressure 132/69 153/88 O2 Sat by Pulse 92 100 95 Oximetry 03/26/18 03/26/18 03/26/18 08:00 08:28 08:51 Temperature Pulse Rate Pulse Rate [ 84 85 Anterior Bilateral Throughout] Respiratory Rate Respiratory 18 18 Rate [Anterior Bilateral Throughout] Blood Pressure O2 Sat by Pulse 92 Oximetry Constitutional: no acute distress, alert, other (obese) Eyes: non-icteric ENT: oropharynx moist Neck: supple Effort: normal Ascultation: Bilateral: diminished breath sounds (bases), wheezes (very faint expiratory), rhonchi Cardiovascular: regular rate and rhythm (no mrg) Gastrointestinal: normoactive bowel sounds, soft, non-tender, non-distended Integumentary: normal Extremities: no cyanosis, pink and warm, edema (trace bilateral LE edema) Neurologic: normal mental status, non-focal exam, pupils equal and round, CN II- XII normal Psychiatric: mood appropriate, affect normal CBC and BMP: 03/25/18 05:59 03/25/18 05:59 ABG, PT/INR, D-dimer: ABG POC ABG pH 7.376 (7.35-7.45) 03/22/18 15:07 POC ABG pCO2 36.9 (35-45) 03/22/18 15:07 POC ABG pO2 62 (80-105) L 03/22/18 15:07 POC ABG HCO3 21.6 03/22/18 15:07 POC ABG Total CO2 23 03/22/18 15:07 POC ABG O2 Sat 91 03/22/18 15:07 PT/INR, D-dimer PT 13.4 Sec. (12.2-14.9) 03/21/18 14:31 INR 0.97 (0.87-1.13) 03/21/18 14:31 Abnormal lab findings: Abnormal Labs 03/21/18 03/21/18 03/21/18 14:06 14:06 15:13 WBC 17.1 H RBC Hgb Hct MCV 95 H RDW 15.6 H Seg Neuts % (Manual) 94.0 H Lymphocytes % (Manual) 4.0 L Seg Neutrophils # Man 16.1 H Lymphocytes # (Manual) 0.7 L POC ABG pO2 Sodium 127 L Potassium 3.5 L Chloride 83.6 L Carbon Dioxide BUN 49 H Creatinine 6.4 H Glucose 114 H Calcium Total Bilirubin 2.90 H Direct Bilirubin 2.2 H AST 234 H ALT 195 H Alkaline Phosphatase 148 H C-Reactive Protein NT-Pro-B Natriuret Pep Total Protein Albumin 3.0 L Urine Creatinine Urine Total Protein 03/21/18 03/22/18 03/22/18 15:17 06:54 06:54 WBC 16.9 H RBC Hgb Hct MCV 95 H RDW 15.8 H Seg Neuts % (Manual) 94.0 H Lymphocytes % (Manual) 4.0 L Seg Neutrophils # Man 15.9 H Lymphocytes # (Manual) 0.7 L POC ABG pO2 Sodium 129 L Potassium 3.5 L Chloride 89.6 L Carbon Dioxide BUN 55 H Creatinine 6.8 H Glucose 117 H Calcium 7.9 L Total Bilirubin 1.90 H Direct Bilirubin AST 136 H ALT 142 H Alkaline Phosphatase 135 H C-Reactive Protein NT-Pro-B Natriuret Pep 1188 H Total Protein 6.0 L Albumin 2.5 L Urine Creatinine Urine Total Protein 03/22/18 03/23/18 03/23/18 15:07 13:47 14:58 WBC 24.0 H RBC Hgb Hct MCV 96 H RDW 15.9 H Seg Neuts % (Manual) 94.0 H Lymphocytes % (Manual) 4.0 L Seg Neutrophils # Man 22.6 H Lymphocytes # (Manual) 1.0 L POC ABG pO2 62 L Sodium 128 L Potassium Chloride 92.9 L Carbon Dioxide 18 L BUN 67 H Creatinine 6.8 H Glucose 183 H Calcium Total Bilirubin Direct Bilirubin AST ALT Alkaline Phosphatase C-Reactive Protein NT-Pro-B Natriuret Pep Total Protein Albumin Urine Creatinine Urine Total Protein 03/23/18 03/24/18 03/24/18 21:15 05:54 05:54 WBC 22.6 H RBC Hgb 11.7 L Hct 34.7 L MCV RDW 16.0 H Seg Neuts % (Manual) 96.0 H Lymphocytes % (Manual) 2.0 L Seg Neutrophils # Man 21.7 H Lymphocytes # (Manual) 0.5 L POC ABG pO2 Sodium 136 L D Potassium Chloride Carbon Dioxide 19 L BUN 74 H Creatinine 7.2 H Glucose 136 H Calcium Total Bilirubin Direct Bilirubin AST ALT Alkaline Phosphatase C-Reactive Protein NT-Pro-B Natriuret Pep Total Protein Albumin Urine Creatinine 87.4 H Urine Total Protein 21 H 03/24/18 03/25/18 03/25/18 12:08 05:59 05:59 WBC 19.7 H RBC 3.56 L Hgb 11.2 L Hct 33.4 L MCV RDW 16.1 H Seg Neuts % (Manual) 78.0 H Lymphocytes % (Manual) 9.0 L Seg Neutrophils # Man 15.4 H Lymphocytes # (Manual) POC ABG pO2 Sodium Potassium Chloride Carbon Dioxide 20 L BUN 73 H Creatinine 6.7 H Glucose 103 H Calcium Total Bilirubin Direct Bilirubin AST ALT Alkaline Phosphatase C-Reactive Protein 9.90 H NT-Pro-B Natriuret Pep Total Protein Albumin Urine Creatinine Urine Total Protein
--- NOTE | 2018-03-26 11:35 | Progress Note ---
Assessment and Plan Assessment and plan: Sepsis. Patient meets criteria given the fever, leukocytosis and diagnosis of pneumonia. Continue IV antibiotics and follow cultures. ID following. Acute hypoxemic respiratory failure. BiPap as clinically indicated. CTA negative for PE. Check echocardiogram. The patient will need outpatient PFTs. The patient has been started on empiric steroids. Pulmonary following Bilateral pneumonia. Continue antibiotics per ID recommendations. Acute renal failure. Patient was admitted with a creatinine greater than 6. We do not have a baseline creatinine to compare. This most likely represents acute on chronic disease. 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 Renal ultrasound is negative for obstruction. Follow-up URIEL, ANCA and complement Hyponatremia. Improved. 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 Continue to follow BMP. DVT prophylaxis. Continue heparin. History Interval history: No new issues overnight. Hospitalist Physical - Constitutional Vitals: Temp Pulse Resp BP Pulse Ox 97.7 F 85 18 153/88 92 03/26/18 06:03 03/26/18 08:51 03/26/18 08:51 03/26/18 06:03 03/26/18 08:28 General appearance: Present: no acute distress, well-nourished - EENT Eyes: Present: PERRL, EOM intact ENT: hearing intact, clear oral mucosa, dentition normal - Neck Neck: Present: supple, normal ROM - Respiratory Respiratory effort: normal Respiratory: bilateral: diminished, rhonchi - Cardiovascular Rhythm: regular Heart Sounds: Present: S1 & S2. Absent: gallop, rub - Extremities Extremities: no ischemia, No edema, Full ROM - Abdominal General gastrointestinal: soft, non-tender, non-distended, normal bowel sounds - Integumentary Integumentary: Present: clear, warm, dry - Neurologic Neurologic: CNII-XII intact, moves all extremities Results - Labs CBC & Chem 7: 03/25/18 05:59 03/25/18 05:59 Labs: Laboratory Last Values WBC 19.7 K/mm3 (4.5-11.0) H 03/25/18 05:59 RBC 3.56 M/mm3 (3.65-5.03) L 03/25/18 05:59 Hgb 11.2 gm/dl (11.8-15.2) L 03/25/18 05:59 Hct 33.4 % (35.5-45.6) L 03/25/18 05:59 MCV 94 fl (84-94) 03/25/18 05:59 MCH 32 pg (28-32) 03/25/18 05:59 MCHC 34 % (32-34) 03/25/18 05:59 RDW 16.1 % (13.2-15.2) H 03/25/18 05:59 Plt Count 297 K/mm3 (140-440) 03/25/18 05:59 Lymph % (Auto) Web Site Administrator 03/23/18 14:58 [place] % (Auto) Web Site Administrator 03/23/18 14:58 Eos % (Auto) Web Site Administrator 03/23/18 14:58 Baso % (Auto) Web Site Administrator 03/23/18 14:58 Lymph # Web Site Administrator 03/23/18 14:58 [place] # Web Site Administrator 03/23/18 14:58 Eos # Web Site Administrator 03/23/18 14:58 Baso # Web Site Administrator 03/23/18 14:58 Add Manual Diff Complete 03/25/18 05:59 Total Counted 100 03/25/18 05:59 Seg Neutrophils % Web Site Administrator 03/25/18 05:59 Seg Neuts % (Manual) 78.0 % (40.0-70.0) H 03/25/18 05:59 Band Neutrophils % 9.0 % 03/25/18 05:59 Lymphocytes % (Manual) 9.0 % (13.4-35.0) L 03/25/18 05:59 Reactive Lymphs % (Man) 0 % 03/25/18 05:59 Monocytes % (Manual) 4.0 % (0.0-7.3) 03/25/18 05:59 Eosinophils % (Manual) 0 % (0.0-4.3) 03/25/18 05:59 Basophils % (Manual) 0 % (0.0-1.8) 03/25/18 05:59 Metamyelocytes % 0 % 03/25/18 05:59 Myelocytes % 0 % 03/25/18 05:59 Promyelocytes % 0 % 03/25/18 05:59 Blast Cells % 0 % 03/25/18 05:59 Nucleated RBC % Not Reportable 03/25/18 05:59 Seg Neutrophils # Web Site Administrator 03/23/18 14:58 Seg Neutrophils # Man 15.4 K/mm3 (1.8-7.7) H 03/25/18 05:59 Band Neutrophils # 1.8 K/mm3 03/25/18 05:59 Lymphocytes # (Manual) 1.8 K/mm3 (1.2-5.4) 03/25/18 05:59 Abs React Lymphs (Man) 0.0 K/mm3 03/25/18 05:59 Monocytes # (Manual) 0.8 K/mm3 (0.0-0.8) 03/25/18 05:59 Eosinophils # (Manual) 0.0 K/mm3 (0.0-0.4) 03/25/18 05:59 Basophils # (Manual) 0.0 K/mm3 (0.0-0.1) 03/25/18 05:59 Metamyelocytes # 0.0 K/mm3 03/25/18 05:59 Myelocytes # 0.0 K/mm3 03/25/18 05:59 Promyelocytes # 0.0 K/mm3 03/25/18 05:59 Blast Cells # 0.0 K/mm3 03/25/18 05:59 WBC Morphology Not Reportable 03/25/18 05:59 Hypersegmented Neuts Not Reportable 03/25/18 05:59 Hyposegmented Neuts Not Reportable 03/25/18 05:59 Hypogranular Neuts Not Reportable 03/25/18 05:59 Smudge Cells Not Reportable 03/25/18 05:59 Toxic Granulation Not Reportable 03/25/18 05:59 Toxic Vacuolation Not Reportable 03/25/18 05:59 Dohle Bodies Not Reportable 03/25/18 05:59 Pelger-Huet Anomaly Not Reportable 03/25/18 05:59 [place] Rods Not Reportable 03/25/18 05:59 Platelet Estimate Appears normal 03/25/18 05:59 Clumped Platelets Not Reportable 03/25/18 05:59 Plt Clumps, EDTA Not Reportable 03/25/18 05:59 Large Platelets Few 03/25/18 05:59 Giant Platelets Not Reportable 03/25/18 05:59 Platelet Satelliting Not Reportable 03/25/18 05:59 Plt Morphology Comment Not Reportable 03/25/18 05:59 RBC Morphology Not Reportable 03/25/18 05:59 Dimorphic RBCs Not Reportable 03/25/18 05:59 Polychromasia Not Reportable 03/25/18 05:59 Hypochromasia Not Reportable 03/25/18 05:59 Poikilocytosis Rare 03/25/18 05:59 Anisocytosis 1+ 03/25/18 05:59 Microcytosis Not Reportable 03/25/18 05:59 Macrocytosis Not Reportable 03/25/18 05:59 Spherocytes Not Reportable 03/25/18 05:59 Pappenheimer Bodies Not Reportable 03/25/18 05:59 Sickle Cells Not Reportable 03/25/18 05:59 Target Cells Not Reportable 03/25/18 05:59 Tear Drop Cells Not Reportable 03/25/18 05:59 Ovalocytes Not Reportable 03/25/18 05:59 Helmet Cells Not Reportable 03/25/18 05:59 Salmeron-Waelder Bodies Not Reportable 03/25/18 05:59 [place] Rings Not Reportable 03/25/18 05:59 Sandra Cells Not Reportable 03/25/18 05:59 Bite Cells Not Reportable 03/25/18 05:59 Crenated Cell Not Reportable 03/25/18 05:59 Elliptocytes Not Reportable 03/25/18 05:59 Acanthocytes (Spur) Not Reportable 03/25/18 05:59 Rouleaux Not Reportable 03/25/18 05:59 Hemoglobin C Crystals Not Reportable 03/25/18 05:59 Schistocytes Not Reportable 03/25/18 05:59 Malaria parasites Not Reportable 03/25/18 05:59 Jeovany Bodies Not Reportable 03/25/18 05:59 Hem Pathologist Commnt No 03/25/18 05:59 PT 13.4 Sec. (12.2-14.9) 03/21/18 14:31 INR 0.97 (0.87-1.13) 03/21/18 14:31 POC ABG pH 7.376 (7.35-7.45) 03/22/18 15:07 POC ABG pCO2 36.9 (35-45) 03/22/18 15:07 POC ABG pO2 62 (80-105) L 03/22/18 15:07 POC ABG HCO3 21.6 03/22/18 15:07 POC ABG Total CO2 23 03/22/18 15:07 POC ABG O2 Sat 91 03/22/18 15:07 POC ABG Base Excess -4 03/22/18 15:07 VBG pH 7.371 (7.320-7.420) 03/21/18 14:25 FiO2 40 % 03/22/18 15:07 Sodium 138 mmol/L (137-145) 03/25/18 05:59 Potassium 3.8 mmol/L (3.6-5.0) 03/25/18 05:59 Chloride 100.1 mmol/L (98-107) 03/25/18 05:59 Carbon Dioxide 20 mmol/L (22-30) L 03/25/18 05:59 Anion Gap 22 mmol/L 03/25/18 05:59 BUN 73 mg/dL (9-20) H 03/25/18 05:59 Creatinine 6.7 mg/dL (0.8-1.5) H 03/25/18 05:59 Estimated GFR 10 ml/min 03/25/18 05:59 BUN/Creatinine Ratio 11 % 03/25/18 05:59 Glucose 103 mg/dL (75-100) H 03/25/18 05:59 Hemoglobin A1c 5.8 % (4-6) 03/21/18 14:06 Lactic Acid 1.10 mmol/L (0.7-2.0) 03/21/18 17:11 Uric Acid 7.2 mg/dL (3.5-7.6) 03/22/18 16:21 Calcium 8.8 mg/dL (8.4-10.2) 03/25/18 05:59 Total Bilirubin 1.90 mg/dL (0.1-1.2) H 03/22/18 06:54 Direct Bilirubin 2.2 mg/dL (0-0.2) H 03/21/18 15:13 Indirect Bilirubin 0.7 mg/dL 03/21/18 15:13 AST 136 units/L (5-40) H 03/22/18 06:54 ALT 142 units/L (7-56) H 03/22/18 06:54 Alkaline Phosphatase 135 units/L (35-129) H 03/22/18 06:54 Troponin T < 0.010 ng/mL (0.00-0.029) 03/21/18 15:17 C-Reactive Protein 9.90 mg/dL (0.00-1.30) H 03/24/18 12:08 NT-Pro-B Natriuret Pep 1188 pg/mL (0-900) H 03/21/18 15:17 Total Protein 6.0 g/dL (6.3-8.2) L 03/22/18 06:54 Albumin 2.5 g/dL (3.9-5) L 03/22/18 06:54 Albumin/Globulin Ratio 0.7 % 03/22/18 06:54 Urine Color Yellow (Yellow) 03/21/18 17:52 Urine Turbidity Clear (Clear) 03/21/18 17:52 Urine pH 5.0 (5.0-7.0) 03/21/18 17:52 Ur Specific [place] 1.010 (1.003-1.030) 03/21/18 17:52 Urine Protein 30 mg/dl mg/dL (Negative) 03/21/18 17:52 Urine Glucose (UA) Neg mg/dL (Negative) 03/21/18 17:52 Urine Ketones Neg mg/dL (Negative) 03/21/18 17:52 Urine Blood Mod (Negative) 03/21/18 17:52 Urine Nitrite Neg (Negative) 03/21/18 17:52 Urine Bilirubin Neg (Negative) 03/21/18 17:52 Urine Urobilinogen 4.0 mg/dL (<2.0) 03/21/18 17:52 Ur Leukocyte Esterase Neg (Negative) 03/21/18 17:52 Urine WBC (Auto) 5.0 /HPF (0.0-6.0) 03/21/18 17:52 Urine RBC (Auto) 16.0 /HPF (0.0-6.0) 03/21/18 17:52 U Epithel Cells (Auto) 1.0 /HPF (0-13.0) 03/21/18 17:52 Urine Bacteria (Auto) 1+ /HPF (Negative) 03/21/18 17:52 Amorphous Crystals Few 03/21/18 17:52 Urine Creatinine 87.4 mg/dL (0.1-20.0) H 03/23/18 21:15 Urine Sodium 53 mmol/L 03/23/18 21:15 Urine Total Protein 21 mg/dL (5-11.8) H 03/23/18 21:15 Hepatitis A IgM Ab Non-reactive (NonReactive) 03/22/18 16:21 Hep Bs Antigen Non-reactive (Negative) 03/22/18 16:21 Hep B Core IgM Ab Non-reactive (NonReactive) 03/22/18 16:21 Hepatitis C Antibody Non-reactive (NonReactive) 03/22/18 16:21 HIV 1&2 Antibody Rapid Non react (Non React) 03/24/18 12:08 HIV P24 Antigen Non react (Non React) 03/24/18 12:08
[2018-03-26] MEDS ORDERED: LEVAQUIN 750MG/150ML 750 MG/150 ML BAG IV SCH (12:00)
[2018-03-26 12:09] LABS: Calcium 8.8 mg/dL (8.4-10.2)
--- NOTE | 2018-03-26 14:50 | XRay Report ---
FINAL REPORT PROCEDURE: XR CHEST ROUTINE 2V TECHNIQUE: PA and lateral chest radiographs were obtained. CPT 07162 HISTORY: pneumonia COMPARISON: 03/22/2018 FINDINGS: Heart: Prominent cardiac silhouette. Mediastinum/Vessels: Prominent rosemarie may be related to vascular prominence or adenopathy. Lungs/Pleural space: There is linear atelectasis or scarring in the left lung base. On the lateral view, there is infrahilar airspace opacity. No effusion or pneumothorax is seen Bony thorax: No acute osseous abnormality. Other: IMPRESSION: Prominent rosemarie may be related to vascular prominence or adenopathy. Infrahilar airspace opacity, seen best on the lateral view
[2018-03-26] MEDS: D5NS 1,000 ML IV SCH (17:43)
[2018-03-27 00:49] LABS: Hematocrit 34.8 % (35.5-45.6); Hemoglobin 11.6 gm/dl (11.8-15.2); Mean Corpuscular HGB Conc 33 % (32-34); Mean Corpuscular Hemoglobin 32 pg (28-32); Mean Corpuscular Volume 96 fl (84-94); Platelet Count 380 K/mm3 (140-440); Red Blood Count 3.63 M/mm3 (3.65-5.03); Red Cell Distribution Width 16.3 % (13.2-15.2)
[2018-03-27 03:17] LABS: Band Neutrophils # (Manual) 2.3 K/mm3; Basophils % (Manual) 0 % (0.0-1.8); Eosinophils % (Manual) 0 % (0.0-4.3); Total Cells Counted 100
[2018-03-27 03:18] LABS: Anisocytosis 1+; Burr Cells Rare; Hypochromasia 1+
[2018-03-27] MEDS: DUONEB *Not for PRN Use IH SCH ×4 (08:25→19:33)
[2018-03-27] MEDS: HEPARIN SUB-Q SCH ×2 (09:44→21:19)
[2018-03-27] MEDS: ROCEPHIN/NS 2 GM/100 ML 2 GM/100 ML BAG IV SCH (09:48)
[2018-03-27] MEDS: SODIUM CHLORIDE FLUSH SYRINGE 10 ML IV SCH ×2 (09:49→21:18)
--- NOTE | 2018-03-27 10:32 | Progress Note ---
Assessment and Plan Assessment and plan: Sepsis. Patient meets criteria given the fever, leukocytosis and diagnosis of pneumonia. Continue IV antibiotics and follow cultures. ID following. Acute hypoxemic respiratory failure. BiPap as clinically indicated. CTA negative for PE. Echocardiogram revealed normal LV function, EF 55-60%. The patient will need outpatient PFTs. The patient has been started on empiric steroids. Pulmonary following Bilateral pneumonia. Continue antibiotics per ID recommendations. Acute renal failure. Patient was admitted with a creatinine greater than 6. We do not have a baseline creatinine to compare. This most likely represents acute on chronic disease. Continue to follow closely and patient may need TRICK RODEO RIDER if no significant improvement. Renal ultrasound is negative for obstruction. Follow-up URIEL, ANCA and complement Hyponatremia. Improved. 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 Continue to follow BMP. DVT prophylaxis. Continue heparin. History Interval history: No new issues overnight. Hospitalist Physical - Constitutional Vitals: Temp Pulse Resp BP Pulse Ox 98.2 F 87 20 146/79 97 03/26/18 23:20 03/27/18 08:38 03/27/18 08:38 03/26/18 23:20 03/27/18 08:28 General appearance: Present: no acute distress, well-nourished - EENT Eyes: Present: PERRL, EOM intact ENT: hearing intact, clear oral mucosa, dentition normal - Neck Neck: Present: supple, normal ROM - Respiratory Respiratory effort: normal Respiratory: bilateral: diminished - Cardiovascular Rhythm: regular Heart Sounds: Present: S1 & S2. Absent: gallop, rub - Extremities Extremities: no ischemia, No edema, Full ROM - Abdominal General gastrointestinal: soft, non-tender, non-distended, normal bowel sounds - Integumentary Integumentary: Present: clear, warm, dry - Neurologic Neurologic: CNII-XII intact, moves all extremities Results - Labs CBC & Chem 7: 03/27/18 00:21 03/26/18 11:07 Labs: Laboratory Last Values WBC 20.5 K/mm3 (4.5-11.0) H 03/27/18 00:21 RBC 3.63 M/mm3 (3.65-5.03) L 03/27/18 00:21 Hgb 11.6 gm/dl (11.8-15.2) L 03/27/18 00:21 Hct 34.8 % (35.5-45.6) L 03/27/18 00:21 MCV 96 fl (84-94) H 03/27/18 00:21 MCH 32 pg (28-32) 03/27/18 00:21 MCHC 33 % (32-34) 03/27/18 00:21 RDW 16.3 % (13.2-15.2) H 03/27/18 00:21 Plt Count 380 K/mm3 (140-440) 03/27/18 00:21 Lymph % (Auto) Forest[employer]man 03/23/18 14:58 [place] % (Auto) [employer] Patrolman 03/23/18 14:58 Eos % (Auto) [employer] Patrolman 03/23/18 14:58 Baso % (Auto) [employer] Patrolman 03/23/18 14:58 Lymph # [employer] Patrolman 03/23/18 14:58 [place] # Forestry Patrolman 03/23/18 14:58 Eos # Forestry Patrolman 03/23/18 14:58 Baso # Forest[employer] Patrolman 03/23/18 14:58 Add Manual Diff Complete 03/27/18 00:21 Total Counted 100 03/27/18 00:21 Seg Neutrophils % Forest[employer] Patrolman 03/27/18 00:21 Seg Neuts % (Manual) 81.0 % (40.0-70.0) H 03/27/18 00:21 Band Neutrophils % 11.0 % 03/27/18 00:21 Lymphocytes % (Manual) 5.0 % (13.4-35.0) L 03/27/18 00:21 Reactive Lymphs % (Man) 0 % 03/27/18 00:21 Monocytes % (Manual) 3.0 % (0.0-7.3) 03/27/18 00:21 Eosinophils % (Manual) 0 % (0.0-4.3) 03/27/18 00:21 Basophils % (Manual) 0 % (0.0-1.8) 03/27/18 00:21 Metamyelocytes % 0 % 03/27/18 00:21 Myelocytes % 0 % 03/27/18 00:21 Promyelocytes % 0 % 03/27/18 00:21 Blast Cells % 0 % 03/27/18 00:21 Nucleated RBC % Not Reportable 03/27/18 00:21 Seg Neutrophils # Forest[employer] Patrolman 03/23/18 14:58 Seg Neutrophils # Man 16.6 K/mm3 (1.8-7.7) H 03/27/18 00:21 Band Neutrophils # 2.3 K/mm3 03/27/18 00:21 Lymphocytes # (Manual) 1.0 K/mm3 (1.2-5.4) L 03/27/18 00:21 Abs React Lymphs (Man) 0.0 K/mm3 03/27/18 00:21 Monocytes # (Manual) 0.6 K/mm3 (0.0-0.8) 03/27/18 00:21 Eosinophils # (Manual) 0.0 K/mm3 (0.0-0.4) 03/27/18 00:21 Basophils # (Manual) 0.0 K/mm3 (0.0-0.1) 03/27/18 00:21 Metamyelocytes # 0.0 K/mm3 03/27/18 00:21 Myelocytes # 0.0 K/mm3 03/27/18 00:21 Promyelocytes # 0.0 K/mm3 03/27/18 00:21 Blast Cells # 0.0 K/mm3 03/27/18 00:21 WBC Morphology Not Reportable 03/27/18 00:21 Hypersegmented Neuts Not Reportable 03/27/18 00:21 Hyposegmented Neuts Not Reportable 03/27/18 00:21 Hypogranular Neuts Not Reportable 03/27/18 00:21 Smudge Cells Not Reportable 03/27/18 00:21 Toxic Granulation Not Reportable 03/27/18 00:21 Toxic Vacuolation Not Reportable 03/27/18 00:21 Dohle Bodies Not Reportable 03/27/18 00:21 Pelger-Huet Anomaly Not Reportable 03/27/18 00:21 [place] Rods Not Reportable 03/27/18 00:21 Platelet Estimate Appears normal 03/27/18 00:21 Clumped Platelets Not Reportable 03/27/18 00:21 Plt Clumps, EDTA Not Reportable 03/27/18 00:21 Large Platelets Not Reportable 03/27/18 00:21 Giant Platelets Not Reportable 03/27/18 00:21 Platelet Satelliting Not Reportable 03/27/18 00:21 Plt Morphology Comment Not Reportable 03/27/18 00:21 RBC Morphology Not Reportable 03/27/18 00:21 Dimorphic RBCs Not Reportable 03/27/18 00:21 Polychromasia Not Reportable 03/27/18 00:21 Hypochromasia 1+ 03/27/18 00:21 Poikilocytosis Not Reportable 03/27/18 00:21 Anisocytosis 1+ 03/27/18 00:21 Microcytosis Not Reportable 03/27/18 00:21 Macrocytosis Not Reportable 03/27/18 00:21 Spherocytes Not Reportable 03/27/18 00:21 Pappenheimer Bodies Not Reportable 03/27/18 00:21 Sickle Cells Not Reportable 03/27/18 00:21 Target Cells Not Reportable 03/27/18 00:21 Tear Drop Cells Not Reportable 03/27/18 00:21 Ovalocytes Not Reportable 03/27/18 00:21 Helmet Cells Not Reportable 03/27/18 00:21 [place] Bodies Not Reportable 03/27/18 00:21 [place] Rings Not Reportable 03/27/18 00:21 [place] Cells Rare 03/27/18 00:21 Bite Cells Not Reportable 03/27/18 00:21 Crenated Cell Not Reportable 03/27/18 00:21 Elliptocytes Not Reportable 03/27/18 00:21 Acanthocytes (Spur) Not Reportable 03/27/18 00:21 Rouleaux Not Reportable 03/27/18 00:21 Hemoglobin C Crystals Not Reportable 03/27/18 00:21 Schistocytes Not Reportable 03/27/18 00:21 Malaria parasites Not Reportable 03/27/18 00:21 Jeovany Bodies Not Reportable 03/27/18 00:21 Hem Pathologist Commnt No 03/27/18 00:21 PT 13.4 Sec. (12.2-14.9) 03/21/18 14:31 INR 0.97 (0.87-1.13) 03/21/18 14:31 POC ABG pH 7.376 (7.35-7.45) 03/22/18 15:07 POC ABG pCO2 36.9 (35-45) 03/22/18 15:07 POC ABG pO2 62 (80-105) L 03/22/18 15:07 POC ABG HCO3 21.6 03/22/18 15:07 POC ABG Total CO2 23 03/22/18 15:07 POC ABG O2 Sat 91 03/22/18 15:07 POC ABG Base Excess -4 03/22/18 15:07 VBG pH 7.371 (7.320-7.420) 03/21/18 14:25 FiO2 40 % 03/22/18 15:07 Sodium 142 mmol/L (137-145) 03/26/18 11:07 Potassium 3.9 mmol/L (3.6-5.0) 03/26/18 11:07 Chloride 104.1 mmol/L (98-107) 03/26/18 11:07 Carbon Dioxide 20 mmol/L (22-30) L 03/26/18 11:07 Anion Gap 22 mmol/L 03/26/18 11:07 BUN 73 mg/dL (9-20) H 03/26/18 11:07 Creatinine 6.4 mg/dL (0.8-1.5) H 03/26/18 11:07 Estimated GFR 11 ml/min 03/26/18 11:07 BUN/Creatinine Ratio 11 % 03/26/18 11:07 Glucose 105 mg/dL (75-100) H 03/26/18 11:07 Hemoglobin A1c 5.8 % (4-6) 03/21/18 14:06 Lactic Acid 1.10 mmol/L (0.7-2.0) 03/21/18 17:11 Uric Acid 7.2 mg/dL (3.5-7.6) 03/22/18 16:21 Calcium 8.8 mg/dL (8.4-10.2) 03/26/18 11:07 Total Bilirubin 1.90 mg/dL (0.1-1.2) H 03/22/18 06:54 Direct Bilirubin 2.2 mg/dL (0-0.2) H 03/21/18 15:13 Indirect Bilirubin 0.7 mg/dL 03/21/18 15:13 AST 136 units/L (5-40) H 03/22/18 06:54 ALT 142 units/L (7-56) H 03/22/18 06:54 Alkaline Phosphatase 135 units/L (35-129) H 03/22/18 06:54 Troponin T < 0.010 ng/mL (0.00-0.029) 03/21/18 15:17 C-Reactive Protein 9.90 mg/dL (0.00-1.30) H 03/24/18 12:08 NT-Pro-B Natriuret Pep 1188 pg/mL (0-900) H 03/21/18 15:17 Total Protein 6.0 g/dL (6.3-8.2) L 03/22/18 06:54 Albumin 2.5 g/dL (3.9-5) L 03/22/18 06:54 Albumin/Globulin Ratio 0.7 % 03/22/18 06:54 Urine Color Yellow (Yellow) 03/21/18 17:52 Urine Turbidity Clear (Clear) 03/21/18 17:52 Urine pH 5.0 (5.0-7.0) 03/21/18 17:52 Ur Specific [place] 1.010 (1.003-1.030) 03/21/18 17:52 Urine Protein 30 mg/dl mg/dL (Negative) 03/21/18 17:52 Urine Glucose (UA) Neg mg/dL (Negative) 03/21/18 17:52 Urine Ketones Neg mg/dL (Negative) 03/21/18 17:52 Urine Blood Mod (Negative) 03/21/18 17:52 Urine Nitrite Neg (Negative) 03/21/18 17:52 Urine Bilirubin Neg (Negative) 03/21/18 17:52 Urine Urobilinogen 4.0 mg/dL (<2.0) 03/21/18 17:52 Ur Leukocyte Esterase Neg (Negative) 03/21/18 17:52 Urine WBC (Auto) 5.0 /HPF (0.0-6.0) 03/21/18 17:52 Urine RBC (Auto) 16.0 /HPF (0.0-6.0) 03/21/18 17:52 U Epithel Cells (Auto) 1.0 /HPF (0-13.0) 03/21/18 17:52 Urine Bacteria (Auto) 1+ /HPF (Negative) 03/21/18 17:52 Amorphous Crystals Few 03/21/18 17:52 Urine Creatinine 87.4 mg/dL (0.1-20.0) H 03/23/18 21:15 Urine Sodium 53 mmol/L 03/23/18 21:15 Urine Total Protein 21 mg/dL (5-11.8) H 03/23/18 21:15 Hepatitis A IgM Ab Non-reactive (NonReactive) 03/22/18 16:21 Hep Bs Antigen Non-reactive (Negative) 03/22/18 16:21 Hep B Core IgM Ab Non-reactive (NonReactive) 03/22/18 16:21 Hepatitis C Antibody Non-reactive (NonReactive) 03/22/18 16:21 HIV 1&2 Antibody Rapid Non react (Non React) 03/24/18 12:08 HIV P24 Antigen Non react (Non React) 03/24/18 12:08
--- NOTE | 2018-03-27 10:52 | Progress Note ---
Assessment and Plan 58 y/o male with acute onset of shortness of breath, thought secondary to CAP vs acute bronchitis. 1. Pulm status is stable to improving. 2. No objection to discharge from lung standpoint. 3. Will need a total of 8 days of abx therapy, including the duration he had in house. Could send out on oral levaquin. Does not need both rocephin and levaquin 4. Will also need steroid taper at discharge. Start at 60, do this for 3 days then 40 for 3 days then20 for 3 days, then 10 for 3 days and then stop. Subjective Date of service: 03/27/18 Principal diagnosis: pneumonia Interval history: Awake and alert. On room air. States that breathing is a lot better. Still on IV abx and IV steroids. at bedside. About to have blood drawn. Objective Vital Signs - 12hr 03/26/18 03/27/18 03/27/18 23:20 08:28 08:38 Temperature 98.2 F Pulse Rate 86 Pulse Rate [ 85 87 Anterior Bilateral Throughout] Respiratory 20 Rate Respiratory 20 20 Rate [Anterior Bilateral Throughout] Blood Pressure 146/79 O2 Sat by Pulse 93 97 Oximetry Constitutional: no acute distress, alert, other (obese) Eyes: non-icteric ENT: oropharynx moist Neck: supple Effort: normal Ascultation: Bilateral: diminished breath sounds (bases), wheezes (very faint expiratory), rhonchi Cardiovascular: regular rate and rhythm (no mrg) Gastrointestinal: normoactive bowel sounds, soft, non-tender, non-distended Integumentary: normal Extremities: no cyanosis, pink and warm, edema (trace bilateral LE edema) Neurologic: normal mental status, non-focal exam, pupils equal and round, CN II- XII normal Psychiatric: mood appropriate, affect normal CBC and BMP: 03/27/18 00:21 03/26/18 11:07 ABG, PT/INR, D-dimer: ABG POC ABG pH 7.376 (7.35-7.45) 03/22/18 15:07 POC ABG pCO2 36.9 (35-45) 03/22/18 15:07 POC ABG pO2 62 (80-105) L 03/22/18 15:07 POC ABG HCO3 21.6 03/22/18 15:07 POC ABG Total CO2 23 03/22/18 15:07 POC ABG O2 Sat 91 03/22/18 15:07 PT/INR, D-dimer PT 13.4 Sec. (12.2-14.9) 03/21/18 14:31 INR 0.97 (0.87-1.13) 03/21/18 14:31 Abnormal lab findings: Abnormal Labs 03/21/18 03/21/18 03/21/18 14:06 14:06 15:13 WBC 17.1 H RBC Hgb Hct MCV 95 H RDW 15.6 H Seg Neuts % (Manual) 94.0 H Lymphocytes % (Manual) 4.0 L Seg Neutrophils # Man 16.1 H Lymphocytes # (Manual) 0.7 L POC ABG pO2 Sodium 127 L Potassium 3.5 L Chloride 83.6 L Carbon Dioxide BUN 49 H Creatinine 6.4 H Glucose 114 H Calcium Total Bilirubin 2.90 H Direct Bilirubin 2.2 H AST 234 H ALT 195 H Alkaline Phosphatase 148 H C-Reactive Protein NT-Pro-B Natriuret Pep Total Protein Albumin 3.0 L Urine Creatinine Urine Total Protein 03/21/18 03/22/18 03/22/18 15:17 06:54 06:54 WBC 16.9 H RBC Hgb Hct MCV 95 H RDW 15.8 H Seg Neuts % (Manual) 94.0 H Lymphocytes % (Manual) 4.0 L Seg Neutrophils # Man 15.9 H Lymphocytes # (Manual) 0.7 L POC ABG pO2 Sodium 129 L Potassium 3.5 L Chloride 89.6 L Carbon Dioxide BUN 55 H Creatinine 6.8 H Glucose 117 H Calcium 7.9 L Total Bilirubin 1.90 H Direct Bilirubin AST 136 H ALT 142 H Alkaline Phosphatase 135 H C-Reactive Protein NT-Pro-B Natriuret Pep 1188 H Total Protein 6.0 L Albumin 2.5 L Urine Creatinine Urine Total Protein 03/22/18 03/23/18 03/23/18 15:07 13:47 14:58 WBC 24.0 H RBC Hgb Hct MCV 96 H RDW 15.9 H Seg Neuts % (Manual) 94.0 H Lymphocytes % (Manual) 4.0 L Seg Neutrophils # Man 22.6 H Lymphocytes # (Manual) 1.0 L POC ABG pO2 62 L Sodium 128 L Potassium Chloride 92.9 L Carbon Dioxide 18 L BUN 67 H Creatinine 6.8 H Glucose 183 H Calcium Total Bilirubin Direct Bilirubin AST ALT Alkaline Phosphatase C-Reactive Protein NT-Pro-B Natriuret Pep Total Protein Albumin Urine Creatinine Urine Total Protein 03/23/18 03/24/18 03/24/18 21:15 05:54 05:54 WBC 22.6 H RBC Hgb 11.7 L Hct 34.7 L MCV RDW 16.0 H Seg Neuts % (Manual) 96.0 H Lymphocytes % (Manual) 2.0 L Seg Neutrophils # Man 21.7 H Lymphocytes # (Manual) 0.5 L POC ABG pO2 Sodium 136 L D Potassium Chloride Carbon Dioxide 19 L BUN 74 H Creatinine 7.2 H Glucose 136 H Calcium Total Bilirubin Direct Bilirubin AST ALT Alkaline Phosphatase C-Reactive Protein NT-Pro-B Natriuret Pep Total Protein Albumin Urine Creatinine 87.4 H Urine Total Protein 21 H 03/24/18 03/25/18 03/25/18 12:08 05:59 05:59 WBC 19.7 H RBC 3.56 L Hgb 11.2 L Hct 33.4 L MCV RDW 16.1 H Seg Neuts % (Manual) 78.0 H Lymphocytes % (Manual) 9.0 L Seg Neutrophils # Man 15.4 H Lymphocytes # (Manual) POC ABG pO2 Sodium Potassium Chloride Carbon Dioxide 20 L BUN 73 H Creatinine 6.7 H Glucose 103 H Calcium Total Bilirubin Direct Bilirubin AST ALT Alkaline Phosphatase C-Reactive Protein 9.90 H NT-Pro-B Natriuret Pep Total Protein Albumin Urine Creatinine Urine Total Protein 03/26/18 03/27/18 11:07 00:21 WBC 20.5 H RBC 3.63 L Hgb 11.6 L Hct 34.8 L MCV 96 H RDW 16.3 H Seg Neuts % (Manual) 81.0 H Lymphocytes % (Manual) 5.0 L Seg Neutrophils # Man 16.6 H Lymphocytes # (Manual) 1.0 L POC ABG pO2 Sodium Potassium Chloride Carbon Dioxide 20 L BUN 73 H Creatinine 6.4 H Glucose 105 H Calcium Total Bilirubin Direct Bilirubin AST ALT Alkaline Phosphatase C-Reactive Protein NT-Pro-B Natriuret Pep Total Protein Albumin Urine Creatinine Urine Total Protein
--- NOTE | 2018-03-27 15:34 | Progress Note ---
Assessment and Plan Assessment: 1) Sepsis: resolved, leukocytosis worsening on IV solumedrol. Etiology most likely bilateral pneumonia. 2) Bilateral pneumonia/CAP: DDx. Strep, Legionnaires -CTA show extensive bilateral pneumonia right more than left -HIV neg 3) Acute respiratory failure 4) Smoking abuse 5) Elevated LFTs ? viral hepatitis panel neg 6) OSIEL - Kidney ultrasound was unremarkable. Plan: -f/u Legionella urine antigen, Streptococcus pneumoniae urine antigen serology - pending -f/u CRP, URIEL with reflex, C3, C4, ANCA - pending -stop ceftriaxone -continue po levaquin 500 mg q 48h total 8 days until 03/31 -close monitoring -ID clinic f/u in 2 weeks I am signing off Thank you for your consultation, will follow up with you. Cassia Ridley MD Infectious Diseases Specialist [facility] [phone] O [phone] Subjective Date of service: 03/27/18 Principal diagnosis: pneumonia Interval history: Feels great, wants to go home, on room air, no fever Microbiology: Blood cultures: 03/21 ngtd Urine cultures: 03/21 10-100K mixed Other: Current Antimicrobials: Ceftriaxone Levaquin Prior Antimicrobials: Zosyn Vancomycin Objective - Exam Narrative Exam: General appearance: Alert in NAD, conversant on NC O2 Eyes: anicteric sclerae, moist conjunctivae; no lid-lag; PERRLA HENT: Atraumatic; oropharynx clear with moist mucous membranes and no mucosal ulcerations/no oral thrush; normal hard and soft palate. Normal external ears. Neck: Trachea midline; supple, no thyromegaly or lymphadenopathy Lungs: sina crackles CV: RRR, no murmurs Abdomen: Soft, non-tender; no masses or hepatosplenomegaly Extremities: No peripheral edema or extremity lymphadenopathy Skin: Normal temperature, turgor and texture; no rash, ulcers or subcutaneous nodules Psych: Appropriate affect, alert and oriented to person, place and time. Neuro: alert and oriented x 3. Moving all extermities Lines: No CVL / PICC - Constitutional Vitals: Vital Signs Temp Pulse Resp BP Pulse Ox 98.6 F 86 20 152/90 100 03/27/18 14:05 03/27/18 14:05 03/27/18 14:05 03/27/18 14:05 03/27/18 13:38 Temperature -Last 24 Hours Temperature 98.6 F Temperature 98.6 F Temperature 98.2 F Temperature 97.8 F - Labs CBC & Chem 7: 03/27/18 00:21 03/27/18 10:47 Labs: Abnormal lab results 03/27/18 03/27/18 Range/Units 00:21 10:47 WBC 20.5 H (4.5-11.0) K/mm3 RBC 3.63 L (3.65-5.03) M/mm3 Hgb 11.6 L (11.8-15.2) gm/dl Hct 34.8 L (35.5-45.6) % MCV 96 H (84-94) fl RDW 16.3 H (13.2-15.2) % Seg Neuts % (Manual) 81.0 H (40.0-70.0) % Lymphocytes % (Manual) 5.0 L (13.4-35.0) % Seg Neutrophils # Man 16.6 H (1.8-7.7) K/mm3 Lymphocytes # (Manual) 1.0 L (1.2-5.4) K/mm3 Carbon Dioxide 19 L (22-30) mmol/L BUN 65 H (9-20) mg/dL Creatinine 5.6 H (0.8-1.5) mg/dL Glucose 105 H (75-100) mg/dL
--- NOTE | 2018-03-27 17:36 | Progress Note ---
Assessment and Plan Impression: * Nonoliguric acute kidney injury secondary to ATN vs contrast induced nephropathy --HIV and hepatitis negative * PNA * Hyponatremia * Metabolic acidosis * Leukocytosis - likey steroid induced Plan: * UOP improving, SCr is trending down - no indication for renal replacement therapy; baseline renal function unknown * Abx per ID * Continue IVF * Await pending serologies: ANCA, URIEL, C3/C4, antiGBM, SPEP, UPEP * Encouraged po hydration * Dose medications for renal function * Avoid potential nephrotoxins Subjective Date of service: 03/27/18 Principal diagnosis: pneumonia Interval history: Patient has no complaints today. Denies SOB. Objective - Vital Signs Vital signs: Vital Signs - 12hr 03/27/18 03/27/18 03/27/18 06:33 08:28 08:38 Temperature Pulse Rate 84 Pulse Rate [ 85 87 Anterior Bilateral Throughout] Respiratory Rate Respiratory 20 20 Rate [Anterior Bilateral Throughout] Blood Pressure 147/88 Blood Pressure [Left] O2 Sat by Pulse 95 97 Oximetry 03/27/18 03/27/18 03/27/18 11:30 11:40 13:38 Temperature 98.6 F Pulse Rate 88 Pulse Rate [ 80 88 Anterior Bilateral Throughout] Respiratory 20 Rate Respiratory 20 20 Rate [Anterior Bilateral Throughout] Blood Pressure Blood Pressure [Left] O2 Sat by Pulse 100 Oximetry 03/27/18 14:05 Temperature 98.6 F Pulse Rate 86 Pulse Rate [ Anterior Bilateral Throughout] Respiratory 20 Rate Respiratory Rate [Anterior Bilateral Throughout] Blood Pressure Blood Pressure 152/90 [Left] O2 Sat by Pulse Oximetry - General Appearance General appearance: well-developed, well-nourished EENT: ATNC Respiratory: Present: Clear to Ascultation Cardiology: regular, S1S2 Gastrointestinal: normal, no tenderness, no distended Integumentary: no rash Neurologic: no focal deficit, alert and oriented x3 Musculoskeletal: other (no edema) Psychiatric: cooperative - Lab 03/27/18 00:21 03/27/18 10:47 Most recent lab results Calcium 9.0 mg/dL (8.4-10.2) 03/27/18 10:47 Urine Creatinine 87.4 mg/dL (0.1-20.0) H 03/23/18 21:15 Urine Sodium 53 mmol/L 03/23/18 21:15 Urine Total Protein 21 mg/dL (5-11.8) H 03/23/18 21:15
[2018-03-27] MEDS: D5NS 1,000 ML IV SCH (18:38)
[2018-03-28] MEDS: DUONEB *Not for PRN Use IH SCH ×3 (08:09→20:54)
[2018-03-28] MEDS ORDERED: PROVENTIL IH PRN (08:28)
--- NOTE | 2018-03-28 08:47 | Progress Note ---
Assessment and Plan Impression: * Nonoliguric acute kidney injury secondary to ATN vs contrast induced nephropathy --HIV and hepatitis negative * PNA * Hyponatremia * Metabolic acidosis * Leukocytosis - likey steroid induced Plan: * SCr 5.0mg/dL - patient w/ good UOP and SCr is trending down - no indication for renal replacement therapy; baseline renal function unknown * Abx per ID * Will stop IVF; encouraged po hydration * Await pending serologies: ANCA, URIEL, C3/C4, antiGBM, SPEP, UPEP * Encouraged po hydration * Dose medications for renal function * Avoid potential nephrotoxins * Patient is not cleared for d/c from a renal standpoint at this time. Hope to clear for discharge from a nephrology standpoint in next 24-48hours. Will need outpatient follow fup Subjective Date of service: 03/28/18 Principal diagnosis: pneumonia Interval history: Patient has no complaints today. Objective - Vital Signs Vital signs: Vital Signs - 12hr 03/28/18 03/28/18 03/28/18 00:06 00:13 06:13 Temperature 98.1 F 97.7 F Pulse Rate 89 81 67 Pulse Rate [ Anterior Bilateral Lower Lobe] Pulse Rate [ Anterior Left Upper Lobe] Respiratory 18 18 20 Rate Respiratory Rate [Anterior Bilateral Lower Lobe] Respiratory Rate [Anterior Left Upper Lobe ] Blood Pressure 142/80 151/76 O2 Sat by Pulse 96 96 97 Oximetry 03/28/18 03/28/18 08:11 08:13 Temperature Pulse Rate Pulse Rate [ 77 Anterior Bilateral Lower Lobe] Pulse Rate [ 81 Anterior Left Upper Lobe] Respiratory Rate Respiratory 18 Rate [Anterior Bilateral Lower Lobe] Respiratory 18 Rate [Anterior Left Upper Lobe ] Blood Pressure O2 Sat by Pulse 98 Oximetry - General Appearance General appearance: well-developed, well-nourished EENT: ATNC Respiratory: Present: Clear to Ascultation Cardiology: regular, S1S2 Gastrointestinal: normal, no tenderness, no distended Integumentary: no rash, warm and dry Neurologic: no focal deficit Musculoskeletal: other (trace edema) Psychiatric: cooperative - Lab 03/27/18 00:21 03/28/18 09:04 Most recent lab results Calcium 9.0 mg/dL (8.4-10.2) 03/27/18 10:47 Urine Creatinine 87.4 mg/dL (0.1-20.0) H 03/23/18 21:15 Urine Sodium 53 mmol/L 03/23/18 21:15 Urine Total Protein 21 mg/dL (5-11.8) H 03/23/18 21:15
[2018-03-28 09:30] LABS: Calcium 9.4 mg/dL (8.4-10.2)
[2018-03-28] MEDS: LEVAQUIN PO SCH (09:39)
[2018-03-28] MEDS: HEPARIN SUB-Q SCH ×2 (09:39→21:46)
[2018-03-28] MEDS: D5NS 1,000 ML IV SCH (09:40)
[2018-03-28] MEDS: SODIUM CHLORIDE FLUSH SYRINGE 10 ML IV SCH ×2 (09:40→21:46)
--- NOTE | 2018-03-28 14:07 | Progress Note ---
Assessment and Plan Assessment and plan: Sepsis. Patient meets criteria given the fever, leukocytosis and diagnosis of pneumonia. Continue IV Levaquin to 03/31 per ID recommendation. Leukocytosis likely due to sepsis and Solu-Medrol. Acute hypoxemic respiratory failure - Resolved - CTA negative for PE. Echocardiogram revealed normal LV function, EF 55-60%. The patient will need outpatient PFTs. Patient is on IV Solu-Medrol. Pulmonary following Bilateral pneumonia. Continue Levaquin. Acute renal failure. Patient was admitted with a creatinine greater than 6 currently trending down. We do not have a baseline creatinine to compare. This most likely represents acute on chronic disease. Continue to follow closely and patient may need ENTEROSTOMAL NURSE if no significant improvement. Renal ultrasound is negative for obstruction. Follow-up URIEL, ANCA and complement Hyponatremia. - Resolved. 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 Continue to follow BMP. DVT prophylaxis. Continue heparin. Disposition - Continue patient, we'll follow nephrology recommendation. History Interval history: Patient was seen and evaluated this morning, patient was breathing well, no new complaints. Hospitalist Physical - Physical exam Narrative exam: Not in cardiopulmonary distress. The patient is obese. Vital signs as documented. Head exam is unremarkable. No scleral icterus . Neck is without jugular venous distension, thyromegaly, or carotid bruits. Lungs are clear to auscultation. Cardiac exam reveals regular rate and Rhythm. First and second heart sounds normal. No murmurs, rubs or gallops. Abdominal exam reveals normal bowel sounds, no masses, no organomegaly and no aortic enlargement. Extremities are nonedematous and both femoral and pedal pulses are normal. 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 No focal weakness. - Constitutional Vitals: Temp Pulse Resp BP Pulse Ox 97.7 F 88 18 151/76 98 03/28/18 06:13 03/28/18 13:40 03/28/18 13:40 03/28/18 06:13 03/28/18 08:13 General appearance: Present: no acute distress, well-nourished Results - Labs CBC & Chem 7: 03/27/18 00:21 03/28/18 09:04 Labs: Laboratory Last Values WBC 20.5 K/mm3 (4.5-11.0) H 03/27/18 00:21 RBC 3.63 M/mm3 (3.65-5.03) L 03/27/18 00:21 Hgb 11.6 gm/dl (11.8-15.2) L 03/27/18 00:21 Hct 34.8 % (35.5-45.6) L 03/27/18 00:21 MCV 96 fl (84-94) H 03/27/18 00:21 MCH 32 pg (28-32) 03/27/18 00:21 MCHC 33 % (32-34) 03/27/18 00:21 RDW 16.3 % (13.2-15.2) H 03/27/18 00:21 Plt Count 380 K/mm3 (140-440) 03/27/18 00:21 Lymph % (Auto) Matcher Offbearer 03/23/18 14:58 [place] % (Auto) Matcher Offbearer 03/23/18 14:58 Eos % (Auto) Matcher Offbearer 03/23/18 14:58 Baso % (Auto) Matcher Offbearer 03/23/18 14:58 Lymph # Matcher Offbearer 03/23/18 14:58 [place] # Matcher Offbearer 03/23/18 14:58 Eos # Matcher Offbearer 03/23/18 14:58 Baso # Matcher Offbearer 03/23/18 14:58 Add Manual Diff Complete 03/27/18 00:21 Total Counted 100 03/27/18 00:21 Seg Neutrophils % Matcher Offbearer 03/27/18 00:21 Seg Neuts % (Manual) 81.0 % (40.0-70.0) H 03/27/18 00:21 Band Neutrophils % 11.0 % 03/27/18 00:21 Lymphocytes % (Manual) 5.0 % (13.4-35.0) L 03/27/18 00:21 Reactive Lymphs % (Man) 0 % 03/27/18 00:21 Monocytes % (Manual) 3.0 % (0.0-7.3) 03/27/18 00:21 Eosinophils % (Manual) 0 % (0.0-4.3) 03/27/18 00:21 Basophils % (Manual) 0 % (0.0-1.8) 03/27/18 00:21 Metamyelocytes % 0 % 03/27/18 00:21 Myelocytes % 0 % 03/27/18 00:21 Promyelocytes % 0 % 03/27/18 00:21 Blast Cells % 0 % 03/27/18 00:21 Nucleated RBC % Not Reportable 03/27/18 00:21 Seg Neutrophils # Matcher Offbearer 03/23/18 14:58 Seg Neutrophils # Man 16.6 K/mm3 (1.8-7.7) H 03/27/18 00:21 Band Neutrophils # 2.3 K/mm3 03/27/18 00:21 Lymphocytes # (Manual) 1.0 K/mm3 (1.2-5.4) L 03/27/18 00:21 Abs React Lymphs (Man) 0.0 K/mm3 03/27/18 00:21 Monocytes # (Manual) 0.6 K/mm3 (0.0-0.8) 03/27/18 00:21 Eosinophils # (Manual) 0.0 K/mm3 (0.0-0.4) 03/27/18 00:21 Basophils # (Manual) 0.0 K/mm3 (0.0-0.1) 03/27/18 00:21 Metamyelocytes # 0.0 K/mm3 03/27/18 00:21 Myelocytes # 0.0 K/mm3 03/27/18 00:21 Promyelocytes # 0.0 K/mm3 03/27/18 00:21 Blast Cells # 0.0 K/mm3 03/27/18 00:21 WBC Morphology Not Reportable 03/27/18 00:21 Hypersegmented Neuts Not Reportable 03/27/18 00:21 Hyposegmented Neuts Not Reportable 03/27/18 00:21 Hypogranular Neuts Not Reportable 03/27/18 00:21 Smudge Cells Not Reportable 03/27/18 00:21 Toxic Granulation Not Reportable 03/27/18 00:21 Toxic Vacuolation Not Reportable 03/27/18 00:21 Dohle Bodies Not Reportable 03/27/18 00:21 Pelger-Huet Anomaly Not Reportable 03/27/18 00:21 [place] Rods Not Reportable 03/27/18 00:21 Platelet Estimate Appears normal 03/27/18 00:21 Clumped Platelets Not Reportable 03/27/18 00:21 Plt Clumps, EDTA Not Reportable 03/27/18 00:21 Large Platelets Not Reportable 03/27/18 00:21 Giant Platelets Not Reportable 03/27/18 00:21 Platelet Satelliting Not Reportable 03/27/18 00:21 Plt Morphology Comment Not Reportable 03/27/18 00:21 RBC Morphology Not Reportable 03/27/18 00:21 Dimorphic RBCs Not Reportable 03/27/18 00:21 Polychromasia Not Reportable 03/27/18 00:21 Hypochromasia 1+ 03/27/18 00:21 Poikilocytosis Not Reportable 03/27/18 00:21 Anisocytosis 1+ 03/27/18 00:21 Microcytosis Not Reportable 03/27/18 00:21 Macrocytosis Not Reportable 03/27/18 00:21 Spherocytes Not Reportable 03/27/18 00:21 Pappenheimer Bodies Not Reportable 03/27/18 00:21 Sickle Cells Not Reportable 03/27/18 00:21 Target Cells Not Reportable 03/27/18 00:21 Tear Drop Cells Not Reportable 03/27/18 00:21 Ovalocytes Not Reportable 03/27/18 00:21 Helmet Cells Not Reportable 03/27/18 00:21 [place] Bodies Not Reportable 03/27/18 00:21 [place] Rings Not Reportable 03/27/18 00:21 [place] Cells Rare 03/27/18 00:21 Bite Cells Not Reportable 03/27/18 00:21 Crenated Cell Not Reportable 03/27/18 00:21 Elliptocytes Not Reportable 03/27/18 00:21 Acanthocytes (Spur) Not Reportable 03/27/18 00:21 Rouleaux Not Reportable 03/27/18 00:21 Hemoglobin C Crystals Not Reportable 03/27/18 00:21 Schistocytes Not Reportable 03/27/18 00:21 Malaria parasites Not Reportable 03/27/18 00:21 [place] Bodies Not Reportable 03/27/18 00:21 Hem Pathologist Commnt No 03/27/18 00:21 PT 13.4 Sec. (12.2-14.9) 03/21/18 14:31 INR 0.97 (0.87-1.13) 03/21/18 14:31 POC ABG pH 7.376 (7.35-7.45) 03/22/18 15:07 POC ABG pCO2 36.9 (35-45) 03/22/18 15:07 POC ABG pO2 62 (80-105) L 03/22/18 15:07 POC ABG HCO3 21.6 03/22/18 15:07 POC ABG Total CO2 23 03/22/18 15:07 POC ABG O2 Sat 91 03/22/18 15:07 POC ABG Base Excess -4 03/22/18 15:07 VBG pH 7.371 (7.320-7.420) 03/21/18 14:25 FiO2 40 % 03/22/18 15:07 Sodium 141 mmol/L (137-145) 03/28/18 09:04 Potassium 4.3 mmol/L (3.6-5.0) 03/28/18 09:04 Chloride 104.3 mmol/L (98-107) 03/28/18 09:04 Carbon Dioxide 23 mmol/L (22-30) 03/28/18 09:04 Anion Gap 18 mmol/L 03/28/18 09:04 BUN 60 mg/dL (9-20) H 03/28/18 09:04 Creatinine 5.0 mg/dL (0.8-1.5) H 03/28/18 09:04 Estimated GFR 14 ml/min 03/28/18 09:04 BUN/Creatinine Ratio 12 % 03/28/18 09:04 Glucose 129 mg/dL (75-100) H 03/28/18 09:04 Hemoglobin A1c 5.8 % (4-6) 03/21/18 14:06 Lactic Acid 1.10 mmol/L (0.7-2.0) 03/21/18 17:11 Uric Acid 7.2 mg/dL (3.5-7.6) 03/22/18 16:21 Calcium 9.4 mg/dL (8.4-10.2) 03/28/18 09:04 Total Bilirubin 1.90 mg/dL (0.1-1.2) H 03/22/18 06:54 Direct Bilirubin 2.2 mg/dL (0-0.2) H 03/21/18 15:13 Indirect Bilirubin 0.7 mg/dL 03/21/18 15:13 AST 136 units/L (5-40) H 03/22/18 06:54 ALT 142 units/L (7-56) H 03/22/18 06:54 Alkaline Phosphatase 135 units/L (35-129) H 03/22/18 06:54 Troponin T < 0.010 ng/mL (0.00-0.029) 03/21/18 15:17 C-Reactive Protein 9.90 mg/dL (0.00-1.30) H 03/24/18 12:08 NT-Pro-B Natriuret Pep 1188 pg/mL (0-900) H 03/21/18 15:17 Total Protein 6.0 g/dL (6.3-8.2) L 03/22/18 06:54 Albumin 2.5 g/dL (3.9-5) L 03/22/18 06:54 Albumin/Globulin Ratio 0.7 % 03/22/18 06:54 Urine Color Yellow (Yellow) 03/21/18 17:52 Urine Turbidity Clear (Clear) 03/21/18 17:52 Urine pH 5.0 (5.0-7.0) 03/21/18 17:52 Ur Specific [place] 1.010 (1.003-1.030) 03/21/18 17:52 Urine Protein 30 mg/dl mg/dL (Negative) 03/21/18 17:52 Urine Glucose (UA) Neg mg/dL (Negative) 03/21/18 17:52 Urine Ketones Neg mg/dL (Negative) 03/21/18 17:52 Urine Blood Mod (Negative) 03/21/18 17:52 Urine Nitrite Neg (Negative) 03/21/18 17:52 Urine Bilirubin Neg (Negative) 03/21/18 17:52 Urine Urobilinogen 4.0 mg/dL (<2.0) 03/21/18 17:52 Ur Leukocyte Esterase Neg (Negative) 03/21/18 17:52 Urine WBC (Auto) 5.0 /HPF (0.0-6.0) 03/21/18 17:52 Urine RBC (Auto) 16.0 /HPF (0.0-6.0) 03/21/18 17:52 U Epithel Cells (Auto) 1.0 /HPF (0-13.0) 03/21/18 17:52 Urine Bacteria (Auto) 1+ /HPF (Negative) 03/21/18 17:52 Amorphous Crystals Few 03/21/18 17:52 Urine Creatinine 87.4 mg/dL (0.1-20.0) H 03/23/18 21:15 Urine Sodium 53 mmol/L 03/23/18 21:15 Urine Total Protein 21 mg/dL (5-11.8) H 03/23/18 21:15 Hepatitis A IgM Ab Non-reactive (NonReactive) 03/22/18 16:21 Hep Bs Antigen Non-reactive (Negative) 03/22/18 16:21 Hep B Core IgM Ab Non-reactive (NonReactive) 03/22/18 16:21 Hepatitis C Antibody Non-reactive (NonReactive) 03/22/18 16:21 HIV 1&2 Antibody Rapid Non react (Non React) 03/24/18 12:08 HIV P24 Antigen Non react (Non React) 03/24/18 12:08
[2018-03-28] MEDS: LEVAQUIN 750MG/150ML 750 MG/150 ML BAG IV SCH (21:24)
[2018-03-29 06:24] LABS: Hematocrit 32.6 % (35.5-45.6); Hemoglobin 11.2 gm/dl (11.8-15.2); Mean Corpuscular HGB Conc 34 % (32-34); Mean Corpuscular Hemoglobin 32 pg (28-32); Mean Corpuscular Volume 94 fl (84-94); Platelet Count 428 K/mm3 (140-440); Red Blood Count 3.45 M/mm3 (3.65-5.03); Red Cell Distribution Width 16.6 % (13.2-15.2)
[2018-03-29 07:45] LABS: Calcium 8.7 mg/dL (8.4-10.2)
[2018-03-29 08:23] LABS: Anisocytosis 1+; Band Neutrophils # (Manual) 0.8 K/mm3; Basophils % (Manual) 0 % (0.0-1.8); Eosinophils % (Manual) 0 % (0.0-4.3); Hypochromasia 1+; Platelet Estimate Consistent w Auto; Total Cells Counted 100
[2018-03-29] MEDS: DUONEB *Not for PRN Use IH SCH ×3 (09:19→21:00)
[2018-03-29] MEDS: DELTASONE PO SCH (11:31)
[2018-03-29] MEDS: HEPARIN SUB-Q SCH ×2 (11:32→22:46)
[2018-03-29] MEDS: SODIUM CHLORIDE FLUSH SYRINGE 10 ML IV SCH ×2 (11:32→22:46)
--- NOTE | 2018-03-29 13:12 | Progress Note ---
Assessment and Plan Impression: * Nonoliguric acute kidney injury secondary to ATN vs contrast induced nephropathy --HIV and hepatitis negative * PNA * Hyponatremia * Metabolic acidosis * Leukocytosis - likey steroid induced Plan: * SCr trending down from 5.0mg/dL to 4.3 - patient w/ good UOP and SCr is trending down - no indication for renal replacement therapy; baseline renal function unknown * Abx per ID * Await pending serologies: ANCA, URIEL, C3/C4, antiGBM, SPEP, UPEP * Encouraged po hydration * Dose medications for renal function * Avoid potential nephrotoxins * Patient should be stable for d/c from a nephrology standpoint in next 24h. Will need outpatient follow up Subjective Date of service: 03/29/18 Principal diagnosis: pneumonia Interval history: Patient has no complaints Objective - Vital Signs Vital signs: Vital Signs - 12hr 03/29/18 03/29/18 03/29/18 06:11 09:20 09:29 Temperature 98.0 F Pulse Rate 86 Pulse Rate [ 68 96 H Anterior Bilateral Lower Lobe] Pulse Rate [ 68 96 H Anterior Bilateral Throughout] Respiratory 18 Rate Respiratory 20 20 Rate [Anterior Bilateral Lower Lobe] Respiratory 20 20 Rate [Anterior Bilateral Throughout] Blood Pressure 144/94 O2 Sat by Pulse 95 Oximetry 03/29/18 11:08 Temperature 98.4 F Pulse Rate 78 Pulse Rate [ Anterior Bilateral Lower Lobe] Pulse Rate [ Anterior Bilateral Throughout] Respiratory 20 Rate Respiratory Rate [Anterior Bilateral Lower Lobe] Respiratory Rate [Anterior Bilateral Throughout] Blood Pressure 143/93 O2 Sat by Pulse 95 Oximetry - General Appearance General appearance: well-developed, well-nourished EENT: ATNC Respiratory: Present: Clear to Ascultation Cardiology: regular, S1S2 Gastrointestinal: normal, no tenderness, no distended Integumentary: no rash Neurologic: alert and oriented x3 Musculoskeletal: other (no edema) Psychiatric: mood/affect appropriate, cooperative - Lab 03/29/18 05:51 03/29/18 05:51 Most recent lab results Calcium 8.7 mg/dL (8.4-10.2) 03/29/18 05:51 Urine Creatinine 87.4 mg/dL (0.1-20.0) H 03/23/18 21:15 Urine Sodium 53 mmol/L 03/23/18 21:15 Urine Total Protein 21 mg/dL (5-11.8) H 03/23/18 21:15
--- NOTE | 2018-03-29 14:55 | Progress Note ---
Assessment and Plan Assessment and plan: Sepsis. Patient meets criteria given the fever, leukocytosis and diagnosis of pneumonia. Continue IV Levaquin to 03/31 per ID recommendation. Leukocytosis likely due to sepsis and Solu-Medrol. Acute hypoxemic respiratory failure - Resolved - CTA negative for PE. Echocardiogram revealed normal LV function, EF 55-60%. The patient will need outpatient PFTs. Patient is on IV Solu-Medrol. Pulmonary following Bilateral pneumonia. Continue Levaquin. Acute renal failure. Patient was admitted with a creatinine greater than 6, currently trending down to 4.3. Renal ultrasound is negative for obstruction. Follow-up URIEL, ANCA and complement. Nephrology is following and recommended no ROAD ROLLER OPERATOR needed at this time Hyponatremia. - Resolved. 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 Continue to follow BMP. DVT prophylaxis. Continue heparin. Disposition - Per Nephrology History Interval history: Patient was seen and evaluated this morning, patient was breathing well, no new complaints. Hospitalist Physical - Physical exam Narrative exam: Not in cardiopulmonary distress. The patient is obese. Vital signs as documented. Head exam is unremarkable. No scleral icterus . Neck is without jugular venous distension, thyromegaly, or carotid bruits. Lungs are clear to auscultation. Cardiac exam reveals regular rate and Rhythm. First and second heart sounds normal. No murmurs, rubs or gallops. Abdominal exam reveals normal bowel sounds, no masses, no organomegaly and no aortic enlargement. Extremities are nonedematous and both femoral and pedal pulses are normal. 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 No focal weakness. - Constitutional Vitals: Temp Pulse Resp BP Pulse Ox 98.4 F 93 H 18 143/93 95 03/29/18 11:08 03/29/18 14:19 03/29/18 14:19 03/29/18 11:08 03/29/18 11:08 General appearance: Present: no acute distress, well-nourished Results - Labs CBC & Chem 7: 03/29/18 05:51 03/29/18 05:51 Labs: Laboratory Last Values WBC 16.2 K/mm3 (4.5-11.0) H 03/29/18 05:51 RBC 3.45 M/mm3 (3.65-5.03) L 03/29/18 05:51 Hgb 11.2 gm/dl (11.8-15.2) L 03/29/18 05:51 Hct 32.6 % (35.5-45.6) L 03/29/18 05:51 MCV 94 fl (84-94) 03/29/18 05:51 MCH 32 pg (28-32) 03/29/18 05:51 MCHC 34 % (32-34) 03/29/18 05:51 RDW 16.6 % (13.2-15.2) H 03/29/18 05:51 Plt Count 428 K/mm3 (140-440) 03/29/18 05:51 Lymph % (Auto) Meat Grinder 03/23/18 14:58 [place] % (Auto) Meat Grinder 03/23/18 14:58 Eos % (Auto) Meat Grinder 03/23/18 14:58 Baso % (Auto) Meat Grinder 03/23/18 14:58 Lymph # Meat Grinder 03/23/18 14:58 [place] # Meat Grinder 03/23/18 14:58 Eos # Meat Grinder 03/23/18 14:58 Baso # Meat Grinder 03/23/18 14:58 Add Manual Diff Complete 03/29/18 05:51 Total Counted 100 03/29/18 05:51 Seg Neutrophils % Meat Grinder 03/27/18 00:21 Seg Neuts % (Manual) 81.0 % (40.0-70.0) H 03/29/18 05:51 Band Neutrophils % 5.0 % 03/29/18 05:51 Lymphocytes % (Manual) 9.0 % (13.4-35.0) L 03/29/18 05:51 Reactive Lymphs % (Man) 0 % 03/29/18 05:51 Monocytes % (Manual) 4.0 % (0.0-7.3) 03/29/18 05:51 Eosinophils % (Manual) 0 % (0.0-4.3) 03/29/18 05:51 Basophils % (Manual) 0 % (0.0-1.8) 03/29/18 05:51 Metamyelocytes % 1.0 % 03/29/18 05:51 Myelocytes % 0 % 03/29/18 05:51 Promyelocytes % 0 % 03/29/18 05:51 Blast Cells % 0 % 03/29/18 05:51 Nucleated RBC % Not Reportable 03/29/18 05:51 Seg Neutrophils # Meat Grinder 03/23/18 14:58 Seg Neutrophils # Man 13.1 K/mm3 (1.8-7.7) H 03/29/18 05:51 Band Neutrophils # 0.8 K/mm3 03/29/18 05:51 Lymphocytes # (Manual) 1.5 K/mm3 (1.2-5.4) 03/29/18 05:51 Abs React Lymphs (Man) 0.0 K/mm3 03/29/18 05:51 Monocytes # (Manual) 0.6 K/mm3 (0.0-0.8) 03/29/18 05:51 Eosinophils # (Manual) 0.0 K/mm3 (0.0-0.4) 03/29/18 05:51 Basophils # (Manual) 0.0 K/mm3 (0.0-0.1) 03/29/18 05:51 Metamyelocytes # 0.2 K/mm3 03/29/18 05:51 Myelocytes # 0.0 K/mm3 03/29/18 05:51 Promyelocytes # 0.0 K/mm3 03/29/18 05:51 Blast Cells # 0.0 K/mm3 03/29/18 05:51 WBC Morphology Not Reportable 03/29/18 05:51 Hypersegmented Neuts Not Reportable 03/29/18 05:51 Hyposegmented Neuts Not Reportable 03/29/18 05:51 Hypogranular Neuts Not Reportable 03/29/18 05:51 Smudge Cells Not Reportable 03/29/18 05:51 Toxic Granulation Not Reportable 03/29/18 05:51 Toxic Vacuolation Not Reportable 03/29/18 05:51 Dohle Bodies Not Reportable 03/29/18 05:51 Pelger-Huet Anomaly Not Reportable 03/29/18 05:51 [place] Rods Not Reportable 03/29/18 05:51 Platelet Estimate Consistent w auto 03/29/18 05:51 Clumped Platelets Not Reportable 03/29/18 05:51 Plt Clumps, EDTA Not Reportable 03/29/18 05:51 Large Platelets Not Reportable 03/29/18 05:51 Giant Platelets Not Reportable 03/29/18 05:51 Platelet Satelliting Not Reportable 03/29/18 05:51 Plt Morphology Comment Not Reportable 03/29/18 05:51 RBC Morphology Not Reportable 03/29/18 05:51 Dimorphic RBCs Not Reportable 03/29/18 05:51 Polychromasia Not Reportable 03/29/18 05:51 Hypochromasia 1+ 03/29/18 05:51 Poikilocytosis Not Reportable 03/29/18 05:51 Anisocytosis 1+ 03/29/18 05:51 Microcytosis Not Reportable 03/29/18 05:51 Macrocytosis Not Reportable 03/29/18 05:51 Spherocytes Not Reportable 03/29/18 05:51 Pappenheimer Bodies Not Reportable 03/29/18 05:51 Sickle Cells Not Reportable 03/29/18 05:51 Target Cells Not Reportable 03/29/18 05:51 Tear Drop Cells Not Reportable 03/29/18 05:51 Ovalocytes Not Reportable 03/29/18 05:51 Helmet Cells Not Reportable 03/29/18 05:51 [place] Bodies Not Reportable 03/29/18 05:51 [place] Rings Not Reportable 03/29/18 05:51 [place] Cells Not Reportable 03/29/18 05:51 Bite Cells Not Reportable 03/29/18 05:51 Crenated Cell Not Reportable 03/29/18 05:51 Elliptocytes Not Reportable 03/29/18 05:51 Acanthocytes (Spur) Not Reportable 03/29/18 05:51 Rouleaux Not Reportable 03/29/18 05:51 Hemoglobin C Crystals Not Reportable 03/29/18 05:51 Schistocytes Not Reportable 03/29/18 05:51 Malaria parasites Not Reportable 03/29/18 05:51 [place] Bodies Not Reportable 03/29/18 05:51 Hem Pathologist Commnt No 03/29/18 05:51 PT 13.4 Sec. (12.2-14.9) 03/21/18 14:31 INR 0.97 (0.87-1.13) 03/21/18 14:31 POC ABG pH 7.376 (7.35-7.45) 03/22/18 15:07 POC ABG pCO2 36.9 (35-45) 03/22/18 15:07 POC ABG pO2 62 (80-105) L 03/22/18 15:07 POC ABG HCO3 21.6 03/22/18 15:07 POC ABG Total CO2 23 03/22/18 15:07 POC ABG O2 Sat 91 03/22/18 15:07 POC ABG Base Excess -4 03/22/18 15:07 VBG pH 7.371 (7.320-7.420) 03/21/18 14:25 FiO2 40 % 03/22/18 15:07 Sodium 141 mmol/L (137-145) 03/29/18 05:51 Potassium 4.4 mmol/L (3.6-5.0) 03/29/18 05:51 Chloride 107.3 mmol/L (98-107) H 03/29/18 05:51 Carbon Dioxide 21 mmol/L (22-30) L 03/29/18 05:51 Anion Gap 17 mmol/L 03/29/18 05:51 BUN 55 mg/dL (9-20) H 03/29/18 05:51 Creatinine 4.3 mg/dL (0.8-1.5) H 03/29/18 05:51 Estimated GFR 17 ml/min 03/29/18 05:51 BUN/Creatinine Ratio 13 % 03/29/18 05:51 Glucose 99 mg/dL (75-100) 03/29/18 05:51 Hemoglobin A1c 5.8 % (4-6) 03/21/18 14:06 Lactic Acid 1.10 mmol/L (0.7-2.0) 03/21/18 17:11 Uric Acid 7.2 mg/dL (3.5-7.6) 03/22/18 16:21 Calcium 8.7 mg/dL (8.4-10.2) 03/29/18 05:51 Total Bilirubin 1.90 mg/dL (0.1-1.2) H 03/22/18 06:54 Direct Bilirubin 2.2 mg/dL (0-0.2) H 03/21/18 15:13 Indirect Bilirubin 0.7 mg/dL 03/21/18 15:13 AST 136 units/L (5-40) H 03/22/18 06:54 ALT 142 units/L (7-56) H 03/22/18 06:54 Alkaline Phosphatase 135 units/L (35-129) H 03/22/18 06:54 Troponin T < 0.010 ng/mL (0.00-0.029) 03/21/18 15:17 C-Reactive Protein 9.90 mg/dL (0.00-1.30) H 03/24/18 12:08 NT-Pro-B Natriuret Pep 1188 pg/mL (0-900) H 03/21/18 15:17 Total Protein 6.0 g/dL (6.3-8.2) L 03/22/18 06:54 Albumin 2.5 g/dL (3.9-5) L 03/22/18 06:54 Albumin/Globulin Ratio 0.7 % 03/22/18 06:54 Urine Color Yellow (Yellow) 03/21/18 17:52 Urine Turbidity Clear (Clear) 03/21/18 17:52 Urine pH 5.0 (5.0-7.0) 03/21/18 17:52 Ur Specific [place] 1.010 (1.003-1.030) 03/21/18 17:52 Urine Protein 30 mg/dl mg/dL (Negative) 03/21/18 17:52 Urine Glucose (UA) Neg mg/dL (Negative) 03/21/18 17:52 Urine Ketones Neg mg/dL (Negative) 03/21/18 17:52 Urine Blood Mod (Negative) 03/21/18 17:52 Urine Nitrite Neg (Negative) 03/21/18 17:52 Urine Bilirubin Neg (Negative) 03/21/18 17:52 Urine Urobilinogen 4.0 mg/dL (<2.0) 03/21/18 17:52 Ur Leukocyte Esterase Neg (Negative) 03/21/18 17:52 Urine WBC (Auto) 5.0 /HPF (0.0-6.0) 03/21/18 17:52 Urine RBC (Auto) 16.0 /HPF (0.0-6.0) 03/21/18 17:52 U Epithel Cells (Auto) 1.0 /HPF (0-13.0) 03/21/18 17:52 Urine Bacteria (Auto) 1+ /HPF (Negative) 03/21/18 17:52 Amorphous Crystals Few 03/21/18 17:52 Urine Creatinine 87.4 mg/dL (0.1-20.0) H 03/23/18 21:15 Urine Sodium 53 mmol/L 03/23/18 21:15 Urine Total Protein 21 mg/dL (5-11.8) H 03/23/18 21:15 Hepatitis A IgM Ab Non-reactive (NonReactive) 03/22/18 16:21 Hep Bs Antigen Non-reactive (Negative) 03/22/18 16:21 Hep B Core IgM Ab Non-reactive (NonReactive) 03/22/18 16:21 Hepatitis C Antibody Non-reactive (NonReactive) 03/22/18 16:21 HIV 1&2 Antibody Rapid Non react (Non React) 03/24/18 12:08 HIV P24 Antigen Non react (Non React) 03/24/18 12:08
[2018-03-30 07:40] LABS: Calcium 8.4 mg/dL (8.4-10.2)
[2018-03-30] MEDS: HEPARIN SUB-Q SCH (10:12)
[2018-03-30] MEDS: LEVAQUIN PO SCH (10:13)
[2018-03-30] MEDS: DELTASONE PO SCH (10:13)
[2018-03-30] MEDS: DUONEB *Not for PRN Use IH SCH ×2 (10:14→14:45)
[2018-03-30] MEDS: SODIUM CHLORIDE FLUSH SYRINGE 10 ML IV SCH (10:14)
[2018-03-30 11:22] VITALS: BP 128/66
--- NOTE | 2018-03-30 15:47 | Progress Note ---
Assessment and Plan Assessment and plan: Sepsis. Patient meets criteria given the fever, leukocytosis and diagnosis of pneumonia. Continue IV Levaquin to 03/31 per ID recommendation. Leukocytosis likely due to sepsis and Solu-Medrol. Acute hypoxemic respiratory failure - Resolved - CTA negative for PE. Echocardiogram revealed normal LV function, EF 55-60%. The patient will need outpatient PFTs. Patient is on IV Solu-Medrol. Pulmonary following Bilateral pneumonia. Continue Levaquin. Acute renal failure. Patient was admitted with a creatinine greater than 6, currently trending down to 4.3. Renal ultrasound is negative for obstruction. Follow-up URIEL, ANCA and complement. Nephrology is following and recommended no FENCE REPAIRMAN needed at this time Hyponatremia. - Resolved. 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 Continue to follow BMP. DVT prophylaxis. Continue heparin. Disposition - Per Nephrology History Interval history: Patient was seen and evaluated this morning, patient was breathing well, no new complaints. Hospitalist Physical - Physical exam Narrative exam: Not in cardiopulmonary distress. The patient is obese. Vital signs as documented. Head exam is unremarkable. No scleral icterus . Neck is without jugular venous distension, thyromegaly, or carotid bruits. Lungs are clear to auscultation. Cardiac exam reveals regular rate and Rhythm. First and second heart sounds normal. No murmurs, rubs or gallops. Abdominal exam reveals normal bowel sounds, no masses, no organomegaly and no aortic enlargement. Extremities are nonedematous and both femoral and pedal pulses are normal. HOSPICE MASSAGE THERAPIST: Alert and oriented 3. No focal weakness. - Constitutional Vitals: Temp Pulse Resp BP Pulse Ox 97.9 F 90 20 128/66 97 03/30/18 11:15 03/30/18 14:45 03/30/18 14:45 03/30/18 11:15 03/30/18 11:15 General appearance: Present: no acute distress, well-nourished Results - Labs CBC & Chem 7: 03/29/18 05:51 03/30/18 06:37 Labs: Laboratory Last Values WBC 16.2 K/mm3 (4.5-11.0) H 03/29/18 05:51 RBC 3.45 M/mm3 (3.65-5.03) L 03/29/18 05:51 Hgb 11.2 gm/dl (11.8-15.2) L 03/29/18 05:51 Hct 32.6 % (35.5-45.6) L 03/29/18 05:51 MCV 94 fl (84-94) 03/29/18 05:51 MCH 32 pg (28-32) 03/29/18 05:51 MCHC 34 % (32-34) 03/29/18 05:51 RDW 16.6 % (13.2-15.2) H 03/29/18 05:51 Plt Count 428 K/mm3 (140-440) 03/29/18 05:51 Lymph % (Auto) [place] 03/23/18 14:58 [place] % (Auto) [place] 03/23/18 14:58 Eos % (Auto) [place] 03/23/18 14:58 Baso % (Auto) [place] 03/23/18 14:58 Lymph # [place] 03/23/18 14:58 [place] # [place] 03/23/18 14:58 Eos # [place] 03/23/18 14:58 Baso # [place] 03/23/18 14:58 Add Manual Diff Complete 03/29/18 05:51 Total Counted 100 03/29/18 05:51 Seg Neutrophils % [place] 03/27/18 00:21 Seg Neuts % (Manual) 81.0 % (40.0-70.0) H 03/29/18 05:51 Band Neutrophils % 5.0 % 03/29/18 05:51 Lymphocytes % (Manual) 9.0 % (13.4-35.0) L 03/29/18 05:51 Reactive Lymphs % (Man) 0 % 03/29/18 05:51 Monocytes % (Manual) 4.0 % (0.0-7.3) 03/29/18 05:51 Eosinophils % (Manual) 0 % (0.0-4.3) 03/29/18 05:51 Basophils % (Manual) 0 % (0.0-1.8) 03/29/18 05:51 Metamyelocytes % 1.0 % 03/29/18 05:51 Myelocytes % 0 % 03/29/18 05:51 Promyelocytes % 0 % 03/29/18 05:51 Blast Cells % 0 % 03/29/18 05:51 Nucleated RBC % Not Reportable 03/29/18 05:51 Seg Neutrophils # [place] 03/23/18 14:58 Seg Neutrophils # Man 13.1 K/mm3 (1.8-7.7) H 03/29/18 05:51 Band Neutrophils # 0.8 K/mm3 03/29/18 05:51 Lymphocytes # (Manual) 1.5 K/mm3 (1.2-5.4) 03/29/18 05:51 Abs React Lymphs (Man) 0.0 K/mm3 03/29/18 05:51 Monocytes # (Manual) 0.6 K/mm3 (0.0-0.8) 03/29/18 05:51 Eosinophils # (Manual) 0.0 K/mm3 (0.0-0.4) 03/29/18 05:51 Basophils # (Manual) 0.0 K/mm3 (0.0-0.1) 03/29/18 05:51 Metamyelocytes # 0.2 K/mm3 03/29/18 05:51 Myelocytes # 0.0 K/mm3 03/29/18 05:51 Promyelocytes # 0.0 K/mm3 03/29/18 05:51 Blast Cells # 0.0 K/mm3 03/29/18 05:51 WBC Morphology Not Reportable 03/29/18 05:51 Hypersegmented Neuts Not Reportable 03/29/18 05:51 Hyposegmented Neuts Not Reportable 03/29/18 05:51 Hypogranular Neuts Not Reportable 03/29/18 05:51 Smudge Cells Not Reportable 03/29/18 05:51 Toxic Granulation Not Reportable 03/29/18 05:51 Toxic Vacuolation Not Reportable 03/29/18 05:51 Dohle Bodies Not Reportable 03/29/18 05:51 Pelger-Huet Anomaly Not Reportable 03/29/18 05:51 [place] Rods Not Reportable 03/29/18 05:51 Platelet Estimate Consistent w auto 03/29/18 05:51 Clumped Platelets Not Reportable 03/29/18 05:51 Plt Clumps, EDTA Not Reportable 03/29/18 05:51 Large Platelets Not Reportable 03/29/18 05:51 Giant Platelets Not Reportable 03/29/18 05:51 Platelet Satelliting Not Reportable 03/29/18 05:51 Plt Morphology Comment Not Reportable 03/29/18 05:51 RBC Morphology Not Reportable 03/29/18 05:51 Dimorphic RBCs Not Reportable 03/29/18 05:51 Polychromasia Not Reportable 03/29/18 05:51 Hypochromasia 1+ 03/29/18 05:51 Poikilocytosis Not Reportable 03/29/18 05:51 Anisocytosis 1+ 03/29/18 05:51 Microcytosis Not Reportable 03/29/18 05:51 Macrocytosis Not Reportable 03/29/18 05:51 Spherocytes Not Reportable 03/29/18 05:51 Pappenheimer Bodies Not Reportable 03/29/18 05:51 Sickle Cells Not Reportable 03/29/18 05:51 Target Cells Not Reportable 03/29/18 05:51 Tear Drop Cells Not Reportable 03/29/18 05:51 Ovalocytes Not Reportable 03/29/18 05:51 Helmet Cells Not Reportable 03/29/18 05:51 [place] Bodies Not Reportable 03/29/18 05:51 [place] Rings Not Reportable 03/29/18 05:51 [place] Cells Not Reportable 03/29/18 05:51 Bite Cells Not Reportable 03/29/18 05:51 Crenated Cell Not Reportable 03/29/18 05:51 Elliptocytes Not Reportable 03/29/18 05:51 Acanthocytes (Spur) Not Reportable 03/29/18 05:51 Rouleaux Not Reportable 03/29/18 05:51 Hemoglobin C Crystals Not Reportable 03/29/18 05:51 Schistocytes Not Reportable 03/29/18 05:51 Malaria parasites Not Reportable 03/29/18 05:51 [place] Bodies Not Reportable 03/29/18 05:51 Hem Pathologist Commnt No 03/29/18 05:51 PT 13.4 Sec. (12.2-14.9) 03/21/18 14:31 INR 0.97 (0.87-1.13) 03/21/18 14:31 POC ABG pH 7.376 (7.35-7.45) 03/22/18 15:07 POC ABG pCO2 36.9 (35-45) 03/22/18 15:07 POC ABG pO2 62 (80-105) L 03/22/18 15:07 POC ABG HCO3 21.6 03/22/18 15:07 POC ABG Total CO2 23 03/22/18 15:07 POC ABG O2 Sat 91 03/22/18 15:07 POC ABG Base Excess -4 03/22/18 15:07 VBG pH 7.371 (7.320-7.420) 03/21/18 14:25 FiO2 40 % 03/22/18 15:07 Sodium 142 mmol/L (137-145) 03/30/18 06:37 Potassium 4.3 mmol/L (3.6-5.0) 03/30/18 06:37 Chloride 106.0 mmol/L (98-107) 03/30/18 06:37 Carbon Dioxide 23 mmol/L (22-30) 03/30/18 06:37 Anion Gap 17 mmol/L 03/30/18 06:37 BUN 53 mg/dL (9-20) H 03/30/18 06:37 Creatinine 4.3 mg/dL (0.8-1.5) H 03/30/18 06:37 Estimated GFR 17 ml/min 03/30/18 06:37 BUN/Creatinine Ratio 12 % 03/30/18 06:37 Glucose 93 mg/dL (75-100) 03/30/18 06:37 Hemoglobin A1c 5.8 % (4-6) 03/21/18 14:06 Lactic Acid 1.10 mmol/L (0.7-2.0) 03/21/18 17:11 Uric Acid 7.2 mg/dL (3.5-7.6) 03/22/18 16:21 Calcium 8.4 mg/dL (8.4-10.2) 03/30/18 06:37 Total Bilirubin 1.90 mg/dL (0.1-1.2) H 03/22/18 06:54 Direct Bilirubin 2.2 mg/dL (0-0.2) H 03/21/18 15:13 Indirect Bilirubin 0.7 mg/dL 03/21/18 15:13 AST 136 units/L (5-40) H 03/22/18 06:54 ALT 142 units/L (7-56) H 03/22/18 06:54 Alkaline Phosphatase 135 units/L (35-129) H 03/22/18 06:54 Troponin T < 0.010 ng/mL (0.00-0.029) 03/21/18 15:17 C-Reactive Protein 9.90 mg/dL (0.00-1.30) H 03/24/18 12:08 NT-Pro-B Natriuret Pep 1188 pg/mL (0-900) H 03/21/18 15:17 Total Protein 6.0 g/dL (6.3-8.2) L 03/22/18 06:54 Albumin 2.5 g/dL (3.9-5) L 03/22/18 06:54 Albumin/Globulin Ratio 0.7 % 03/22/18 06:54 Urine Color Yellow (Yellow) 03/21/18 17:52 Urine Turbidity Clear (Clear) 03/21/18 17:52 Urine pH 5.0 (5.0-7.0) 03/21/18 17:52 Ur Specific [place] 1.010 (1.003-1.030) 03/21/18 17:52 Urine Protein 30 mg/dl mg/dL (Negative) 03/21/18 17:52 Urine Glucose (UA) Neg mg/dL (Negative) 03/21/18 17:52 Urine Ketones Neg mg/dL (Negative) 03/21/18 17:52 Urine Blood Mod (Negative) 03/21/18 17:52 Urine Nitrite Neg (Negative) 03/21/18 17:52 Urine Bilirubin Neg (Negative) 03/21/18 17:52 Urine Urobilinogen 4.0 mg/dL (<2.0) 03/21/18 17:52 Ur Leukocyte Esterase Neg (Negative) 03/21/18 17:52 Urine WBC (Auto) 5.0 /HPF (0.0-6.0) 03/21/18 17:52 Urine RBC (Auto) 16.0 /HPF (0.0-6.0) 03/21/18 17:52 U Epithel Cells (Auto) 1.0 /HPF (0-13.0) 03/21/18 17:52 Urine Bacteria (Auto) 1+ /HPF (Negative) 03/21/18 17:52 Amorphous Crystals Few 03/21/18 17:52 Urine Creatinine 87.4 mg/dL (0.1-20.0) H 03/23/18 21:15 Urine Sodium 53 mmol/L 03/23/18 21:15 Urine Total Protein 21 mg/dL (5-11.8) H 03/23/18 21:15 Hepatitis A IgM Ab Non-reactive (NonReactive) 03/22/18 16:21 Hep Bs Antigen Non-reactive (Negative) 03/22/18 16:21 Hep B Core IgM Ab Non-reactive (NonReactive) 03/22/18 16:21 Hepatitis C Antibody Non-reactive (NonReactive) 03/22/18 16:21 HIV 1&2 Antibody Rapid Non react (Non React) 03/24/18 12:08 HIV P24 Antigen Non react (Non React) 03/24/18 12:08
--- NOTE | 2018-03-30 15:50 | Discharge Summary ---
Providers - Providers Date of Admission: 03/21/18 19:25 Attending physician: CADEN CARSON MD 03/21/18 19:25 Consult to Physician [CONS] Routine Comment: Consulting Provider: FADUMO CAPPS Physician Instructions: Reason For Exam: OSIEL 03/22/18 14:54 Consult to Physician [CONS] Routine Comment: Consulting Provider: ROSAURA MCCABE Physician Instructions: Reason For Exam: resp failure 03/23/18 10:35 Consult to Physician [CONS] Routine Comment: Consulting Provider: KIA CRAMER Physician Instructions: Reason For Exam: bilateral pneumonia and sepsis Primary care physician: HYDRO GENERATION MANAGER Hospitalization Reason for admission: acute renal failure, sepsis secondary to pneumonia Condition: Stable Pertinent studies: CTA bilateral pneumonia Echo normal findings Renal Ultrasound no obstruction, no hydronephrosis Hospital course: 58-year-old black male with no significant past medical history comes in for fever and cough of 4 days duration. Cough productive of mucoid to yellow sputum. No chills. Some shortness of breath present. No chest pain. Patient smokes a word to half a pack a day. For the last 40 years. No other drugs. Patient was admitted to the floor was a management of sepsis, acute renal failure, acute respiratory failure, and electrolyte abnormalities. Patient was treated according to sepsis protocol and showed marked improvement, ID recommendations appreciated. Patient has acute renal failure and nephrology has been following the patient, on admission creatinine was around 6 and at the time of discharge creatinine was 4.3 nephrology will follow in the office. Patient was hemodynamically stable at the time of discharge. Patient's questions and concerns were addressed at the bedside. Disposition: TO HOME OR SELFCARE Time spent for discharge: 32 minutes - Discharge Diagnoses (1) Acute renal failure Status: Acute Qualifiers: Acute renal failure type: unspecified Qualified Code(s): N17.9 - Acute kidney failure, unspecified (2) Pneumonia Status: Acute Qualifiers: Pneumonia type: due to unspecified organism Laterality: right Lung location: lower lobe of lung Qualified Code(s): J18.1 - Lobar pneumonia, unspecified organism (3) Sepsis Status: Acute Qualifiers: Sepsis type: sepsis due to unspecified organism Qualified Code(s): A41.9 - Sepsis, unspecified organism Core Measure Documentation - Palliative Care Palliative Care/ Comfort Measures: Not Applicable - Core Measures Any of the following diagnoses?: none Exam - Physical Exam Narrative exam: Not in cardiopulmonary distress. The patient is obese. Vital signs as documented. Head exam is unremarkable. No scleral icterus . Neck is without jugular venous distension, thyromegaly, or carotid bruits. Lungs are clear to auscultation. Cardiac exam reveals regular rate and Rhythm. First and second heart sounds normal. No murmurs, rubs or gallops. Abdominal exam reveals normal bowel sounds, no masses, no organomegaly and no aortic enlargement. Extremities are nonedematous and both femoral and pedal pulses are normal. LINE RIDER: Alert and oriented 3. No focal weakness. - Constitutional Vitals: Temp Pulse Resp BP Pulse Ox 97.9 F 90 20 128/66 97 03/30/18 11:15 03/30/18 14:45 03/30/18 14:45 03/30/18 11:15 03/30/18 11:15 Plan Activity: no restrictions Weight Bearing Status: Full Weight Bearing Diet: renal Additional Instructions: Follow-up at [facility] within 1-2 weeks Follow up with: ABY EASTMAN MD [Primary Care Provider] - 3-5 Days ASHWIN PAINTER MD [Staff Physician] - 7 Days Prescriptions: predniSONE [Deltasone] 20 mg PO QDAY #5 tablet
--- NOTE | 2018-03-30 16:46 | Progress Note ---
Assessment and Plan Impression: * Nonoliguric acute kidney injury secondary to ATN vs contrast induced nephropathy --HIV and hepatitis negative * PNA * Hyponatremia * Metabolic acidosis * Leukocytosis - likey steroid induced Plan: * SCr is stable c/w yesterday 4.3 - baseline renal function unknown * Abx per ID * Await pending serologies: ANCA, URIEL, C3/C4, antiGBM, SPEP, UPEP * Encouraged po hydration * Dose medications for renal function * Avoid potential nephrotoxins * Stable for d/c from a renal standpoint - will need close outpatient nephrology follow up Subjective Date of service: 03/30/18 Principal diagnosis: pneumonia Objective - Vital Signs Vital signs: Vital Signs - 12hr 03/30/18 03/30/18 03/30/18 05:43 10:15 10:24 Temperature 97.8 F Pulse Rate 74 Pulse Rate [ 87 Anterior Bilateral Lower Lobe] Pulse Rate [ 87 83 Anterior Bilateral Throughout] Respiratory 24 Rate Respiratory 20 Rate [Anterior Bilateral Lower Lobe] Respiratory 20 20 Rate [Anterior Bilateral Throughout] Blood Pressure 144/86 O2 Sat by Pulse 96 Oximetry 03/30/18 03/30/18 11:15 14:45 Temperature 97.9 F Pulse Rate 74 Pulse Rate [ 90 Anterior Bilateral Lower Lobe] Pulse Rate [ 90 Anterior Bilateral Throughout] Respiratory 20 Rate Respiratory 20 Rate [Anterior Bilateral Lower Lobe] Respiratory 20 Rate [Anterior Bilateral Throughout] Blood Pressure 128/66 O2 Sat by Pulse 97 Oximetry - Lab 03/29/18 05:51 03/30/18 06:37 Most recent lab results Calcium 8.4 mg/dL (8.4-10.2) 03/30/18 06:37 Urine Creatinine 87.4 mg/dL (0.1-20.0) H 03/23/18 21:15 Urine Sodium 53 mmol/L 03/23/18 21:15 Urine Total Protein 21 mg/dL (5-11.8) H 03/23/18 21:15
== END 2018-03-30 16:45 | disposition home or self-care (01) | DRG 871 ==
LOC: ED 13:48 → 3A 19:25 → UNDODISIN 03-25 12:30
PROVIDERS: ADMIT Internal Medicine; ATTEND Internal Medicine
PROC: 3E0234Z Introduction of Serum, Toxoid and Vaccine into Muscle, Percutaneous Approach (ICD-10-PCS; principal; 2018-03-22)
PROC: 4A033R1 Measurement of Arterial Saturation, Peripheral, Percutaneous Approach (ICD-10-PCS; 2018-03-22)
PROC: 5A09357 Assistance with Respiratory Ventilation, Less than 24 Consecutive Hours, Continuous Positive Airway Pressure (ICD-10-PCS; 2018-03-22)
PROC: 5A09357 Assistance with Respiratory Ventilation, Less than 24 Consecutive Hours, Continuous Positive Airway Pressure (ICD-10-PCS; 2018-03-23)
PROC: 5A09357 Assistance with Respiratory Ventilation, Less than 24 Consecutive Hours, Continuous Positive Airway Pressure (ICD-10-PCS; 2018-03-24)
PROC: 5A09357 Assistance with Respiratory Ventilation, Less than 24 Consecutive Hours, Continuous Positive Airway Pressure (ICD-10-PCS; 2018-03-26)
DX: A41.9 Sepsis, unspecified organism (principal); J18.1 Lobar pneumonia, unspecified organism; J96.01 Acute respiratory failure with hypoxia; N17.9 Acute kidney failure, unspecified; E87.1 Hypo-osmolality and hyponatremia; J44.0 Chronic obstructive pulmonary disease with (acute) lower respiratory infection; F17.210 Nicotine dependence, cigarettes, uncomplicated; E87.6 Hypokalemia; E66.9 Obesity, unspecified; Z68.34 Body mass index [BMI] 34.0-34.9, adult; Z23 Encounter for immunization
CPT/HCPCS: 36415; 36600; 71045; 71046; 71275; 74176; 76770; 80048; 80053; 80074; 81001; 82140; 82570; 82803; 82805; 83036; 83520; 83880; 84156; 84165; 84166; 84300; 84484; 84550; 85007; 85025; 85610; 86021; 86038; 86140; 86160; 87040; 87086; 87205; 87449; 87806; 90732; 93005; 93010; 93306; 94640; 94660; 94760; 96361; 96365; 96366; 99406; J0456; J0696; J1644; J1956; J2543; J2920; J3370; J7030; J7040; J7042; J7050; J7512; Q9967